=== PATIENT | female | born 1960 | race Two or more races ===

== ENCOUNTER 2024-11-12 23:35 | Inpatient (IN) | payer MEDICARE, OTHER ==
[~2024-11-12] VITALS: Ht 165.1 cm; Wt 169.8 kg
[2024-11-13] VITALS (12 sets, daily range): BP systolic 100–129; BP diastolic 26–48; PULSE 56–97; RESP 16–20; TEMP 98.1–98.4; O2SAT 95–100
--- NOTE | 2024-11-13 00:05 | ED.PDOC ---
SOB-HPI HPI Comments 64-year-old female with a history of chronic lymphedema, anemia, morbid obesity, hypertension, dyslipidemia, GERD, hypothyroidism, CKD, asthma, arthritis and vertigo brought in by EMS for shortness of breath. EMS reports patient's initial oxygen saturation was 88% on room air, improved to 95% on 2 L nasal cannula. Patient states she has been progressively more short of breath for the past week, with the associated dry cough and wheezing. She states she has used her home nebulizer and inhaler without relief. Patient also notes worsening lower extremity edema for the past 3 weeks, with edema now extending to her torso and upper extremities. She states she was taken off Lasix years ago by her primary physician, as she was told it would not help with lymphedema. She states she has been seen by a senior technical writer in the past, underwent workup including Holter monitoring, and was told there was no heart disease. She denies any chest pain, fever, decreased urine output or new extremity pain. She does have a history of chronic arthritis in her knees and hips, which she states has been stable. Patient states she is having difficulty ambulating due to the worsening edema in her legs and the shortness of breath. She states she has not been able to follow-up with her primary doctor because she is unable to get into her car. Patient states her has not been able to assist her. Chief Complaint: Shortness of Breath Time Seen by MD: 00:05 Reviewed notes: Didactic Instructor Notes Information Source: Patient, Emergency Med Personnel Mode of Arrival: EMS Severity: Moderate Timing: Weeks Duration: Since onset Context: At Rest, With Light Exertion History of: Asthma Prehospital treatment: 12 Lead EKG, Breathing Tx, Oxygen Associated Signs and Symptoms: Wheeze, Cough If cough with SOB: Non-Productive Past Medical History PAST MEDICAL HISTORY: Anemia, Arthritis, Asthma, CKF, GERD, High Lipids, HTN, Thyroid (Hypo) Past Medical History (Other): Lymphedema, morbid obesity Surgical History: Cholecystectomy, Hysterectomy Surgical History (Other): Gastric bypass TALENT ACQUISITION ASSOCIATE History: Denies all TALENT ACQUISITION ASSOCIATE Hx Family History Family History: Reviewed,noncontributory to illness Social History Smoker: Non-Smoker, Quit Greater Than 1 Year Alcohol: Denies ETOH Use Drugs: Denies Drug Use Lives In: Home Constitutional: reports: fatigue, weakness; denies: chills, diaphoresis, fever, malaise, sweats, others EENTM: denies: blurred vision, double vision, ear bleeding, ear discharge, ear drainage, ear pain, ear ringing, eye pain, eye redness, hearing loss, mouth pain, mouth swelling, nasal discharge, nose bleeding, nose congestion, nose pain, photophobia, tearing, throat pain, throat swelling, voice changes, others Respiratory: reports: cough, SOB at rest, shortness of breath, SOB with excertion, wheezing; denies: hemoptysis, orthopnea, stridor, others Cardiovascular: reports: chest pain; denies: dizzy spells, diaphoresis, Dyspnea on exertion, edema, irregular heart beat, left arm pain, lightheadedness, palpitations, PND, syncope, others Gastrointestinal: denies: abdomen distended, abdominal pain, blood streaked bowels, constipated, diarrhea, dysphagia, difficulty swallowing, hematemesis, melena, nausea, poor appetite, poor fluid intake, rectal bleeding, rectal pain, vomiting, others Genitourinary: denies: abnormal vagina bleeding, burning, dyspareunia, dysuria, flank pain, frequency, hematuria, incontinence, pain, , vagina discharge, urgency, others Neurological: denies: dizziness, fainting, headache, left sided numbness, left sided weakness, numbness, paresthesia, pre-existing deficit, right sided numbness, right sided weakness, seizure, speech problems, tingling, tremors, weakness, others Musculoskeletal: denies: back pain, gout, joint pain, joint swelling, muscle pain, muscle stiffness, neck pain, others Integumetry: denies: bruises, change in color, change in hair/nails, dryness, laceration, lesions, lumps, rash, wounds, others Allergic/Immunocompromised: denies: Difficulty Healing, Frequent Infections, Hives, Itching, others Hematologic/Lymphatic: denies: anemia, blood clots, easy bleeding, easy bruising, swollen glands, others Endocrine: denies: excessive hunger, excessive sweating, excessive thirst, excessive urination, flushing, intolerance to cold, intolerance to heat, unexplained weight gain, unexplained weight loss, others Psychiatric: denies: anxiety, bipolar disorder, depression, hopeless, panic disorder, schizophrenia, sleepless, suicidal, others Physical Exam General Appearance: No Apparent Distress, Obese HEENT: Other (Pupils and face symmetric. Moist mucous membranes.) Neck: Full Range of Motion, Normal Inspection Respiratory: Crackles, No Accessory Muscle Use, No Respiratory Distress Cardiovascular: No JVD, Regular Rate/Rhythm Breast Exam: Deferred Gastrointestinal: Non Tender, Soft Genitalia: Deferred Pelvic: Deferred Rectal: Deferred Extremities: Leg edema, Non-tender, Pedal edema, Other (4+ bilateral lower extremity pitting edema) Neurologic: Alert (Oriented x4), Normal Affect, Normal Mood Cerebellar Function: NOT DONE Reflexes: NOT DONE Skin: Dry, Pallor, Warm Lymphatic: NOT DONE EKG EKG : Comments Sinus rhythm, rate 77, short CA interval at 53, normal QRS and QTC intervals, normal axis, normal QRS, no ST/T changes. Was a procedure done? Was a procedure done?: No Differential Dx Differential Diagnosis: Asthma, Bronchitis, CHF, COPD, Myocardial infarction, Panic Attack, Pneumonia, Respiratory Distress, URI Comments anemia, liver disease, kidney disease, worsening lymphedema, DVT, among others X-Ray, Labs, Meds, VS Vital Signs Date Time Temp Pulse Resp B/P (MAP) Pulse Ox O2 Delivery O2 Flow Rate FiO2 11/13/24 05:28 98.2 80 18 124/42 98.2 11/13/24 05:13 98.1 56 18 100/27 98.1 11/13/24 05:05 98.1 73 18 113/26 98.1 11/13/24 04:45 98.1 75 18 100/24 (49) 97 98.1 11/13/24 04:00 57 17 104/27 (52) 98 11/13/24 02:00 77 14 127/68 (87) 98 11/13/24 01:45 97.9 83 12 112/29 (56) 98 97.9 11/13/24 00:48 20 96 Nasal Cannula* 3 32 11/13/24 00:30 Nasal Cannula* 4 36 11/13/24 00:06 98.6 84 24 119/43 (68) 96 98.6 11/12/24 23:40 77 Lab Test 11/13/24 04:20 11/13/24 01:04 11/13/24 00:10 Range/Units Urine Color Light-yellow Yellow Urine Clarity Clear Clear Urine pH 5.5 5.0-9.0 Urine Specific [place] 1.021 1.001-1.035 Urine Protein Negative Negative Urine Ketones Negative Negative Urine Blood Negative Negative /uL Urine Nitrite 1+ H Negative Urine Bilirubin Negative Negative Urine Urobilinogen Normal Negative mg/dL Urine Leukocyte Esterase Negative Negative /uL Urine RBC <1 0 - 4 /hpf Urine Microscopic WBC < 1 0-5 /HPF Urine Squamous Epithelial Cells Few <5 /hpf Urine Bacteria Few H None Seen /hpf Urine Yeast (Budding) Occasional None Seen /hpf Urine Glucose Normal Normal mg/dL Troponin I High Sensitivity < 3 L < 3 L </=34 ng/L White Blood Count 5.2 4.4-10.8 10^3/uL Red Blood Count 3.07 L 4.0-5.20 10^6/uL Hemoglobin 6.2 *L 12.2-16.2 g/dL Hematocrit 21.6 L 36.0-46.0 % Mean Corpuscular Volume 70.3 L 80.0-100.0 fL Mean Corpuscular Hemoglobin 20.3 L 28.0-32.0 pg Mean Corpuscular Hemoglobin Concent 28.8 L 32.0-36.0 g/dL Red Cell Distribution Width 21.2 H 11.8-14.3 % Platelet Count 295 140-450 10^3/uL Mean Platelet Volume 8.3 6.9-10.8 fL Neutrophils (%) (Auto) 51.6 37.0-80.0 % Lymphocytes (%) (Auto) 35.1 10.0-50.0 % Monocytes (%) (Auto) 10.3 0.0-12.0 % Eosinophils (%) (Auto) 2.3 0.0-7.0 % Basophils (%) (Auto) 0.7 0.0-2.0 % Neutrophils # (Auto) 2.7 1.6-8.6 10 ^3/uL Lymphocytes # (Auto) 1.8 0.4-5.4 10 ^3/uL Monocytes # (Auto) 0.5 0-1.3 10 ^3/uL Eosinophils # (Auto) 0.1 0-0.8 10 ^3/uL Basophils # (Auto) 0 0-0.2 10 ^3/uL Nucleated Red Blood Cells 0.4 % Platelet Estimate Adequate Hypochromasia (manual) Moderate Anisocytosis (manual) Slight Microcytosis Slight Stomatocytes Few Sodium Level 143 136-145 mmol/L Potassium Level 4.5 3.5-5.1 mmol/L Chloride Level 111 H 98-107 mmol/L Carbon Dioxide Level 25 20-31 mmol/L Anion Gap 7 5-15 Blood Urea Nitrogen 32 H 9-23 mg/dL Creatinine 0.77 0.550-1.02 mg/dL Glomerular Filtration Rate Calc 86 >90 mL/min BUN/Creatinine Ratio 41.6 H 10.0-20.0 Serum Glucose 100 74-106 mg/dL Calcium Level 7.8 L 8.7-10.4 mg/dL Total Bilirubin 0.3 0.2-1.0 mg/dL Aspartate Amino Transferase (AST) 17 13-40 U/L Alanine Aminotransferase (ALT) 13 7-40 U/L Alkaline Phosphatase 100 46-116 U/L B-Type Natriuretic Peptide 238.74 0-100 pg/mL Total Protein 4.9 L 5.7-8.2 g/dL Albumin 2.8 L 3.2-4.8 g/dL Current Medications Medications (Trade) Dose Ordered Sig/Winifred Route Start Time Stop Time Status Last Admin Albuterol (Ventolin Medneb) 5 mg ONCE ONCE NEB 11/13/24 00:00 11/13/24 00:01 DC 11/13/24 00:47 Ipratropium [place] (Atrovent Medneb) 0.5 mg ONCE ONCE NEB 11/13/24 00:00 11/13/24 00:01 DC 11/13/24 00:47 Methylprednisolone Sodium Succinate (Solu Medrol) 125 mg ONCE ONCE IV 11/13/24 00:00 11/13/24 00:01 DC 11/13/24 01:35 Acetaminophen/ Hydrocodone Bitart (Ledbetter 5/325MG Tab) 2 tab ONCE ONCE PO 11/13/24 00:00 11/13/24 00:02 DC 11/13/24 01:43 PROCEDURE(s): CXRP - CHEST PORTABLE REASON: sob ORDER NUMBER(s): [id number], ACCESSION NUMBER(s): [id number] EXAM: XY CHEST PORTABLE CLINICAL HISTORY: sob TECHNIQUE: Single AP view of the chest WID: COMPARISON: None FINDINGS: Lines and tubes: None Chest: Cardiomegaly with mild prominence of the central pulmonary vasculature. Prominence of the main pulmonary artery. No pleural effusion, pneumothorax, or consolidation. The osseous structures are grossly intact. IMPRESSION: Mild cardiomegaly and pulmonary vascular congestion. Prominence of the main pulmonary artery which can be seen in the setting of pulmonary hypertension. EDURE(s): BLDVT - BiLat Lower DVT REASON: edema ORDER NUMBER(s): [id number], ACCESSION NUMBER(s): [id number] CLINICAL HISTORY: edema TECHNIQUE: Color and duplex doppler imaging of the bilateral lower extremity veins was performed. Vessel compression if possible was also performed. WID: COMPARISON: None FINDINGS: Slightly limited exam due to patient immobility and body habitus. Some of the deep veins in both lower extremities are not visualized. Right Lower Extremity: Right common femoral vein: Normal compressibility and flow. Right femoral vein: The right mid superficial femoral vein not visualized. Otherwise Normal compressibility and flow. Right popliteal vein: Normal compressibility and flow. Proximal calf veins are normally compressible. Left Lower Extremity: Left common femoral vein: Normal compressibility and flow. Left femoral vein: The left mid superficial femoral vein not visualized. Otherwise, Normal compressibility and flow. Left popliteal vein: Not visualized Calf veins are not visualized. IMPRESSION: NO SONOGRAPHIC EVIDENCE FOR DEEP VENOUS THROMBOSIS IN THE visualized BILATERAL LOWER EXTREMITY VEINS. Some of the deep veins are not visualized X-Ray, Labs, Meds, VS Comment 64-year-old female with a history of chronic lymphedema, anemia, hypertension, dyslipidemia, GERD, hypothyroid, CKD, asthma, arthritis, vertigo and morbid obesity presenting with shortness of breath Vitals remarkable for oxygen saturation 88% on room air Exam remarkable for rales at bilateral lung bases and pallor Rhythm strip independently interpreted by me: Sinus rhythm, rate 77, no ectopy. Chest x-ray IMPRESSION: Mild cardiomegaly and pulmonary vascular congestion. Prominence of the main pulmonary artery which can be seen in the setting of pulmonary hypertension. Bilateral lower extremity ultrasound negative for DVT CBC remarkable for hemoglobin 6.2, hematocrit 21.6, CMP remarkable for BUN 32, BNP 238.74, troponin negative Patient treated with the following in the ED: Albuterol 5 mg/Atrovent 0.5 mg nebulized, Solu-Medrol 125 mg IV, Ledbetter 5/325 mg 2 tabs p.o. Typed and crossed for 1 unit packed red cells and transfusion ordered On re-evaluation after the breathing treatment, symptoms have improved. Patient is saturating normally on nasal cannula oxygen and not in respiratory distress. Plan is to admit the patient for transfusion and respiratory support as needed. Patient might benefit from cardiology evaluation to rule out CHF. Time of 1ST Reevaluation: 23:52 Reevaluation 1ST: Unchanged Time of 2ND Reevaluation: 02:00 Reevaluation 2ND: Improved Patient Education/Counseling: Diagnosis, Treatment Family Education/Counseling: No Family Present SEPSIS Sepsis Screen Physician Orders Chest Portable (11/12/24 23:53) Electrocardigram (11/12/24 23:53) Bilat Lower Dvt (11/13/24 00:12) Insert/Manage Urinary Catheter QSHIFT (11/13/24 02:18) Vital Signs Date Time Temp Pulse Resp B/P (MAP) Pulse Ox O2 Delivery O2 Flow Rate FiO2 11/13/24 05:28 98.2 80 18 124/42 98.2 11/13/24 05:13 98.1 56 18 100/27 98.1 11/13/24 05:05 98.1 73 18 113/26 98.1 11/13/24 04:45 98.1 75 18 100/24 (49) 97 98.1 11/13/24 04:00 57 17 104/27 (52) 98 11/13/24 02:00 77 14 127/68 (87) 98 11/13/24 01:45 97.9 83 12 112/29 (56) 98 97.9 11/13/24 00:48 20 96 Nasal Cannula* 3 32 11/13/24 00:30 Nasal Cannula* 4 36 11/13/24 00:06 98.6 84 24 119/43 (68) 96 98.6 11/12/24 23:40 77 Laboratory Tests Test 11/13/24 00:10 White Blood Count 5.2 10^3/uL (4.4-10.8) Medications Medications Dose Ordered Sig/Winifred Route Start Time Stop Time Status Last Admin Dose Admin Acetaminophen/ Hydrocodone Bitart 2 tab ONCE ONCE PO 11/13/24 00:00 11/13/24 00:02 DC 11/13/24 01:43 Albuterol 5 mg ONCE ONCE NEB 11/13/24 00:00 11/13/24 00:01 DC 11/13/24 00:47 Ipratropium [place] 0.5 mg ONCE ONCE NEB 11/13/24 00:00 11/13/24 00:01 DC 11/13/24 00:47 Methylprednisolone Sodium Succinate 125 mg ONCE ONCE IV 11/13/24 00:00 11/13/24 00:01 DC 11/13/24 01:35 Departure 1 Departure Time of Disposition: 00:50 Impression: Primary Impression: Symptomatic anemia Additional Impressions: Asthma exacerbation Acute respiratory failure Disposition: ADMITTED INPATIENT Admit to: Tele Condition: Guarded Critical Care Note Critical Care Time?: Yes (35 min-critical care time only) Critical care comment: Critical care time including multiple bedside re-evaluations, review of lab and imaging studies, and discussion of the case with the admitting provider. Patient is high risk for respiratory and/or hemodynamic decompensation. Stability Stability form required: No Heart Score Heart Score: Heart Score Response (Comments) Value History N/A 0 EKG N/A 0 Age N/A 0 Risk Factors N/A 0 Troponin N/A 0 Total 0 I personally scribed for MARISA CARTER MD ([email or web address]) on 11/13/24 at 00:05. Electronically submitted by Julio Turner ([email or web address]). I personally scribed for MARISA CARTER MD ([email or web address]) on 11/13/24 at 00:06. Electronically submitted by Julio Turner ([facility]). MARISA CRATER MD Nov 13, 2024 00:05
[2024-11-13 00:30] LABS: Hematocrit 21.6 % (36.0-46.0); Mean Corpuscular Hemoglobin 20.3 pg (28.0-32.0); Mean Corpuscular Volume 70.3 fL (80.0-100.0); Nucleated Red Blood Cells % 0.4 %
[2024-11-13 00:34] LABS: Hemoglobin 6.2 g/dL (12.2-16.2)
[2024-11-13 00:44] LABS: Alanine Aminotransferase 13 U/L (7-40); Alkaline Phosphatase 100 U/L (46-116); Anion Gap 7 (5-15); BUN/Creatinine Ratio 41.6 (10.0-20.0); Carbon Dioxide 25 mmol/L (20-31); Glucose 100 mg/dL (74-106); Potassium 4.5 mmol/L (3.5-5.1); Sodium 143 mmol/L (136-145)
[2024-11-13] MEDS: IPRATROPIUM BROM 0.5 MG/2.5ML INH SOL NEB ONE (00:47)
[2024-11-13] MEDS: ALBUTEROL SULF 2.5 MG/0.5ML(0.5%) NEB SOLN NEB ONE (00:47)
[2024-11-13 00:49] LABS: Albumin 2.8 g/dL (3.2-4.8); Bilirubin, Total 0.3 mg/dL (0.2-1.0); Blood Urea Nitrogen 32 mg/dL (9-23); Calcium 7.8 mg/dL (8.7-10.4); Chloride 111 mmol/L (98-107); Total Protein 4.9 g/dL (5.7-8.2)
[2024-11-13 00:55] LABS: Anisocytosis Slight
[2024-11-13 00:57] LABS: Stomatocytes Few
--- NOTE | 2024-11-13 01:21 | DVH ---
CLINICAL HISTORY: edema TECHNIQUE: Color and duplex doppler imaging of the bilateral lower extremity veins was performed. Ves delmy compression if possible was also performed. WID: COMPARISON: None FINDINGS: Slightly limited exam due to patient immobility and body habitus. Some of the deep veins in both lowe r extremities are not visualized. Right Lower Extremity: Right common femoral vein: Normal compressibility and flow. Right femoral vein: The right mid superficial femoral vein not visualized. Otherwise Normal compressi bility and flow. Right popliteal vein: Normal compressibility and flow. Proximal calf veins are normally compressible. Left Lower Extremity: Left common femoral vein: Normal compressibility and flow. Left femoral vein: The left mid superficial femoral vein not visualized. Otherwise, Normal compressib ility and flow. Left popliteal vein: Not visualized Calf veins are not visualized. IMPRESSION: NO SONOGRAPHIC EVIDENCE FOR DEEP VENOUS THROMBOSIS IN THE visualized BILATERAL LOWER EXTREMITY VEINS. Some of the deep veins are not visualized
[2024-11-13] MEDS: methylPREDNISolone SOD SUCC 125 MG/2 ML VL IV ONE (01:35)
[2024-11-13] MEDS: HYDROcodone-ACET 5/325MG TAB PO ONE (01:43)
--- NOTE | 2024-11-13 02:04 | DVH ---
EXAM: XY CHEST PORTABLE CLINICAL HISTORY: sob TECHNIQUE: Single AP view of the chest WID: COMPARISON: None FINDINGS: Lines and tubes: None Chest: Cardiomegaly with mild prominence of the central pulmonary vasculature. Prominence of the main pulmon nancy artery. No pleural effusion, pneumothorax, or consolidation. The osseous structures are grossly intact. IMPRESSION: Mild cardiomegaly and pulmonary vascular congestion. Prominence of the main pulmonary artery which can be seen in the setting of pulmonary hypertension.
[2024-11-13 05:26] LABS: Urine Budding Yeast OCCASIONAL /hpf (None Seen); Urine Protein, UAD Negative (Negative)
[2024-11-13] MEDS ORDERED: ONDANSETRON HCL 4 MG/2 ML VIAL IV PRN (05:45)
[2024-11-13] MEDS ORDERED: NITROGLYCERIN 0.4 MG SL TAB SL PRN (05:45)
[2024-11-13] MEDS ORDERED: MORPHINE SULFATE INJ 2 MG/ml SYRG IV PRN (05:45)
--- NOTE | 2024-11-13 06:13 | DVHHP2 ---
History of Present Illness Reason for Visit: Symptomatic anemia History of Present Illness The patient is a 64-year-old female morbidly obese with multiple past medical history including arthritis, asthma, anemia, thyroid disease, and hypertension who presented to [facility] ED with complaint of shortness of breaths. Patient reports she has been experiencing shortness of breaths associated with generalized weakness, dry cough, wheezing, getting worse that prompted this visit. She states she has used her home nebulizer and inhaler without relief. Patient also notes worsening lower extremity edema for the past 3 weeks, with edema now extending to her torso and upper extremities. She reports she has been seen by a wet process miller head assistant in the past, underwent workup including Holter monitoring, and was told there was no heart disease. Patient was seen and evaluated in the ED, laboratory data shows WBC 5.2, hemoglobin 6.2, hematocrit 21.6, platelets 295, sodium 143, potassium 4.5, BUN 32, creatinine 0.77, glucose 100, calcium 7.8, BNP 238.74, troponin < 3, albumin 2.8, protein 4.9, blood pressure 100/27, heart rate 56, temperature 98.1 F, O2 saturation 97% on oxygen. Chest x-ray revealing mild cardiomegaly and pulmonary vascular congestion. Patient was started on IV Solu-Medrol, given breathing treatment, please see medication orders section in the computer. On my assessment, patient denies chest pain, no headache, no dizziness, no diaphoresis, currently on oxygen, no nausea, no vomiting, no fever, no chills. Patient was admitted for further evaluation and medical management. Past Medical History Anemia, Arthritis, Asthma, CKF, GERD, High Lipids, HTN, Thyroid (Hypo), Lymphedema, Morbid obesity Past Surgical History Cholecystectomy, Hysterectomy, Gastric bypass Family History Reviewed, noncontributory to the management of this case. Past Social History The patient lives at home, denies smoking, alcohol or illicit drugs abuse. Review of Systems Constitutional: Yes: Weakness, Other (Fatigue); No: Fever, Chills, Sweats, Malaise Eyes: No: Pain, Vision change, Conjunctivae inflammation, Eyelid inflammation, Other, Redness ENT: No: Ear pain, Ear discharge, Nose pain, Nose discharge, Nose congestion, Mouth pain, Mouth swelling, Throat pain, Throat swelling, Other Respiratory: Cough, Shortness of breath, SOB with excertion, Wheezing, Other (SOB at rest); No: Dry, Hemoptysis, Pleuritic Pain, Sputum, Wheezing Cardiovascular: No: Chest Pain, Palpitations, Orthopnea, Paroxysmal Noc. Dyspnea, Edema, Lt Headedness, Other Gastrointestinal: No: Nausea, Vomiting, Abdominal Pain, Diarrhea, Constipation, Melena, Hematochezia, Other Genitourinary: No Dysuria, No Frequency, No Incontinence, No Hematuria, No Retention, No Other Musculoskeletal: No: other, neck pain, shoulder pain, arm pain, back pain, hand pain, leg pain, foot pain Skin: No: Rash, Lesions, Jaundice, Bruising, Other Neurological: No: Weakness, Numbness, Incoordination, Change in speech, Confusion, Seizures, Other Allergies: Coded Allergies: Metronidazole (Verified Allergy, Unknown, 11/13/24) Exam Vital Signs Vital Signs Date Time Temp Pulse Resp B/P (MAP) Pulse Ox O2 Delivery O2 Flow Rate FiO2 11/13/24 05:13 98.1 56 18 100/27 98.1 11/13/24 04:45 97 11/13/24 00:48 Nasal Cannula* 3 32 General Appearance: Alert, Oriented X3, Cooperative, No acute distress HEENT: Atraumatic, PERRLA, EOMI, Mucous membr. moist/pink Respiratory: Normal air movement Cardiovascular: Regular rate, Normal S1, Normal S2, No murmurs Abdominal: Normal bowel sounds, Soft, No tenderness, No hepatospenomegaly, No masses Extremities: No clubbing, No cyanosis, Normal pulses, No tenderness/swelling Skin: No rashes, No significant lesion Neuro: Normal speech, Normal tone, Sensation intact, Cranial nerves 3-12 NL, Reflexes 2+, Other (Generalized weakness) Psych/Mental Status: Mental status NL, Mood NL Labs/Xrays Labs Test 11/13/24 04:20 11/13/24 01:04 11/13/24 00:10 Range/Units Urine Color Light-yellow Yellow Urine Clarity Clear Clear Urine pH 5.5 5.0-9.0 Urine Specific [place] 1.021 1.001-1.035 Urine Protein Negative Negative Urine Ketones Negative Negative Urine Blood Negative Negative /uL Urine Nitrite 1+ H Negative Urine Bilirubin Negative Negative Urine Urobilinogen Normal Negative mg/dL Urine Leukocyte Esterase Negative Negative /uL Urine RBC <1 0 - 4 /hpf Urine Microscopic WBC < 1 0-5 /HPF Urine Squamous Epithelial Cells Few <5 /hpf Urine Bacteria Few H None Seen /hpf Urine Yeast (Budding) Occasional None Seen /hpf Urine Glucose Normal Normal mg/dL Troponin I High Sensitivity < 3 L </=34 ng/L White Blood Count 5.2 4.4-10.8 10^3/uL Red Blood Count 3.07 L 4.0-5.20 10^6/uL Hemoglobin 6.2 *L 12.2-16.2 g/dL Hematocrit 21.6 L 36.0-46.0 % Mean Corpuscular Volume 70.3 L 80.0-100.0 fL Mean Corpuscular Hemoglobin 20.3 L 28.0-32.0 pg Mean Corpuscular Hemoglobin Concent 28.8 L 32.0-36.0 g/dL Red Cell Distribution Width 21.2 H 11.8-14.3 % Platelet Count 295 140-450 10^3/uL Mean Platelet Volume 8.3 6.9-10.8 fL Neutrophils (%) (Auto) 51.6 37.0-80.0 % Lymphocytes (%) (Auto) 35.1 10.0-50.0 % Monocytes (%) (Auto) 10.3 0.0-12.0 % Eosinophils (%) (Auto) 2.3 0.0-7.0 % Basophils (%) (Auto) 0.7 0.0-2.0 % Neutrophils # (Auto) 2.7 1.6-8.6 10 ^3/uL Lymphocytes # (Auto) 1.8 0.4-5.4 10 ^3/uL Monocytes # (Auto) 0.5 0-1.3 10 ^3/uL Eosinophils # (Auto) 0.1 0-0.8 10 ^3/uL Basophils # (Auto) 0 0-0.2 10 ^3/uL Nucleated Red Blood Cells 0.4 % Platelet Estimate Adequate Hypochromasia (manual) Moderate Anisocytosis (manual) Slight Microcytosis Slight Stomatocytes Few Sodium Level 143 136-145 mmol/L Potassium Level 4.5 3.5-5.1 mmol/L Chloride Level 111 H 98-107 mmol/L Carbon Dioxide Level 25 20-31 mmol/L Anion Gap 7 5-15 Blood Urea Nitrogen 32 H 9-23 mg/dL Creatinine 0.77 0.550-1.02 mg/dL Glomerular Filtration Rate Calc 86 >90 mL/min BUN/Creatinine Ratio 41.6 H 10.0-20.0 Serum Glucose 100 74-106 mg/dL Calcium Level 7.8 L 8.7-10.4 mg/dL Total Bilirubin 0.3 0.2-1.0 mg/dL Aspartate Amino Transferase (AST) 17 13-40 U/L Alanine Aminotransferase (ALT) 13 7-40 U/L Alkaline Phosphatase 100 46-116 U/L B-Type Natriuretic Peptide 238.74 0-100 pg/mL Total Protein 4.9 L 5.7-8.2 g/dL Albumin 2.8 L 3.2-4.8 g/dL PATIENT: VANDANA MARX ACCT: [id number] UNIT: [id number] : 1960 LOC: ER ROOM / BED: / AGE / SEX: 64 / F ADM STATUS: REG ER SERVICE 001 ORDERING PHYSICIAN: MARISA CARTER MD PROCEDURE(s): BLDVT - BiLat Lower DVT REASON: edema ORDER NUMBER(s): [id number], ACCESSION NUMBER(s): [id number] CLINICAL HISTORY: edema TECHNIQUE: Color and duplex doppler imaging of the bilateral lower extremity vei ns was performed. Vessel compression if possible was also performed. WID: COMPARISON: None FINDINGS: Slightly limited exam due to patient immobility and body habitus. Some of the deep veins in both lower extremities are not visualized. Right Lower Extremity: Right common femoral vein: Normal compressibility and flow. Right femoral vein: The right mid superficial femoral vein not visualized. Otherwise Normal compressibility and flow. Right popliteal vein: Normal compressibility and flow. Proximal calf veins are normally compressible. Left Lower Extremity: Left common femoral vein: Normal compressibility and flow. Left femoral vein: The left mid superficial femoral vein not visualized. Otherwise, Normal compressibility and flow. Left popliteal vein: Not visualized Calf veins are not visualized. IMPRESSION: NO SONOGRAPHIC EVIDENCE FOR DEEP VENOUS THROMBOSIS IN THE visualized BILATERAL LOWER EXTREMITY VEINS. Some of the deep veins are not visualized ORDERING PHYSICIAN: MARISA CARTER MD PROCEDURE(s): CXRP - CHEST PORTABLE REASON: sob ORDER NUMBER(s): [id number], ACCESSION NUMBER(s): [id number] EXAM: XY CHEST PORTABLE CLINICAL HISTORY: sob TECHNIQUE: Single AP view of the chest WID: COMPARISON: None FINDINGS: Lines and tubes: None Chest: Cardiomegaly with mild prominence of the central pulmonary vasculature. Prominence of the main pulmonary artery. No pleural effusion, pneumothorax, or consolidation. The osseous structures are grossly intact. IMPRESSION: Mild cardiomegaly and pulmonary vascular congestion. Prominence of the main pulmonary artery which can be seen in the setting of pulmonary hypertension. Assessment/Plan Assessment/Plan Symptomatic anemia Asthma exacerbation Acute respiratory failure Generalized weakness Plan 1. Admit to telemetry unit 2. Breathing treatment 3. Pain control management 4. Management of fluids and electrolytes 5. Consultation for hospitalist 6. Diagnostic tests chest x-ray 7. DVT prophylaxis on SCDs 8. Repeat labs CBC, CMP in a.m. 9. Continue with current medical management 10. Treatment plan discussed with patient and RN. Patient verbalized understanding. Plan discussed with: Patient, Other (RN) Problem List: (1) Symptomatic anemia (2) Asthma exacerbation (3) Acute respiratory failure (4) Generalized weakness Date of Service: Nov 13, 2024 Billing Provider: KATINA SHEARER DNP Common Visit Codes: [id number] INP/OBS CARE (HIGH) KATINA SHEARER DNP Nov 13, 2024 06:13
[2024-11-13] MEDS: LEVOTHYROXINE SODIUM 25 MCG TAB PO SCH (06:24)
--- NOTE | 2024-11-13 07:00 | ECG ---
[facility] Test Date: 2024-11-12 Test Time: 23:40:11 Pat Name: VANDANA MARX Department: ED Room: 0270T Gender: F Stone Sawyer: johanna : 1960 Requested By: MARISA SALMERON Order Number: [id number] Reading MD: Chinedu Allen Measurements Intervals Scalf Rate: 77 P: 0 NC: 53 QRS: 47 QRSD: 104 T: 37 QT: 361 QTc: 409 Interpretive Statements Sinus rhythm Short NC interval Low voltage, extremity and precordial leads Abnormal R-wave progression, early transition Electronically Signed On 11-18-2024 18:47:59 PDT by Chinedu Allen Please click the below link to view image of tracing.
[2024-11-13] MEDS: SODIUM CHLOR 0.9% PF (SALINE LOCK) 10ML VIAL/SYR IV SCH (07:30)
[2024-11-13] MEDS: methylPREDNISolone SOD SUCC 40 MG/ML VL IV SCH (07:34)
[2024-11-13] MEDS: ALBUMIN 25% 100 ML IV ONE (07:35)
[2024-11-13 08:37] LABS: Hematocrit 23.9 % (36.0-46.0); Mean Corpuscular Hemoglobin 20.3 pg (28.0-32.0); Mean Corpuscular Volume 69.9 fL (80.0-100.0); Nucleated Red Blood Cells % 0.4 %
[2024-11-13 08:42] LABS: Hemoglobin 6.9 g/dL (12.2-16.2)
[2024-11-13 08:53] LABS: Alanine Aminotransferase 14 U/L (7-40); Alkaline Phosphatase 107 U/L (46-116); Anion Gap 7 (5-15); BUN/Creatinine Ratio 31.9 (10.0-20.0); Bilirubin, Total 0.4 mg/dL (0.2-1.0); Carbon Dioxide 25 mmol/L (20-31); Potassium 4.8 mmol/L (3.5-5.1); Sodium 142 mmol/L (136-145)
[2024-11-13 08:54] LABS: Albumin 3.1 g/dL (3.2-4.8); Blood Urea Nitrogen 30 mg/dL (9-23); Calcium 8.6 mg/dL (8.7-10.4); Chloride 110 mmol/L (98-107); Glucose 127 mg/dL (74-106); Total Protein 5.3 g/dL (5.7-8.2)
[2024-11-13] MEDS: CALCIUM GLUC 1,000mg/50ml-NS 50 ML IV ONE (09:19)
[2024-11-13] MEDS: FAMOTIDINE (10MG/ML) 2ML VL IV SCH (10:04)
--- NOTE | 2024-11-13 13:53 | DVHPN2 ---
Reviewed: Care Plan, H&P, Labs, Medications, Previous Orders, Radiology Changes from previous H/P or p: No Changes Eyes: No Pain, No Vision change, No Conjunctivae inflammation, No Eyelid inflammation, No Other, No Redness ENT: No Ear pain, No Ear discharge, No Nose pain, No Nose discharge, No Nose congestion, No Mouth pain, No Mouth swelling, No Throat pain, No Throat swelling, No Other Cardiovascular: No Chest Pain, No Palpitations, No Orthopnea, No Paroxysmal Noc. Dyspnea, No Edema, No Lt Headedness, No Other Respiratory: Cough; No Dry; Shortness of breath, SOB with excertion, Wheezing; No Hemoptysis, No Pleuritic Pain, No Sputum; Other (SOB at rest) Gastrointestinal: No Nausea, No Vomiting, No Abdominal Pain, No Diarrhea, No Constipation, No Melena, No Hematochezia, No Other Genitourinary: No Dysuria, No Frequency, No Incontinence, No Hematuria, No Retention, No Other Musculoskeletal: No other, No neck pain, No shoulder pain, No arm pain, No back pain, No hand pain, No leg pain, No foot pain Skin: No Rash, No Lesions, No Jaundice, No Bruising, No Other Objective Vitals Vital Signs Date Time Temp Pulse Resp B/P (MAP) Pulse Ox O2 Delivery O2 Flow Rate FiO2 11/13/24 12:00 48 14 108/38 (61) 98 11/13/24 08:38 98.2 4.0 98.2 11/13/24 07:46 Nasal Cannula* 36 Medications Current Medications Medications Dose Ordered Sig/Winifred Route Start Time Stop Time Status Last Admin Dose Admin Atorvastatin Calcium 20 mg HS PO 11/13/24 22:00 Methylprednisolone Sodium Succinate 40 mg Q8HR IV 11/13/24 06:00 11/13/24 07:34 40 MG Famotidine 20 mg Q12HR IV 11/13/24 10:00 11/13/24 10:04 20 MG Levothyroxine Sodium 25 mcg QAM@0600 PO 11/13/24 06:00 11/13/24 06:24 25 MCG Albuterol 2.5 mg Q4HPRN PRN NEB 11/13/24 05:45 Ipratropium [place] 0.5 mg Q4HPRN PRN NEB 11/13/24 05:45 Sodium Chloride 10 ml Q8HR IV 11/13/24 06:00 11/13/24 07:30 10 ML Acetaminophen/ Hydrocodone Bitart 1 tab Q4HP PRN PO 11/13/24 05:45 Ondansetron HCl 4 mg Q4HP PRN IV 11/13/24 05:45 Docusate Sodium 100 mg BIDPRN PRN PO 11/13/24 05:45 Acetaminophen 650 mg Q6HP PRN PO 11/13/24 05:45 Nitroglycerin 0.4 mg Q5MINP PRN SL 11/13/24 05:45 Morphine Sulfate 2 mg Q30M PRN IV 11/13/24 05:45 Aspirin 81 mg DAILY PO 11/13/24 10:00 11/13/24 10:04 81 MG Laboratory Results Laboratory Tests 11/13/24 08:00 Chemistry Test 11/13/24 00:10 11/13/24 08:00 Albumin 2.8 g/dL (3.2-4.8) L 3.1 g/dL (3.2-4.8) L Calcium Level 7.8 mg/dL (8.7-10.4) L 8.6 mg/dL (8.7-10.4) L Total Protein 4.9 g/dL (5.7-8.2) L 5.3 g/dL (5.7-8.2) L Cardiac Markers Test 11/13/24 00:10 B-Type Natriuretic Peptide 238.74 pg/mL (0-100) LFT Test 11/13/24 00:10 11/13/24 08:00 Alanine Aminotransferase (ALT) 13 U/L (7-40) 14 U/L (7-40) Alkaline Phosphatase 100 U/L (46-116) 107 U/L (46-116) Aspartate Amino Transferase (AST) 17 U/L (13-40) 22 U/L (13-40) Total Bilirubin 0.3 mg/dL (0.2-1.0) 0.4 mg/dL (0.2-1.0) HgA1c, TSH Test 11/13/24 08:00 Thyroid Stimulating Hormone (TSH) 2.28 uIU/mL (0.55-4.78) Urinalysis Test 11/13/24 04:20 Urine Color Light-yellow (Yellow) Urine Clarity Clear (Clear) Urine pH 5.5 (5.0-9.0) Urine Specific [place] 1.021 (1.001-1.035) Urine Protein Negative (Negative) Urine Ketones Negative (Negative) Urine Blood Negative /uL (Negative) Urine Nitrite 1+ (Negative) H Urine Bilirubin Negative (Negative) Urine Urobilinogen Normal mg/dL (Negative) Urine Leukocyte Esterase Negative /uL (Negative) Urine RBC <1 /hpf (0 - 4) Urine Microscopic WBC < 1 /HPF (0-5) Urine Squamous Epithelial Cells Few /hpf (<5) Urine Bacteria Few /hpf (None Seen) H Urine Yeast (Budding) Occasional /hpf (None Urine Glucose Normal mg/dL (Normal) Labs and/or images reviewed: Labs reviewed by me, Image(s) reviewed by me Assessment/Plan Assessment/Plan Severe symptomatic anemia hemoglobin 6.2 status post 1 unit RBC transfused, improved to 6.9, we will transfuse one more unit, GI consult for Acute hypoxic respiratory failure: Oxygen by nasal cannula Acute asthma exacerbation: Albuterol Atrovent Solu-Medrol Acute generalized weakness Chronic anemia Arthritis Chronic kidney disease GERD Hypertension Hyperlipidemia Hypothyroidism Lymphedema Morbid obesity DVT ruled out Time spent 70 minutes Advanced care planning time 20 mts Patient is full code Plan discussed with: Patient Date of Service: Nov 13, 2024 Billing Provider: TANO FAJARDO MD Common Visit Codes: [id number] CARE 30-74 MIN TANO FAJARDO MD Nov 13, 2024 13:53
[2024-11-13] MEDS: HYDROcodone-ACET 5/325MG TAB PO PRN (18:10)
[2024-11-13] MEDS: ATORVASTATIN 20 MG TAB PO SCH (21:33)
[2024-11-14] VITALS (12 sets, daily range): BP systolic 101–138; BP diastolic 53–68; PULSE 59–89; RESP 17–20; TEMP 97.8–98.8; O2SAT 90–98
[2024-11-14] MEDS: ACETAMINOPHEN 325 MG TAB PO PRN (04:38)
[2024-11-14 06:12] LABS: Hematocrit 26.1 % (36.0-46.0); Hemoglobin 7.7 g/dL (12.2-16.2); Mean Corpuscular Hemoglobin 21.6 pg (28.0-32.0); Mean Corpuscular Volume 72.8 fL (80.0-100.0); Nucleated Red Blood Cells % 0.9 %
[2024-11-14 06:24] LABS: Alanine Aminotransferase 13 U/L (7-40); Albumin 3.1 g/dL (3.2-4.8); Alkaline Phosphatase 99 U/L (46-116); Anion Gap 8 (5-15); BUN/Creatinine Ratio 32.0 (10.0-20.0); Bilirubin, Total 0.3 mg/dL (0.2-1.0); Blood Urea Nitrogen 31 mg/dL (9-23); Calcium 8.9 mg/dL (8.7-10.4); Carbon Dioxide 24 mmol/L (20-31); Chloride 111 mmol/L (98-107); Glucose 129 mg/dL (74-106); Potassium 5.3 mmol/L (3.5-5.1); Sodium 143 mmol/L (136-145); Total Protein 5.2 g/dL (5.7-8.2)
--- NOTE | 2024-11-14 09:45 | DVHSR ---
APPROVED REPORT EXAM: Two-dimensional and M-mode echocardiogram with Doppler and color Doppler. Blood Pressure: 118/45 mmHg INDICATION CHF exacerbation, unspecified RISK FACTORS Obesity: Height: 5'5", Weight: 360 DIMENSIONS LVDd5.1 (3.8-5.7cm)LA (2D)4.3 (1.9-4.0cm)Aortic Root3.1 (2.0-3.7cm) LVDs3.1 (2.5-4.0cm)LA (MM) (1.9-4.0cm)Aortic Cusp Exc1.9 (1.5-2.0cm) EF (%) 60.0 (55-70%)Rt. Atrium5.1 (1.9-4.0cm)Asc. Aorta cm IVSd1.0 (0.7-1.1cm)RV (D)5.5 (1.8-2.4cm) PWd1.1 (0.7-1.1cm) Mitral Valve MitralMitral Stenosis E wave1.57m/sMV Mean GR.mmHg A wave1.09m/sMV Peak GR.mmHg E/A ratio1.42D MVAcm2 DECEL [id number] 1/2 [place] Aortic Valve Aortic ValveAortic Stenosis V11.26m/[place] Mean GR.5mmHg V21.67m/[place] Peak GR.11mmHg LVOT Diameter2.1 (1.8-2.4cm)Doppler AVA2.61cm2 Pulmonic Valve V21.16m/s Tricuspid Valve TR Velocity3.83m/s [id number] Conclusion lvef 60 % moderate LVH normal rv function no severe valve abnormalities noted biatrial enlargement
--- NOTE | 2024-11-14 11:34 | DVHPN2 ---
Reviewed: Care Plan, H&P, Labs, Medications, Previous Orders, Radiology Changes from previous H/P or p: No Changes Eyes: No Pain, No Vision change, No Conjunctivae inflammation, No Eyelid inflammation, No Other, No Redness ENT: No Ear pain, No Ear discharge, No Nose pain, No Nose discharge, No Nose congestion, No Mouth pain, No Mouth swelling, No Throat pain, No Throat swelling, No Other Cardiovascular: No Chest Pain, No Palpitations, No Orthopnea, No Paroxysmal Noc. Dyspnea, No Edema, No Lt Headedness, No Other Respiratory: Cough; No Dry; Shortness of breath, SOB with excertion, Wheezing; No Hemoptysis, No Pleuritic Pain, No Sputum; Other (SOB at rest) Gastrointestinal: No Nausea, No Vomiting, No Abdominal Pain, No Diarrhea, No Constipation, No Melena, No Hematochezia, No Other Genitourinary: No Dysuria, No Frequency, No Incontinence, No Hematuria, No Retention, No Other Musculoskeletal: No other, No neck pain, No shoulder pain, No arm pain, No back pain, No hand pain, No leg pain, No foot pain Skin: No Rash, No Lesions, No Jaundice, No Bruising, No Other Objective Vitals Vital Signs Date Time Temp Pulse Resp B/P (MAP) Pulse Ox O2 Delivery O2 Flow Rate FiO2 11/14/24 09:00 97.8 66 18 117/63 (81) 92 97.8 11/14/24 08:00 Nasal Cannula* 2 28 Intake/Output Intake and Output 11/14/24 07:00 Intake Total 1750 ml Output Total 1320 ml Balance 430 ml Intake Oral 950 ml IV Total 150 ml Blood Product 650 ml Output Urine Total 1320 ml Medications Current Medications Medications Dose Ordered Sig/Winifred Route Start Time Stop Time Status Last Admin Dose Admin Atorvastatin Calcium 20 mg HS PO 11/13/24 22:00 11/13/24 21:33 20 MG Methylprednisolone Sodium Succinate 40 mg Q8HR IV 11/13/24 06:00 11/14/24 05:21 40 MG Famotidine 20 mg Q12HR IV 11/13/24 10:00 11/14/24 09:44 20 MG Levothyroxine Sodium 25 mcg QAM@0600 PO 11/13/24 06:00 11/14/24 05:21 25 MCG Albuterol 2.5 mg Q4HPRN PRN NEB 11/13/24 05:45 Ipratropium [place] 0.5 mg Q4HPRN PRN NEB 11/13/24 05:45 Sodium Chloride 10 ml Q8HR IV 11/13/24 06:00 11/14/24 05:26 10 ML Acetaminophen/ Hydrocodone Bitart 1 tab Q4HP PRN PO 11/13/24 05:45 11/14/24 09:45 1 TAB Ondansetron HCl 4 mg Q4HP PRN IV 11/13/24 05:45 Docusate Sodium 100 mg BIDPRN PRN PO 11/13/24 05:45 Acetaminophen 650 mg Q6HP PRN PO 11/13/24 05:45 11/14/24 04:38 650 MG Nitroglycerin 0.4 mg Q5MINP PRN SL 11/13/24 05:45 Morphine Sulfate 2 mg Q30M PRN IV 11/13/24 05:45 Aspirin 81 mg DAILY PO 11/13/24 10:00 11/14/24 09:45 81 MG Laboratory Results Laboratory Tests 11/14/24 04:16 Chemistry Test 11/14/24 04:16 Albumin 3.1 g/dL (3.2-4.8) L Calcium Level 8.9 mg/dL (8.7-10.4) Total Protein 5.2 g/dL (5.7-8.2) L LFT Test 11/14/24 04:16 Alanine Aminotransferase (ALT) 13 U/L (7-40) Alkaline Phosphatase 99 U/L (46-116) Aspartate Amino Transferase (AST) 20 U/L (13-40) Total Bilirubin 0.3 mg/dL (0.2-1.0) Urinalysis Test 11/13/24 04:20 Urine Color Light-yellow (Yellow) Urine Clarity Clear (Clear) Urine pH 5.5 (5.0-9.0) Urine Specific [place] 1.021 (1.001-1.035) Urine Protein Negative (Negative) Urine Ketones Negative (Negative) Urine Blood Negative /uL (Negative) Urine Nitrite 1+ (Negative) H Urine Bilirubin Negative (Negative) Urine Urobilinogen Normal mg/dL (Negative) Urine Leukocyte Esterase Negative /uL (Negative) Urine RBC <1 /hpf (0 - 4) Urine Microscopic WBC < 1 /HPF (0-5) Urine Squamous Epithelial Cells Few /hpf (<5) Urine Bacteria Few /hpf (None Seen) H Urine Yeast (Budding) Occasional /hpf (None Urine Glucose Normal mg/dL (Normal) Labs and/or images reviewed: Labs reviewed by me, Image(s) reviewed by me Assessment/Plan Assessment/Plan Severe symptomatic anemia hemoglobin 6.2 improved to 7.7 after 2 units RBC transfusion, GI consult for Dr. Wade to rule out GI causes of anemia Acute hypoxic respiratory failure: Oxygen by nasal cannula Acute asthma exacerbation: Albuterol Atrovent Solu-Medrol Acute COPD exacerbation: Consult for Dr. Duque Acute generalized weakness Chronic anemia Arthritis Chronic kidney disease GERD Hypertension Hyperlipidemia Hypothyroidism Lymphedema Morbid obesity History of gastric bypass 2002 Hiatal hernia repair 2003 History of smoking for 20 years quit in 1998 Previous hospitalizations in [facility] and [facility] History of bilateral inguinal hernia Obstructive Sleep apnea on CPAP History of cholecystectomy DVT ruled out Time spent 70 minutes Patient is full code Plan discussed with: Patient My Orders Orders - TANO FAJARDO MD Procedure Category Date Status Time Vital Signs [facility] 11/13/24 In Process 14:14 Date of Service: Nov 14, 2024 Billing Provider: TANO FAJARDO MD Common Visit Codes: [id number] CARE 30-74 MIN ATNO FAJARDO MD Nov 14, 2024 11:34
[2024-11-14] MEDS: SODIUM ZIRCONIUM CYCL 10 GM PAK PO ONE (11:55)
--- NOTE | 2024-11-14 14:25 | DVHINCON2 ---
Date of service: Nov 14, [address] Doss Reason for Consultation Anemia lymphedema obesity status post gastric bypass History of Present Illness This 68-year-old female who is morbidly obese admitted with the complaints of weakness tiredness and phos found to be anemic patient was short of breath. Patient was found to have a low hemoglobin of 6.2 No history of any GI bleeding no nausea vomiting occasional heartburn no diarrhea no rectal bleeding no history of any ulcers or colitis Had colonoscopy a few years ago he had some polyps never had an EGD after the gastric bypass in 2001 Past Medical History GERD hyperlipidemia hypertension thyroid problems lymphedema Past Surgical History Hysterectomy cholecystectomy gastric bypass Family History: Alzheimer's disease G8 FATHER FH: CHF (congestive heart failure) G8 MOTHER FH: throat cancer G8 FATHER Family History Noncontributory Social History Denies smoking or drinking Allergies: Coded Allergies: Metronidazole (Verified Allergy, Unknown, 11/13/24) Penicillins (Verified Allergy, Unknown, 11/13/24) HIVES/RASH Current Medications Current Medications Medications (Trade) Dose Ordered Sig/Winifred Route PRN Reason Start Time Stop Time Status Last Admin Atorvastatin Calcium (Lipitor) 20 mg HS PO 11/13/24 22:00 11/13/24 21:33 Guaifenesin (Robitussin Plain Liquid) 200 mg Q4HP PRN PO FOR COUGH 11/14/24 13:15 Albuterol (Ventolin Medneb) 2.5 mg Q6HP NEB 11/14/24 18:00 Ipratropium [place] (Atrovent Medneb) 0.5 mg Q6HP NEB 11/14/24 18:00 Review of Systems Unremarkable Vital Signs Vital Signs Date Time Temp Pulse Resp B/P (MAP) Pulse Ox O2 Delivery O2 Flow Rate FiO2 11/14/24 09:00 97.8 66 18 117/63 (81) 92 97.8 11/14/24 08:00 Nasal Cannula* 2 28 Physical Exam Morbidly obese female in no acute distress but chronically ill looking Vitals stable lungs clear Vascular unremarkable Abdomen is soft markedly obese with edema of the abdominal wall and severe lymphedema of the legs No rigidity no guarding bowel sounds normal no mass Extremities showed marked lymphedema Labs/Diagnostic Data Labs Test 11/14/24 04:16 11/13/24 08:00 11/13/24 04:20 11/13/24 01:04 Range/Units White Blood Count 3.9 #L 4.4-10.8 10^3/uL Red Blood Count 3.59 L 4.0-5.20 10^6/uL Hemoglobin 7.7 L 12.2-16.2 g/dL Hematocrit 26.1 L 36.0-46.0 % Mean Corpuscular Volume 72.8 #L 80.0-100.0 fL Mean Corpuscular Hemoglobin 21.6 L 28.0-32.0 pg Mean Corpuscular Hemoglobin Concent 29.7 L 32.0-36.0 g/dL Red Cell Distribution Width 20.7 H 11.8-14.3 % Platelet Count 274 140-450 10^3/uL Mean Platelet Volume 8.6 6.9-10.8 fL Neutrophils (%) (Auto) 80.1 H 37.0-80.0 % Lymphocytes (%) (Auto) 15.4 10.0-50.0 % Monocytes (%) (Auto) 4.5 0.0-12.0 % Eosinophils (%) (Auto) 0.0 0.0-7.0 % Basophils (%) (Auto) 0.0 0.0-2.0 % Neutrophils # (Auto) 3.1 1.6-8.6 10 ^3/uL Lymphocytes # (Auto) 0.6 0.4-5.4 10 ^3/uL Monocytes # (Auto) 0.2 0-1.3 10 ^3/uL Eosinophils # (Auto) 0 0-0.8 10 ^3/uL Basophils # (Auto) 0 0-0.2 10 ^3/uL Nucleated Red Blood Cells 0.9 % Sodium Level 143 136-145 mmol/L Potassium Level 5.3 H 3.5-5.1 mmol/L Chloride Level 111 H 98-107 mmol/L Carbon Dioxide Level 24 20-31 mmol/L Anion Gap 8 5-15 Blood Urea Nitrogen 31 H 9-23 mg/dL Creatinine 0.97 0.550-1.02 mg/dL Glomerular Filtration Rate Calc 65 >90 mL/min BUN/Creatinine Ratio 32.0 H 10.0-20.0 Serum Glucose 129 H 74-106 mg/dL Calcium Level 8.9 8.7-10.4 mg/dL Total Bilirubin 0.3 0.2-1.0 mg/dL Aspartate Amino Transferase (AST) 20 13-40 U/L Alanine Aminotransferase (ALT) 13 7-40 U/L Alkaline Phosphatase 99 46-116 U/L Total Protein 5.2 L 5.7-8.2 g/dL Albumin 3.1 L 3.2-4.8 g/dL Thyroid Stimulating Hormone (TSH) 2.28 0.55-4.78 uIU/mL Urine Color Light-yellow Yellow Urine Clarity Clear Clear Urine pH 5.5 5.0-9.0 Urine Specific [place] 1.021 1.001-1.035 Urine Protein Negative Negative Urine Ketones Negative Negative Urine Blood Negative Negative /uL Urine Nitrite 1+ H Negative Urine Bilirubin Negative Negative Urine Urobilinogen Normal Negative mg/dL Urine Leukocyte Esterase Negative Negative /uL Urine RBC <1 0 - 4 /hpf Urine Microscopic WBC < 1 0-5 /HPF Urine Squamous Epithelial Cells Few <5 /hpf Urine Bacteria Few H None Seen /hpf Urine Yeast (Budding) Occasional None Seen /hpf Urine Glucose Normal Normal mg/dL Troponin I High Sensitivity < 3 L </=34 ng/L Test 11/13/24 00:10 Range/Units Platelet Estimate Adequate Hypochromasia (manual) Moderate Anisocytosis (manual) Slight Microcytosis Slight Stomatocytes Few B-Type Natriuretic Peptide 238.74 0-100 pg/mL Assessment 63-year-old with morbid obesity status post gastric bypass now presenting with complaints of severe weakness tiredness and anemia no gross GI bleeding hemoglobin was found to be 6.2 after transfusion is 7.7 now albumin is extremely low liver functions are normal abdomen is markedly obese the severe lymphedema Possibility of anemia from chronic chronic malabsorption after gastric bypass is a possibility Anastomotic area ulcers or other gastritis or other upper GI pathology also can not be Lower GI pathology also asked to be ruled out especially if anemia persist Etiology of lymphedema is unclear whether it is partly from hypoalbuminemia or any obstruction from other pathology can not be excluded Plan/Recommendation Follow hemoglobin closely Stool for occult blood CT scan of the chest abdomen and pelvis oral and IV contrast to ensure there was no pathology to account for the severe lymphedema or anemia May need EGD and colon evaluation especially EGD as depending upon the stool results as well as the CT results Thank you Dr. Jones Plan discussed with: Patient SAMUEL JONES MD Nov 14, 2024 14:24
[2024-11-14] MEDS: IPRATROPIUM BROM 0.5 MG/2.5ML INH SOL NEB SCH (18:55)
[2024-11-14] MEDS: ALBUTEROL SULF 2.5 MG/0.5ML(0.5%) NEB SOLN NEB SCH (18:55)
[2024-11-14] MEDS: DOCUSATE SOD 100 MG CAP PO PRN (21:52)
--- NOTE | 2024-11-14 21:55 | DVHINCON2 ---
Date of service: Nov 14, 2024 Referring Physician GLASS INSERTER [facility] LUNG OLEAN Reason for Consultation Acute hypoxic respiratory failure, asthma exacerbation, pulmonary edema and atelectasis. History of Present Illness A 64-year-old woman, morbidly obese with multiple past medical history including asthma, arthritis, anemia, thyroid disease, and hypertension who presented to the ED on 11/13/24 with complaint of shortness of breath. Patient reported shortness of breaths associated with generalized weakness, dry cough, wheezing, getting worse that prompted this visit. She states she has used her home nebulizer and inhaler without relief. Patient also c/o worsening lower extremity edema for the past 3 weeks, with edema now extending to her torso and upper extremities. She has been seen by a glass block installer in the past, underwent workup including Holter monitoring, and was told there was no heart disease. Workup in the ED: Labs show WBC 5.2, hemoglobin 6.2, hematocrit 21.6, platelets 295, sodium 143, potassium 4.5, BUN 32, creatinine 0.77, glucose 100, calcium 7.8, BNP 238.74, troponin < 3, albumin 2.8, protein 4.9. Blood pressure was 100/27, heart rate 56, temperature 98.1 F, O2 saturation 97% on oxygen. Chest x-ray revealing mild cardiomegaly and pulmonary vascular congestion. Patient was admitted for further care; and pulmonary consultation is requested for evaluation and management of acute hypoxic respiratory failure, asthma exacerbation, pulmonary edema and atelectasis. Review of Systems: 14-point review of systems negative unless otherwise noted above. Past Medical History Asthma, CKD, GERD, High Lipids, HTN, Hypothyroidism, Anemia, Arthritis, Lymphedema, Morbid obesity Past Surgical History Cholecystectomy, Hysterectomy, Gastric bypass Medications: Reviewed. Allergies: Metronidazole. Family History: Alzheimer's disease, CHF, throat cancer. Social History: Nonsmoker. No alcohol or illicit drug use. Family History: Alzheimer's disease G8 FATHER FH: CHF (congestive heart failure) G8 MOTHER FH: throat cancer G8 FATHER Allergies: Coded Allergies: Metronidazole (Verified Allergy, Unknown, 11/13/24) Penicillins (Verified Allergy, Unknown, 11/13/24) HIVES/RASH Home Meds Active Scripts Bumetanide (Bumetanide) 2 Mg Tab, 0.5 TAB PO BID for 30 Days, #30 TAB 0 Refills Prov:ALI,NORMA RESIDENT 11/16/24 Current Medications Current Medications Medications (Trade) Dose Ordered Sig/Winifred Route PRN Reason Start Time Stop Time Status Last Admin Atorvastatin Calcium (Lipitor) 20 mg HS PO 11/13/24 22:00 11/14/24 21:41 Guaifenesin (Robitussin Plain Liquid) 200 mg Q4HP PRN PO FOR COUGH 11/14/24 13:15 11/14/24 14:20 Albuterol (Ventolin Medneb) 2.5 mg Q6HP NEB 11/14/24 18:00 11/14/24 18:55 Ipratropium [place] (Atrovent Medneb) 0.5 mg Q6HP NEB 11/14/24 18:00 11/14/24 18:55 Vital Signs Vital Signs Date Time Temp Pulse Resp B/P (MAP) Pulse Ox O2 Delivery O2 Flow Rate FiO2 11/14/24 21:00 98.3 89 18 127/60 (82) 95 98.3 11/14/24 18:56 Nasal Cannula* 2 28 Physical Exam Gen.: Patient lying in bed in no apparent distress. On supplemental oxygen. Head: Normocephalic, atraumatic. Eyes: EOMI/PERRLA. Ears: Normal hearing. Normal anatomy. Neck/trachea: Trachea midline, supple. Nose: Normal external anatomy. Mouth: Moist mucous membranes. Chest: Decreased air entry bilaterally. No wheezing or rhonchi. Cardiovascular: Positive S1, positive S2. Regular rate and rhythm. Abdomen: Positive bowel sounds in all 4 quadrants. Soft, non-tender, non- distended. : Deferred. Rectal: Deferred. Skin: Warm, dry. Intact. Extremities: 2+ radial pulses bilaterally. No lower extremity edema. Neuro: Awake, alert, oriented x3. No gross motor or sensory deficits. Cranial nerves II through XII intact. Gait not assessed. Labs/Diagnostic Data Labs Test 11/14/24 04:16 11/13/24 08:00 11/13/24 04:20 11/13/24 01:04 Range/Units White Blood Count 3.9 #L 4.4-10.8 10^3/uL Red Blood Count 3.59 L 4.0-5.20 10^6/uL Hemoglobin 7.7 L 12.2-16.2 g/dL Hematocrit 26.1 L 36.0-46.0 % Mean Corpuscular Volume 72.8 #L 80.0-100.0 fL Mean Corpuscular Hemoglobin 21.6 L 28.0-32.0 pg Mean Corpuscular Hemoglobin Concent 29.7 L 32.0-36.0 g/dL Red Cell Distribution Width 20.7 H 11.8-14.3 % Platelet Count 274 140-450 10^3/uL Mean Platelet Volume 8.6 6.9-10.8 fL Neutrophils (%) (Auto) 80.1 H 37.0-80.0 % Lymphocytes (%) (Auto) 15.4 10.0-50.0 % Monocytes (%) (Auto) 4.5 0.0-12.0 % Eosinophils (%) (Auto) 0.0 0.0-7.0 % Basophils (%) (Auto) 0.0 0.0-2.0 % Neutrophils # (Auto) 3.1 1.6-8.6 10 ^3/uL Lymphocytes # (Auto) 0.6 0.4-5.4 10 ^3/uL Monocytes # (Auto) 0.2 0-1.3 10 ^3/uL Eosinophils # (Auto) 0 0-0.8 10 ^3/uL Basophils # (Auto) 0 0-0.2 10 ^3/uL Nucleated Red Blood Cells 0.9 % Sodium Level 143 136-145 mmol/L Potassium Level 5.3 H 3.5-5.1 mmol/L Chloride Level 111 H 98-107 mmol/L Carbon Dioxide Level 24 20-31 mmol/L Anion Gap 8 5-15 Blood Urea Nitrogen 31 H 9-23 mg/dL Creatinine 0.97 0.550-1.02 mg/dL Glomerular Filtration Rate Calc 65 >90 mL/min BUN/Creatinine Ratio 32.0 H 10.0-20.0 Serum Glucose 129 H 74-106 mg/dL Calcium Level 8.9 8.7-10.4 mg/dL Total Bilirubin 0.3 0.2-1.0 mg/dL Aspartate Amino Transferase (AST) 20 13-40 U/L Alanine Aminotransferase (ALT) 13 7-40 U/L Alkaline Phosphatase 99 46-116 U/L Total Protein 5.2 L 5.7-8.2 g/dL Albumin 3.1 L 3.2-4.8 g/dL Thyroid Stimulating Hormone (TSH) 2.28 0.55-4.78 uIU/mL Urine Color Light-yellow Yellow Urine Clarity Clear Clear Urine pH 5.5 5.0-9.0 Urine Specific [place] 1.021 1.001-1.035 Urine Protein Negative Negative Urine Ketones Negative Negative Urine Blood Negative Negative /uL Urine Nitrite 1+ H Negative Urine Bilirubin Negative Negative Urine Urobilinogen Normal Negative mg/dL Urine Leukocyte Esterase Negative Negative /uL Urine RBC <1 0 - 4 /hpf Urine Microscopic WBC < 1 0-5 /HPF Urine Squamous Epithelial Cells Few <5 /hpf Urine Bacteria Few H None Seen /hpf Urine Yeast (Budding) Occasional None Seen /hpf Urine Glucose Normal Normal mg/dL Troponin I High Sensitivity < 3 L </=34 ng/L Test 11/13/24 00:10 Range/Units Platelet Estimate Adequate Hypochromasia (manual) Moderate Anisocytosis (manual) Slight Microcytosis Slight Stomatocytes Few B-Type Natriuretic Peptide 238.74 0-100 pg/mL Assessment Impression: Acute hypoxic respiratory failure Dependence on supplemental oxygen Asthma exacerbation Pulmonary edema Atelectasis Anemia Super morbid obesity, BMI 68.6 Plan: Supplemental oxygen On 4 LPM -->2 LPM NC Titrate to keep O2 sats above 92%. Taper O2 as tolerated. Continue bronchodilators, q.6 hours scheduled. Continue steroids Incentive spirometry Antitussive PRN cough Monitor hemoglobin Pt received 2 units PRBC Monitor renal function. Monitor electrolytes. Supplement as necessary. Monitor ins and outs. Diet and lifestyle modifications for weight reduction Obesity complicates all care DVT prophylaxis. Prognosis: Poor given patient's multiple co-morbidities. Rest of plan per hospitalist and other consultants. Thank you, ASHLEY Díaz, for allowing me to participate in this patient's care. Further recommendations will depend on the patient's clinical course. Please do not hesitate to contact me if you have any questions or concerns. This medical document was created using an electronic medical record system with [employer] dictation system. Although these documentations are being carefully reviewed, there may still be some phonetic and typographical changes. The errors are purely typographical, due to imperfection on the software program, and do not reflect any compromise in the patient's medical care. Plan discussed with: Patient, Other (PROSPER Sorensen/ASHLEY Díaz/) SOWMYA MCDONALD MD Nov 14, 2024 21:55
[2024-11-15] VITALS (15 sets, daily range): BP systolic 110–139; BP diastolic 52–67; PULSE 65–105; RESP 14–18; TEMP 97.6–98.6; O2SAT 94–100
[2024-11-15 06:08] LABS: Hematocrit 25.8 % (36.0-46.0); Hemoglobin 7.5 g/dL (12.2-16.2); Mean Corpuscular Hemoglobin 21.3 pg (28.0-32.0); Mean Corpuscular Volume 72.9 fL (80.0-100.0); Nucleated Red Blood Cells % 0.6 %
[2024-11-15 06:30] LABS: Alanine Aminotransferase 14 U/L (7-40); Alkaline Phosphatase 95 U/L (46-116); Anion Gap 6 (5-15); BUN/Creatinine Ratio 32.6 (10.0-20.0); Carbon Dioxide 26 mmol/L (20-31); Sodium 141 mmol/L (136-145)
[2024-11-15 06:32] LABS: Albumin 3.1 g/dL (3.2-4.8); Bilirubin, Total 0.3 mg/dL (0.2-1.0); Blood Urea Nitrogen 31 mg/dL (9-23); Calcium 8.3 mg/dL (8.7-10.4); Chloride 109 mmol/L (98-107); Glucose 123 mg/dL (74-106); Potassium 5.2 mmol/L (3.5-5.1); Total Protein 5.3 g/dL (5.7-8.2)
--- NOTE | 2024-11-15 10:59 | DVHPN2 ---
Reviewed: Care Plan, H&P, Labs, Medications, Previous Orders, Radiology Changes from previous H/P or p: No Changes Eyes: No Pain, No Vision change, No Conjunctivae inflammation, No Eyelid inflammation, No Other, No Redness ENT: No Ear pain, No Ear discharge, No Nose pain, No Nose discharge, No Nose congestion, No Mouth pain, No Mouth swelling, No Throat pain, No Throat swelling, No Other Cardiovascular: No Chest Pain, No Palpitations, No Orthopnea, No Paroxysmal Noc. Dyspnea, No Edema, No Lt Headedness, No Other Respiratory: Cough; No Dry; Shortness of breath, SOB with excertion, Wheezing; No Hemoptysis, No Pleuritic Pain, No Sputum; Other (SOB at rest) Gastrointestinal: No Nausea, No Vomiting, No Abdominal Pain, No Diarrhea, No Constipation, No Melena, No Hematochezia, No Other Genitourinary: No Dysuria, No Frequency, No Incontinence, No Hematuria, No Retention, No Other Musculoskeletal: No other, No neck pain, No shoulder pain, No arm pain, No back pain, No hand pain, No leg pain, No foot pain Skin: No Rash, No Lesions, No Jaundice, No Bruising, No Other Objective Vitals Vital Signs Date Time Temp Pulse Resp B/P (MAP) Pulse Ox O2 Delivery O2 Flow Rate FiO2 11/15/24 08:43 98.0 65 18 134/67 (89) 98 98.0 11/15/24 08:00 Nasal Cannula* 2 28 Intake/Output Intake and Output 11/15/24 07:00 Intake Total 2350 ml Output Total 1100 ml Balance 1250 ml Intake Oral 1800 ml Tube Feeding 550 ml Output Urine Total 1100 ml Medications Current Medications Medications Dose Ordered Sig/Winifred Route Start Time Stop Time Status Last Admin Dose Admin Atorvastatin Calcium 20 mg HS PO 11/13/24 22:00 11/14/24 21:41 20 MG Methylprednisolone Sodium Succinate 40 mg Q8HR IV 11/13/24 06:00 11/15/24 05:41 40 MG Famotidine 20 mg Q12HR IV 11/13/24 10:00 11/15/24 08:17 20 MG Levothyroxine Sodium 25 mcg QAM@0600 PO 11/13/24 06:00 11/15/24 05:41 25 MCG Albuterol 2.5 mg Q4HPRN PRN NEB 7/5/25 05:45 Ipratropium [place] 0.5 mg Q4HPRN PRN NEB 11/13/24 05:45 Sodium Chloride 10 ml Q8HR IV 11/13/24 06:00 11/15/24 05:45 10 ML Acetaminophen/ Hydrocodone Bitart 1 tab Q4HP PRN PO 11/13/24 05:45 11/14/24 09:45 1 TAB Ondansetron HCl 4 mg Q4HP PRN IV 11/13/24 05:45 Docusate Sodium 100 mg BIDPRN PRN PO 11/13/24 05:45 11/15/24 08:17 100 MG Acetaminophen 650 mg Q6HP PRN PO 11/13/24 05:45 11/15/24 05:43 650 MG Nitroglycerin 0.4 mg Q5MINP PRN SL 11/13/24 05:45 Morphine Sulfate 2 mg Q30M PRN IV 11/13/24 05:45 Aspirin 81 mg DAILY PO 11/13/24 10:00 11/15/24 08:18 81 MG Guaifenesin 200 mg Q4HP PRN PO 11/14/24 13:15 11/14/24 14:20 200 MG Albuterol 2.5 mg Q6HP NEB 11/14/24 18:00 11/15/24 00:12 2.5 MG Ipratropium [place] 0.5 mg Q6HP NEB 11/14/24 18:00 11/15/24 00:13 0.5 MG Laboratory Results Laboratory Tests 11/15/24 04:52 Chemistry Test 11/15/24 04:52 Albumin 3.1 g/dL (3.2-4.8) L Calcium Level 8.3 mg/dL (8.7-10.4) L Total Protein 5.3 g/dL (5.7-8.2) L LFT Test 11/15/24 04:52 Alanine Aminotransferase (ALT) 14 U/L (7-40) Alkaline Phosphatase 95 U/L (46-116) Aspartate Amino Transferase (AST) 18 U/L (13-40) Total Bilirubin 0.3 mg/dL (0.2-1.0) Urinalysis Test 11/13/24 04:20 Urine Color Light-yellow (Yellow) Urine Clarity Clear (Clear) Urine pH 5.5 (5.0-9.0) Urine Specific [place] 1.021 (1.001-1.035) Urine Protein Negative (Negative) Urine Ketones Negative (Negative) Urine Blood Negative /uL (Negative) Urine Nitrite 1+ (Negative) H Urine Bilirubin Negative (Negative) Urine Urobilinogen Normal mg/dL (Negative) Urine Leukocyte Esterase Negative /uL (Negative) Urine RBC <1 /hpf (0 - 4) Urine Microscopic WBC < 1 /HPF (0-5) Urine Squamous Epithelial Cells Few /hpf (<5) Urine Bacteria Few /hpf (None Seen) H Urine Yeast (Budding) Occasional /hpf (None Urine Glucose Normal mg/dL (Normal) Labs and/or images reviewed: Labs reviewed by me, Image(s) reviewed by me Assessment/Plan Assessment/Plan Severe symptomatic anemia hemoglobin 6.2 improved to 7.7 after 2 units RBC transfusion, GI consult for Dr. Wade to rule out GI causes of anemia Acute hypoxic respiratory failure: Oxygen by nasal cannula Acute asthma exacerbation: Albuterol Atrovent Solu-Medrol Acute COPD exacerbation: Consult for Dr. Duque appreciated Acute generalized weakness Chronic anemia Arthritis Chronic kidney disease GERD Hypertension Hyperlipidemia Hypothyroidism Lymphedema CT abdomen pelvis with IV contrast ordered Morbid obesity History of gastric bypass 2003 Hiatal hernia repair 2003 History of smoking for 20 years quit in 1998 Previous hospital[facility] History of bilateral inguinal hernia Obstructive Sleep apnea on CPAP History of cholecystectomy DVT ruled out Acute Hyperkalemia potassium 5.3: Consult for Warehouse Consultant Time spent 70 minutes Patient is full code Plan discussed with: Patient My Orders Orders - TANO FAJARDO MD Procedure Category Date Status Time * Gi Dvh Glove Sewer CONS 11/14/24 Transmitted 11:20 Bipap/Cpap For Sleep RT 11/14/24 Logged Apnea 11:34 *Consult CONS 11/14/24 Transmitted / 11:34 Complete Blood Count LAB 11/16/24 Verified 04:00 Complete Blood Count LAB 11/17/24 Verified 04:00 Complete Blood Count LAB 11/18/24 Verified 04:00 Complete Blood Count LAB 11/19/24 Verified 04:00 Comprehensive LAB 11/16/24 Verified Metabolic Panel 04:00 Comprehensive LAB 11/17/24 Verified Metabolic Panel 04:00 Comprehensive LAB 11/18/24 Verified Metabolic Panel 04:00 Comprehensive LAB 11/19/24 Verified Metabolic Panel 04:00 Date of Service: Nov 15, 2024 Billing Provider: TANO FAJARDO MD Common Visit Codes: [id number] INP/OBS CARE(HIGH) TANO FAJARDO MD Nov 15, 2024 10:59
[2024-11-15] MEDS: IOHEXOL 300 MG/ML 100ML BOTTLE IJ ONE (11:07)
[2024-11-15] MEDS: LACTULOSE 20Gm/30ML SOLN PO ONE (11:56)
--- NOTE | 2024-11-15 12:08 | DVH ---
Indication: Severe anemia Technique: CT axial images of the abdomen and pelvis are obtained with intravenous contrast. Coronal and sagittal reformats were obtained. Radiation Dose Information: CTDI volume is 27.62 mGy. Dose-length product is 1800.18 mGy*cm Comparison: None FINDINGS: Lung bases demonstrate atelectasis. Small bilateral pleural effusions. 1.9 cm left adrenal nodule. Spleen, pancreas unremarkable. Hepatic steatosis. Liver capsule nodular morphology. Cholecystectomy. 2.7 cm left renal cysts. 1.8 cm left renal cyst. 1.4 cm right renal cyst. Stomach partially distended. Small bowel loops are normal in caliber. Colonic diverticular disease. Moderate to large volume stool throughout the colon. No secondary signs for appendicitis. Abdominal aorta normal in caliber. Abdominal aorta normal in caliber. Bladder decompressed by Borden catheter. Soft tissue edema / anasar ca. [id number] bilateral sacroiliac degenerative joint disease. [id number] thoracolumbar dege nerative disc disease. Severe degenerate changes right hip. Distended IVC. IMPRESSION: Moderate to large volume stool within the colon most pronounced within the rectum. Soft tissue edema / anasarca. Small bilateral pleural effusions. Hepatic steatosis. Liver capsule nodular morphology may represent sequela of cirrhosis. Colonic diverticular disease. Distended IVC which can be seen with volume overload. Other findings as described.
[2024-11-15] MEDS: IPRATROPIUM BROM 0.5 MG/2.5ML INH SOL NEB PRN (14:23)
[2024-11-15] MEDS: ALBUTEROL SULF 2.5 MG/0.5ML(0.5%) NEB SOLN NEB PRN (14:23)
--- NOTE | 2024-11-15 14:59 | DVHCONRES ---
Date Seen: Nov 15, 2024 Resident Creating Document: NORMA ABERNATHY RESIDENT Referring Physician Dr. Doss History of Present Illness The patient is a 64-year-old female morbidly obese with multiple past medical history including arthritis, asthma, anemia, thyroid disease, and hypertension who presented to [facility] ED with complaint of shortness of breaths. Patient reports she has been experiencing shortness of breaths associated with generalized weakness, dry cough, wheezing, getting worse that prompted this visit. She states she has used her home nebulizer and inhaler without relief. Patient also notes worsening lower extremity edema for the past 3 weeks, with edema now extending to her torso and upper extremities. She reports she has been seen by a associate professor of literacy in the past, underwent workup including Holter monitoring, and was told there was no heart disease. Nephrology consulted for hyperkalemia Patient seen and examined at bedside. Chocolate and jello seen at bedside, patient was counseled regarding healthy diet and low-potassium diet. Family History: Alzheimer's disease G8 FATHER FH: CHF (congestive heart failure) G8 MOTHER FH: throat cancer G8 FATHER Allergies: Coded Allergies: Metronidazole (Verified Allergy, Unknown, 11/13/24) Penicillins (Verified Allergy, Unknown, 11/13/24) HIVES/RASH Current Medications Current Medications Medications (Trade) Dose Ordered Sig/Winifred Route PRN Reason Start Time Stop Time Status Last Admin Albuterol (Ventolin Medneb) 2.5 mg Q6HP [facility] 11/14/24 18:00 11/15/24 00:12 Ipratropium [place] (Atrovent Medneb) 0.5 mg Q6HP [facility] 11/14/24 18:00 11/15/24 00:13 Vital Signs Vital Signs Date Time Temp Pulse Resp B/P (MAP) Pulse Ox O2 Delivery O2 Flow Rate FiO2 11/15/24 14:32 85 14 100 11/15/24 13:00 98.6 131/52 (78) 98.6 11/15/24 08:00 Nasal Cannula* 2 28 Physical Exam Morbidly obese female patient lying in the bed, no acute distress General: Morbidly obese, pillar, mucosae are moist Cardiovascular: Regular S1 and S2. No murmurs, gallops or rubs. No JVD elevation. 3+ pedal edema Respiratory: On NC 2 L supplementation Abdomen: Soft, nontender, nondistended, normoactive bowel sounds, no rebound tenderness, no organomegaly, no masses Genitourinary: Deferred MSK/skin: Mobilizes 4 limbs. Skin is dry and warm Neurological: No motor, no sensitive deficits, normal speech. Pupils are iso coric and reactive. Psych/Mental Status: A/Ox3 Labs/Diagnostic Data Labs Test 11/15/24 04:52 11/13/24 08:00 11/13/24 04:20 11/13/24 01:04 Range/Units White Blood Count 5.5 # 4.4-10.8 10^3/uL Red Blood Count 3.54 L 4.0-5.20 10^6/uL Hemoglobin 7.5 L 12.2-16.2 g/dL Hematocrit 25.8 L 36.0-46.0 % Mean Corpuscular Volume 72.9 L 80.0-100.0 fL Mean Corpuscular Hemoglobin 21.3 L 28.0-32.0 pg Mean Corpuscular Hemoglobin Concent 29.2 L 32.0-36.0 g/dL Red Cell Distribution Width 21.4 H 11.8-14.3 % Platelet Count 254 140-450 10^3/uL Mean Platelet Volume 8.7 6.9-10.8 fL Neutrophils (%) (Auto) 85.1 H 37.0-80.0 % Lymphocytes (%) (Auto) 11.2 10.0-50.0 % Monocytes (%) (Auto) 3.7 0.0-12.0 % Eosinophils (%) (Auto) 0.0 0.0-7.0 % Basophils (%) (Auto) 0.0 0.0-2.0 % Neutrophils # (Auto) 4.7 1.6-8.6 10 ^3/uL Lymphocytes # (Auto) 0.6 0.4-5.4 10 ^3/uL Monocytes # (Auto) 0.2 0-1.3 10 ^3/uL Eosinophils # (Auto) 0 0-0.8 10 ^3/uL Basophils # (Auto) 0 0-0.2 10 ^3/uL Nucleated Red Blood Cells 0.6 % Sodium Level 141 136-145 mmol/L Potassium Level 5.2 H 3.5-5.1 mmol/L Chloride Level 109 H 98-107 mmol/L Carbon Dioxide Level 26 20-31 mmol/L Anion Gap 6 5-15 Blood Urea Nitrogen 31 H 9-23 mg/dL Creatinine 0.95 0.550-1.02 mg/dL Glomerular Filtration Rate Calc 66 >90 mL/min BUN/Creatinine Ratio 32.6 H 10.0-20.0 Serum Glucose 123 H 74-106 mg/dL Calcium Level 8.3 L 8.7-10.4 mg/dL Total Bilirubin 0.3 0.2-1.0 mg/dL Aspartate Amino Transferase (AST) 18 13-40 U/L Alanine Aminotransferase (ALT) 14 7-40 U/L Alkaline Phosphatase 95 46-116 U/L Total Protein 5.3 L 5.7-8.2 g/dL Albumin 3.1 L 3.2-4.8 g/dL Thyroid Stimulating Hormone (TSH) 2.28 0.55-4.78 uIU/mL Urine Color Light-yellow Yellow Urine Clarity Clear Clear Urine pH 5.5 5.0-9.0 Urine Specific [place] 1.021 1.001-1.035 Urine Protein Negative Negative Urine Ketones Negative Negative Urine Blood Negative Negative /uL Urine Nitrite 1+ H Negative Urine Bilirubin Negative Negative Urine Urobilinogen Normal Negative mg/dL Urine Leukocyte Esterase Negative Negative /uL Urine RBC <1 0 - 4 /hpf Urine Microscopic WBC < 1 0-5 /HPF Urine Squamous Epithelial Cells Few <5 /hpf Urine Bacteria Few H None Seen /hpf Urine Yeast (Budding) Occasional None Seen /hpf Urine Glucose Normal Normal mg/dL Troponin I High Sensitivity < 3 L </=34 ng/L Test 11/13/24 00:10 Range/Units Platelet Estimate Adequate Hypochromasia (manual) Moderate Anisocytosis (manual) Slight Microcytosis Slight Stomatocytes Few B-Type Natriuretic Peptide 238.74 0-100 pg/mL Assessment Hyperkalemia Pulmonary edema Acute hypoxic respiratory failure secondary to above Acute microcytic anemia questionable blood loss status post blood transfusion ? Liver cirrhosis Diverticulosis Small bilateral pleural effusion Morbid obesity History of gastric bypass Chest CT shows moderate to large stool volume within the colon, small bilateral pleural effusion, hepatic steatosis, liver capsule is nodular may represent cirrhosis. Plan: Bumex 2 mg IV b.i.d. started given pulmonary edema and bilateral pedal edema Lokelma 10 mg TID for 6 doses NS 500 bolus to prevent contrast induced nephropathy Low-potassium diet advised Avoid preserved and processed food high in potassium Discontinue potassium supplementation-patient takes KCl tablets at home We will continue to monitor Plan discussed with patient, at bedside in which all questions have been answered Case discussed with Dr. Franco Addendum Patient seen and examined, plan discussed with resident. Agree with above, we will follow closely Plan discussed with: Patient, Spouse NORMA ABERNATHY RESIDENT Nov 15, 2024 14:59 CY FRANCO MD Nov 15, 2024 17:48
[2024-11-15] MEDS: SODIUM ZIRCONIUM CYCL 10 GM PAK PO SCH (15:48)
[2024-11-15] MEDS: SODIUM CHLORIDE 0.9% 500 ML IV ONE (15:49)
[2024-11-15] MEDS: BUMETANIDE 2.5mg/10ml (0.25 mg/ml) INJ IV SCH (17:17)
[2024-11-15] MEDS: IPRATROPIUM BROM 0.5 MG/2.5ML INH SOL NEB SCH (19:21)
[2024-11-15] MEDS: ALBUTEROL SULF 2.5 MG/0.5ML(0.5%) NEB SOLN NEB SCH (19:21)
--- NOTE | 2024-11-15 22:33 | DVHPN2 ---
Progress Note - Dictate Date Seen: Nov 15, 2024 Medical Necessity Reason Pt with a Central, PICC or Fol: No Subjective This 68-year-old female who is morbidly obese admitted with the complaints of weakness tiredness and phos found to be anemic patient was short of breath. Patient was found to have a low hemoglobin of 6.2.bNo history of any GI bleeding no nausea vomiting occasional heartburn no diarrhea no rectal bleeding no history of any ulcers or colitis Had colonoscopy a few years ago he had some polyps never had an EGD after the gastric bypass in 2001 Patient complains of fluid retention increasing pedal edema and worsening of her lymphedema She denies any active GI bleeding at this time and she is tolerating a diet Patient usually tends to be constipated and has a history of anemia related to gastric bypass, currently not taking any vitamin supplements vital signs Vital Sign Date Time Temp Pulse Resp B/P (MAP) Pulse Ox O2 Delivery O2 Flow Rate FiO2 11/15/24 21:52 110/58 11/15/24 21:00 98.4 94 17 96 98.4 11/15/24 19:21 Nasal Cannula 2.0 11/15/24 19:21 28 Total Intake and Output 11/14/24 11/14/24 11/15/24 15:00 23:00 07:00 Intake Total 950 ml 1400 ml Output Total 300 ml 800 ml Balance 650 ml 600 ml medications Current Medications Medications Dose Ordered Sig/Winifred Route Start Time Stop Time Status Last Admin Dose Admin Atorvastatin Calcium 20 mg HS PO 11/13/24 22:00 11/15/24 21:53 20 MG Methylprednisolone Sodium Succinate 40 mg Q8HR IV 11/13/24 06:00 11/15/24 21:53 40 MG Famotidine 20 mg Q12HR IV 11/13/24 10:00 11/15/24 21:53 20 MG Levothyroxine Sodium 25 mcg QAM@0600 PO 11/13/24 06:00 11/15/24 05:41 25 MCG Albuterol 2.5 mg Q4HPRN PRN NEB 11/13/24 05:45 11/15/24 14:23 2.5 MG Ipratropium [place] 0.5 mg Q4HPRN PRN NEB 11/13/24 05:45 11/15/24 14:23 0.5 MG Sodium Chloride 10 ml Q8HR IV 11/13/24 06:00 11/15/24 21:53 10 ML Acetaminophen/ Hydrocodone Bitart 1 tab Q4HP PRN PO 11/13/24 05:45 11/14/24 09:45 1 TAB Ondansetron HCl 4 mg Q4HP PRN IV 11/13/24 05:45 Docusate Sodium 100 mg BIDPRN PRN PO 11/13/24 05:45 11/15/24 08:17 100 MG Acetaminophen 650 mg Q6HP PRN PO 11/13/24 05:45 11/15/24 14:09 650 MG Nitroglycerin 0.4 mg Q5MINP PRN SL 11/13/24 05:45 Morphine Sulfate 2 mg Q30M PRN IV 11/13/24 05:45 Aspirin 81 mg DAILY PO 11/13/24 10:00 11/15/24 08:18 81 MG Guaifenesin 200 mg Q4HP PRN PO 11/14/24 13:15 11/14/24 14:20 200 MG Zirconium Oxide 10 gm TID PO 11/15/24 14:45 11/17/24 00:00 11/15/24 21:53 10 GM Bumetanide 2 mg BID IV 11/15/24 14:45 11/15/24 21:52 2 MG Albuterol 2.5 mg Q6HR NEB 11/15/24 18:00 11/15/24 19:21 2.5 MG Ipratropium [place] 0.5 mg Q6HR NEB 11/15/24 18:00 11/15/24 19:21 0.5 MG objective Morbidly obese female patient lying in the bed, no acute distress General: Morbidly obese, mild pallor, mucosae are moist Cardiovascular: Regular S1 and S2. No murmurs, gallops or rubs. No JVD elevation. 3+ pedal edema Respiratory: On NC 2 L supplementation Abdomen: Soft, nontender, nondistended, obese normoactive bowel sounds, no rebound tenderness, no organomegaly, no masses MSK/skin: Mobilizes 4 limbs. Skin is dry and warm; extensive lymphedema laboratory and microbiology Laboratory Tests 11/15/24 04:52 Test 11/15/24 04:52 Range/Units Serum Glucose 123 H 74-106 mg/dL CT SCAN ABD PELVIS IMPRESSION: Moderate to large volume stool within the colon most pronounced within the rectum. Soft tissue edema / anasarca. Small bilateral pleural effusions. Hepatic steatosis. Liver capsule nodular morphology may represent sequela of cirrhosis. Colonic diverticular disease. Distended IVC which can be seen with volume overload. Problems(with codes): (1) Lymphedema (2) Fluid overload (3) Generalized weakness (4) Symptomatic anemia Prognosis Plan Continue conservative treatment from GI point of view IV Protonix 40 mg daily ; Clear liquid diet advance as tolerated Transfused 1 unit PRBC if hemoglobin is less than seven IV diuresis and IV albumin to help manage the fluid overload, consider nephrology consult Patient is medically not stable for an endoscopic examination at this time Plan discussed with: Patient, Other (Dr Wade) CC Plasma Assessment Blood Product Administration S: [id number] YOLANDA BURKS MD Nov 15, 2024 22:33
--- NOTE | 2024-11-15 23:07 | DVHPN2 ---
Progress Note - Dictate Date Seen: Nov 15, 2024 Medical Necessity Reason Pt with a Central, PICC or Fol: Yes The following are medically ne: Patterson Catheter Reason for patterson catheter: Strict I&O Subjective Patient seen and examined at bedside. Remains on supplemental oxygen Overnight events reviewed. [facility] vital signs Vital Sign Date Time Temp Pulse Resp B/P (MAP) Pulse Ox O2 Delivery O2 Flow Rate FiO2 11/15/24 21:52 110/58 11/15/24 21:00 98.4 94 17 96 98.4 11/15/24 19:21 Nasal Cannula 2.0 11/15/24 19:21 28 Total Intake and Output 11/14/24 11/14/24 11/15/24 15:00 23:00 07:00 Intake Total 950 ml 1400 ml Output Total 300 ml 800 ml Balance 650 ml 600 ml medications Current Medications Medications Dose Ordered Sig/Winifred Route Start Time Stop Time Status Last Admin Dose Admin Atorvastatin Calcium 20 mg HS PO 11/13/24 22:00 11/15/24 21:53 20 MG Methylprednisolone Sodium Succinate 40 mg Q8HR IV 11/13/24 06:00 11/15/24 21:53 40 MG Levothyroxine Sodium 25 mcg QAM@0600 PO 11/13/24 06:00 11/15/24 05:41 25 MCG Albuterol 2.5 mg Q4HPRN PRN NEB 11/13/24 05:45 11/15/24 14:23 2.5 MG Ipratropium [place] 0.5 mg Q4HPRN PRN NEB 11/13/24 05:45 11/15/24 14:23 0.5 MG Sodium Chloride 10 ml Q8HR IV 11/13/24 06:00 11/15/24 21:53 10 ML Acetaminophen/ Hydrocodone Bitart 1 tab Q4HP PRN PO 11/13/24 05:45 11/14/24 09:45 1 TAB Ondansetron HCl 4 mg Q4HP PRN IV 11/13/24 05:45 Docusate Sodium 100 mg BIDPRN PRN PO 11/13/24 05:45 11/15/24 08:17 100 MG Acetaminophen 650 mg Q6HP PRN PO 11/13/24 05:45 11/15/24 22:29 650 MG Nitroglycerin 0.4 mg Q5MINP PRN SL 11/13/24 05:45 Morphine Sulfate 2 mg Q30M PRN IV 11/13/24 05:45 Guaifenesin 200 mg Q4HP PRN PO 11/14/24 13:15 11/14/24 14:20 200 MG Zirconium Oxide 10 gm TID PO 11/15/24 14:45 11/17/24 00:00 11/15/24 21:53 10 GM Bumetanide 2 mg BID IV 11/15/24 14:45 11/15/24 21:52 2 MG Albuterol 2.5 mg Q6HR NEB 11/15/24 18:00 11/15/24 19:21 2.5 MG Ipratropium [place] 0.5 mg Q6HR NEB 11/15/24 18:00 11/15/24 19:21 0.5 MG Polyethylene Glycol 17 gm DAILY PO 11/16/24 10:00 Pantoprazole Sodium 40 mg BID@0600,1700 PO 11/16/24 06:00 objective Gen.: Patient lying in bed in no apparent distress. On supplemental oxygen. Head: Normocephalic, atraumatic. Eyes: EOMI/PERRLA. Ears: Normal hearing. Normal anatomy. Neck/trachea: Trachea midline, supple. Nose: Normal external anatomy. Mouth: Moist mucous membranes. Chest: Decreased air entry bilaterally. No wheezing or rhonchi. Cardiovascular: Positive S1, positive S2. Regular rate and rhythm. Abdomen: Positive bowel sounds in all 4 quadrants. Soft, non-tender, non- distended. : Deferred. Rectal: Deferred. Skin: Warm, dry. Intact. Extremities: 2+ radial pulses bilaterally. No lower extremity edema. Neuro: Awake, alert, oriented x3. No gross motor or sensory deficits. Cranial nerves II through XII intact. Gait not assessed. laboratory and microbiology Laboratory Tests 11/15/24 04:52 Test 11/15/24 04:52 Range/Units Serum Glucose 123 H 74-106 mg/dL Assessment/Plan Impression: Acute hypoxic respiratory failure Dependence on supplemental oxygen Asthma exacerbation Pulmonary edema Atelectasis Anemia Super morbid obesity, BMI 68.6 Events: Remains on supplemental oxygen, 2 LPM NC Taper O2 as tolerated Improved O2 requirements. Continue bronchodilators Continue IV steroids - taper as tolerated Antitussive PRN cough. Incentive spirometry CT abdomen-pelvis reviewed; Small bilateral pleural effusions. Moderate to large volume stool within the colon most pronounced within the rectum. Colonic diverticular disease. Soft tissue edema/anasarca. Hepatic steatosis. Liver capsule nodular morphology, may represent sequela of cirrhosis. Distended IVC which can be seen with volume overload. Diurese with Bumex Monitor renal function. Monitor electrolytes. Supplement as necessary. Monitor ins and outs. Pepcid for GI ppx Monitor hemoglobin Pt received 2 units PRBC yesterday Labs and imaging reviewed. Rest of plan as noted below. Plan: Supplemental oxygen Titrate to keep O2 sats above 92%. Continue bronchodilators, q.6 hours scheduled. Continue steroids Incentive spirometry Antitussive PRN cough Monitor hemoglobin Diurese to euvolemia Monitor renal function. Monitor electrolytes. Supplement as necessary. Monitor ins and outs. Diet and lifestyle modifications for weight reduction Obesity complicates all care GI/DVT prophylaxis. Prognosis: Poor given patient's multiple co-morbidities. Rest of plan per hospitalist and other consultants. Thank you, ASHLEY Díaz, for allowing me to participate in this patient's care. Further recommendations will depend on the patient's clinical course. Please do not hesitate to contact me if you have any questions or concerns. This medical document was created using an electronic medical record system with [employer] dictation system. Although these documentations are being carefully reviewed, there may still be some phonetic and typographical changes. The errors are purely typographical, due to imperfection on the software program, and do not reflect any compromise in the patient's medical care. Plan discussed with: Patient, Other (PROSPER Cruz) CC Plasma Assessment Blood Product Administration S: [id number] SOWMYA MCDONALD MD Nov 15, 2024 23:07
[2024-11-15] MEDS: MELATONIN 5 MG TAB PO ONE (23:53)
[2024-11-16] VITALS (17 sets, daily range): BP systolic 115–146; BP diastolic 52–75; PULSE 69–89; RESP 14–18; TEMP 97.3–98.6; O2SAT 94–100
[2024-11-16 05:43] LABS: Hemoglobin 7.3 g/dL (12.2-16.2); Nucleated Red Blood Cells % 0.4 %
[2024-11-16 05:50] LABS: Hematocrit 24.3 % (36.0-46.0); Mean Corpuscular Hemoglobin 21.4 pg (28.0-32.0); Mean Corpuscular Volume 71.0 fL (80.0-100.0)
[2024-11-16] MEDS: PANTOPRAZOLE 40 MG TAB PO SCH (05:56)
[2024-11-16 06:11] LABS: Alanine Aminotransferase 16 U/L (7-40); Alkaline Phosphatase 83 U/L (46-116); Anion Gap 8 (5-15); BUN/Creatinine Ratio 31.9 (10.0-20.0); Calcium 8.8 mg/dL (8.7-10.4); Carbon Dioxide 27 mmol/L (20-31); Chloride 106 mmol/L (98-107); Potassium 4.4 mmol/L (3.5-5.1); Sodium 141 mmol/L (136-145)
[2024-11-16 06:12] LABS: Albumin 3.0 g/dL (3.2-4.8); Blood Urea Nitrogen 30 mg/dL (9-23); Glucose 121 mg/dL (74-106); Total Protein 4.9 g/dL (5.7-8.2)
[2024-11-16 06:36] LABS: Bilirubin, Total 0.3 mg/dL (0.2-1.0)
[2024-11-16] MEDS: POLYETHYLENE GLYCOL 17 GM PWDR PO SCH (09:07)
--- NOTE | 2024-11-16 11:52 | DVHPN2 ---
Reviewed: Care Plan, H&P, Labs, Medications, Previous Orders, Radiology Changes from previous H/P or p: No Changes Eyes: No Pain, No Vision change, No Conjunctivae inflammation, No Eyelid inflammation, No Other, No Redness ENT: No Ear pain, No Ear discharge, No Nose pain, No Nose discharge, No Nose congestion, No Mouth pain, No Mouth swelling, No Throat pain, No Throat swelling, No Other Cardiovascular: No Chest Pain, No Palpitations, No Orthopnea, No Paroxysmal Noc. Dyspnea, No Edema, No Lt Headedness, No Other Respiratory: Cough; No Dry; Shortness of breath, SOB with excertion, Wheezing; No Hemoptysis, No Pleuritic Pain, No Sputum; Other (SOB at rest) Gastrointestinal: No Nausea, No Vomiting, No Abdominal Pain, No Diarrhea, No Constipation, No Melena, No Hematochezia, No Other Genitourinary: No Dysuria, No Frequency, No Incontinence, No Hematuria, No Retention, No Other Musculoskeletal: No other, No neck pain, No shoulder pain, No arm pain, No back pain, No hand pain, No leg pain, No foot pain Skin: No Rash, No Lesions, No Jaundice, No Bruising, No Other Objective Vitals Vital Signs Date Time Temp Pulse Resp B/P (MAP) Pulse Ox O2 Delivery O2 Flow Rate FiO2 11/16/24 09:32 140/75 11/16/24 08:32 98.2 71 16 97 98.2 11/16/24 08:00 Nasal Cannula* 2 28 Intake/Output Intake and Output 11/16/24 07:00 Intake Total 1200 ml Output Total 4850 ml Balance -3650 ml Intake Oral 1200 ml Output Urine Total 4850 ml # Bowel Movements 3 Medications Current Medications Medications Dose Ordered Sig/Winifred Route Start Time Stop Time Status Last Admin Dose Admin Atorvastatin Calcium 20 mg HS PO 11/13/24 22:00 11/15/24 21:53 20 MG Methylprednisolone Sodium Succinate 40 mg Q8HR IV 11/13/24 06:00 11/16/24 05:56 40 MG Levothyroxine Sodium 25 mcg QAM@0600 PO 11/13/24 06:00 11/16/24 05:56 25 MCG Albuterol 2.5 mg Q4HPRN PRN NEB 11/13/24 05:45 11/15/24 14:23 2.5 MG Ipratropium [place] 0.5 mg Q4HPRN PRN NEB 11/13/24 05:45 11/15/24 14:23 0.5 MG Sodium Chloride 10 ml Q8HR IV 11/13/24 06:00 11/16/24 05:55 10 ML Acetaminophen/ Hydrocodone Bitart 1 tab Q4HP PRN PO 11/13/24 05:45 11/16/24 09:33 1 TAB Ondansetron HCl 4 mg Q4HP PRN IV 11/13/24 05:45 Docusate Sodium 100 mg BIDPRN PRN PO 11/13/24 05:45 11/15/24 08:17 100 MG Acetaminophen 650 mg Q6HP PRN PO 11/13/24 05:45 11/16/24 04:51 650 MG Nitroglycerin 0.4 mg Q5MINP PRN SL 11/13/24 05:45 Morphine Sulfate 2 mg Q30M PRN IV 11/13/24 05:45 Guaifenesin 200 mg Q4HP PRN PO 11/14/24 13:15 11/14/24 14:20 200 MG Zirconium Oxide 10 gm TID PO 11/15/24 14:45 11/17/24 00:00 11/16/24 05:56 10 GM Bumetanide 2 mg BID IV 11/15/24 14:45 11/16/24 09:32 2 MG Albuterol 2.5 mg Q6HR NEB 11/15/24 18:00 11/16/24 00:38 2.5 MG Ipratropium [place] 0.5 mg Q6HR NEB 11/15/24 18:00 11/16/24 00:38 0.5 MG Polyethylene Glycol 17 gm DAILY PO 11/16/24 10:00 Pantoprazole Sodium 40 mg BID@0600,1700 PO 11/16/24 06:00 11/16/24 05:56 40 MG Laboratory Results Laboratory Tests 11/16/24 04:35 Chemistry Test 11/16/24 04:35 Albumin 3.0 g/dL (3.2-4.8) L Calcium Level 8.8 mg/dL (8.7-10.4) Total Protein 4.9 g/dL (5.7-8.2) L LFT Test 11/16/24 04:35 Alanine Aminotransferase (ALT) 16 U/L (7-40) Alkaline Phosphatase 83 U/L (46-116) Aspartate Amino Transferase (AST) 22 U/L (13-40) Total Bilirubin 0.3 mg/dL (0.2-1.0) Urinalysis Test 11/13/24 04:20 Urine Color Light-yellow (Yellow) Urine Clarity Clear (Clear) Urine pH 5.5 (5.0-9.0) Urine Specific [place] 1.021 (1.001-1.035) Urine Protein Negative (Negative) Urine Ketones Negative (Negative) Urine Blood Negative /uL (Negative) Urine Nitrite 1+ (Negative) H Urine Bilirubin Negative (Negative) Urine Urobilinogen Normal mg/dL (Negative) Urine Leukocyte Esterase Negative /uL (Negative) Urine RBC <1 /hpf (0 - 4) Urine Microscopic WBC < 1 /HPF (0-5) Urine Squamous Epithelial Cells Few /hpf (<5) Urine Bacteria Few /hpf (None Seen) H Urine Yeast (Budding) Occasional /hpf (None Urine Glucose Normal mg/dL (Normal) Labs and/or images reviewed: Labs reviewed by me, Image(s) reviewed by me Assessment/Plan Assessment/Plan Severe symptomatic anemia hemoglobin 6.2 improved to 7.3 after 2 units RBC transfusion, will transfuse one more unit today GI consult for Dr. Wade to rule out GI causes of anemia Acute hypoxic respiratory failure: Oxygen by nasal cannula Acute asthma exacerbation: Albuterol Atrovent Solu-Medrol Acute COPD exacerbation: Consult for Dr. Duque appreciated Acute generalized weakness Chronic anemia Arthritis Chronic kidney disease GERD Hypertension Hyperlipidemia Hypothyroidism Lymphedema CT abdomen pelvis with IV contrast ordered Morbid obesity History of gastric bypass 2003 Hiatal hernia repair 2003 History of smoking for 20 years quit in 1998 Previous hospitalizations in [facility] and [facility] History of bilateral inguinal hernia Obstructive Sleep apnea on CPAP History of cholecystectomy DVT ruled out Acute Hyperkalemia potassium 5.3: Consult for [employer] Time spent 70 minutes ED at bedside Patient is full code Plan discussed with: Patient My Orders Orders - TANO FAJARDO MD Procedure Category Date Status Time * Wound Consult CONS 11/15/24 Transmitted Date of Service: Nov 16, 2024 Billing Provider: TANO FAJARDO MD Common Visit Codes: 54062-PNUOKZFE CARE 30-74 MIN TANO FAJARDO MD Nov 16, 2024 11:52
--- NOTE | 2024-11-16 12:00 | DVHPN2 ---
Progress Note Date Seen: Nov 16, 2024 Resident Creating Document: NORMA ABERNATHY RESIDENT Medical Necessity Reason Pt with a Central, PICC or Fol: Yes The following are medically ne: Patterson Catheter Reason for patterson catheter: Strict I&O Subjective Review of Systems The patient is a 64-year-old female morbidly obese with multiple past medical history including arthritis, asthma, anemia, thyroid disease, and hypertension who presented to [facility] ED with complaint of shortness of breaths. Patient reports she has been experiencing shortness of breaths associated with generalized weakness, dry cough, wheezing, getting worse that prompted this visit. She states she has used her home nebulizer and inhaler without relief. Patient also notes worsening lower extremity edema for the past 3 weeks, with edema now extending to her torso and upper extremities. She reports she has been seen by a mold dresser in the past, underwent workup including Holter monitoring, and was told there was no heart disease. Nephrology consulted for hyperkalemia 11/15-Patient seen and examined at bedside. Chocolate and jello seen at bedside, patient was counseled regarding healthy diet and low-potassium diet. 11/16-patient seen and examined at the bedside. Urine output 4850 cc in 24 hours. Continue Bumex. Stool occult is positive. One packed RBC pending. Objective vital signs Vital Sign Date Time Temp Pulse Resp B/P (MAP) Pulse Ox O2 Delivery O2 Flow Rate FiO2 11/16/24 09:32 140/75 11/16/24 08:32 98.2 71 16 97 98.2 11/16/24 08:00 Nasal Cannula* 2 28 Total Intake and Output 11/15/24 11/15/24 11/16/24 15:00 23:00 07:00 Intake Total 800 ml 400 ml Output Total 900 ml 3950 ml Balance -100 ml -3550 ml medications Current Medications Medications Dose Ordered Sig/Winifred Route Start Time Stop Time Status Last Admin Dose Admin Atorvastatin Calcium 20 mg HS PO 11/13/24 22:00 11/15/24 21:53 20 MG Methylprednisolone Sodium Succinate 40 mg Q8HR IV 11/13/24 06:00 11/16/24 05:56 40 MG Levothyroxine Sodium 25 mcg QAM@0600 PO 11/13/24 06:00 11/16/24 05:56 25 MCG Albuterol 2.5 mg Q4HPRN PRN NEB 11/13/24 05:45 11/15/24 14:23 2.5 MG Ipratropium [place] 0.5 mg Q4HPRN PRN NEB 11/13/24 05:45 11/15/24 14:23 0.5 MG Sodium Chloride 10 ml Q8HR IV 11/13/24 06:00 11/16/24 05:55 10 ML Acetaminophen/ Hydrocodone Bitart 1 tab Q4HP PRN PO 11/13/24 05:45 11/16/24 09:33 1 TAB Ondansetron HCl 4 mg Q4HP PRN IV 11/13/24 05:45 Docusate Sodium 100 mg BIDPRN PRN PO 11/13/24 05:45 11/15/24 08:17 100 MG Acetaminophen 650 mg Q6HP PRN PO 11/13/24 05:45 11/16/24 04:51 650 MG Nitroglycerin 0.4 mg Q5MINP PRN SL 11/13/24 05:45 Morphine Sulfate 2 mg Q30M PRN IV 11/13/24 05:45 Guaifenesin 200 mg Q4HP PRN PO 11/14/24 13:15 11/14/24 14:20 200 MG Zirconium Oxide 10 gm TID PO 11/15/24 14:45 11/17/24 00:00 11/16/24 05:56 10 GM Bumetanide 2 mg BID IV 11/15/24 14:45 11/16/24 09:32 2 MG Albuterol 2.5 mg Q6HR NEB 11/15/24 18:00 11/16/24 00:38 2.5 MG Ipratropium [place] 0.5 mg Q6HR NEB 11/15/24 18:00 11/16/24 00:38 0.5 MG Polyethylene Glycol 17 gm DAILY PO 11/16/24 10:00 Pantoprazole Sodium 40 mg BID@0600,1700 PO 11/16/24 06:00 11/16/24 05:56 40 MG Examination Morbidly obese female patient lying in the bed, no acute distress General: Generalized anasarca. Morbidly obese, pillar, mucosae are moist Cardiovascular: Regular S1 and S2. No murmurs, gallops or rubs. No JVD elevation. 3+ pedal edema Respiratory: On NC 2 L supplementation Abdomen: Soft, nontender, nondistended, normoactive bowel sounds, no rebound tenderness, no organomegaly, no masses Genitourinary: Deferred MSK/skin: Mobilizes 4 limbs. Skin is dry and warm Neurological: No motor, no sensitive deficits, normal speech. Pupils are isocoric and reactive. Psych/Mental Status: A/Ox3 laboratory and microbiology Laboratory Tests 11/16/24 04:35 Test 11/16/24 04:35 Range/Units Serum Glucose 121 H 74-106 mg/dL Labs and/or images reviewed: Labs reviewed by me, Image(s) reviewed by me Problem List/Assessment/Plan Problem List/Assessment/Plan Hyperkalemia Pulmonary edema Acute hypoxic respiratory failure secondary to above Acute microcytic anemia questionable blood loss status post blood transfusion x2 Liver cirrhosis Diverticulosis Small bilateral pleural effusion Morbid obesity History of gastric bypass Chest CT shows moderate to large stool volume within the colon, small bilateral pleural effusion, hepatic steatosis, liver capsule is nodular may represent cirrhosis. Plan: Patient receiving 2nd packed RBC unit today given hemoglobin 7 point Potassium 4.4, continue Lokelma 10 mg TID for 6 doses Decreased Bumex to 1 mg IV b.i.d. from 2 mg IV b.i.d. started given pulmonary edema and bilateral pedal edema. Patient will benefit from 1 mg Bumex b.i.d. on discharge. NS 500 bolus to prevent contrast induced nephropathy Low-potassium diet advised Avoid preserved and processed food high in potassium Discontinue potassium supplementation-patient takes KCl tablets at home We will continue to monitor Monitor H&H Physical therapy advised Plan discussed with patient, at bedside in which all questions have been answered Case discussed with Dr. Franco Addendum Patient seen and examined, plan discussed with resident. Agree with above, we will follow closely stool occult blood + prbc diuretics Plan discussed with: Patient My Orders My Orders Orders - NORMA ABERNATHY RESIDENT Procedure Category Date Status Time Cardiac DIET 11/15/24 Transmitted Diet-2gna,Lofat,Lochol Dinner Sodium Zirconium PHA 11/15/24 In Process Cyclosilicate 14:45 Bumetanide Injection PHA 11/15/24 In Process (Bumex Injection) 14:45 Communication Order ORDERS 11/15/24 Transmitted 14:45 Strict I & O SIMBA 11/15/24 In Process 14:45 CC Plasma Assessment Blood Product Administration S: [id number] NORMA ABERNATHY Nov 16, 2024 12:00 CY FRANCO MD Nov 16, 2024 19:24
[2024-11-16] MEDS ORDERED: BUME2TAB5 PO (14:30)
--- NOTE | 2024-11-16 23:08 | DVHPN2 ---
Progress Note - Dictate Date Seen: Nov 16, 2024 Medical Necessity Reason Pt with a Central, PICC or Fol: Yes The following are medically ne: Patterson Catheter Reason for patterson catheter: Strict I&O Subjective This 68-year-old female who is morbidly obese admitted symptomatic anemia S/P 1 unit PRBC. Her stool for occult blood is positive with the complaints of weakness tiredness and phos Had colonoscopy a few years ago at the [facility]; She had some polyps never had an EGD after the gastric bypass in 2001 Patient complains of fluid retention increasing pedal edema and worsening of her lymphedema She denies any active GI bleeding at this time and she is tolerating a diet Patient usually tends to be constipated and has a history of anemia related to gastric bypass, currently not taking any vitamin supplements vital signs Vital Sign Date Time Temp Pulse Resp B/P (MAP) Pulse Ox O2 Delivery O2 Flow Rate FiO2 11/16/24 21:25 128/61 11/16/24 21:00 98.0 79 18 95 98.0 11/16/24 18:00 Nasal Cannula* 2 28 Total Intake and Output 11/15/24 11/15/24 11/16/24 15:00 23:00 07:00 Intake Total 800 ml 400 ml Output Total 900 ml 3950 ml Balance -100 ml -3550 ml medications Current Medications Medications Dose Ordered Sig/Winifred Route Start Time Stop Time Status Last Admin Dose Admin Atorvastatin Calcium 20 mg HS PO 11/13/24 22:00 11/16/24 21:26 20 MG Methylprednisolone Sodium Succinate 40 mg Q8HR IV 11/13/24 06:00 11/16/24 21:25 40 MG Levothyroxine Sodium 25 mcg QAM@0600 PO 11/13/24 06:00 11/16/24 05:56 25 MCG Albuterol 2.5 mg Q4HPRN PRN NEB 11/13/24 05:45 11/15/24 14:23 2.5 MG Ipratropium [place] 0.5 mg Q4HPRN PRN NEB 11/13/24 05:45 11/15/24 14:23 0.5 MG Sodium Chloride 10 ml Q8HR IV 11/13/24 06:00 11/16/24 21:25 10 ML Acetaminophen/ Hydrocodone Bitart 1 tab Q4HP PRN PO 11/13/24 05:45 11/16/24 20:07 1 TAB Ondansetron HCl 4 mg Q4HP PRN IV 11/13/24 05:45 Docusate Sodium 100 mg BIDPRN PRN PO 11/13/24 05:45 11/15/24 08:17 100 MG Acetaminophen 650 mg Q6HP PRN PO 11/13/24 05:45 11/16/24 04:51 650 MG Nitroglycerin 0.4 mg Q5MINP PRN SL 11/13/24 05:45 Morphine Sulfate 2 mg Q30M PRN IV 11/13/24 05:45 Guaifenesin 200 mg Q4HP PRN PO 11/14/24 13:15 11/14/24 14:20 200 MG Bumetanide 2 mg BID IV 11/15/24 14:45 11/16/24 21:25 2 MG Albuterol 2.5 mg Q6HR NEB 11/15/24 18:00 11/16/24 00:38 2.5 MG Ipratropium [place] 0.5 mg Q6HR NEB 11/15/24 18:00 11/16/24 00:38 0.5 MG Polyethylene Glycol 17 gm DAILY PO 11/16/24 10:00 Pantoprazole Sodium 40 mg BID@0600,1700 PO 11/16/24 06:00 11/16/24 16:47 40 MG objective Morbidly obese female patient lying in the bed, no acute distress General: Morbidly obese, mild pallor, mucosae are moist Cardiovascular: Regular S1 and S2. No murmurs, gallops or rubs. No JVD elevation. 3+ pedal edema Respiratory: On NC 2 L supplementation Abdomen: Soft, nontender, nondistended, obese normoactive bowel sounds, no rebound tenderness, no organomegaly, no masses MSK/skin: Mobilizes 4 limbs. Skin is dry and warm; extensive lymphedema laboratory and microbiology Laboratory Tests 11/16/24 04:35 Test 11/16/24 04:35 Range/Units Serum Glucose 121 H 74-106 mg/dL Problems(with codes): (1) Generalized weakness (2) Symptomatic anemia (3) Asthma exacerbation (4) Fluid overload (5) Lymphedema Prognosis Plan Continue supportive care Protonix 40 mg p.o. daily Carafate 1 g p.o. twice a day DC aspirin NSAIDs smoking alcohol Continue to monitor labs Patient is agreeable for possible endoscopy however patient needs medical stabilization for now Plan discussed with: Patient CC Plasma Assessment Blood Product Administration S: [id number] YOLANDA BURKS MD Nov 16, 2024 23:08
--- NOTE | 2024-11-16 23:45 | DVHPN2 ---
Progress Note - Dictate Date Seen: Nov 16, 2024 Medical Necessity Reason Pt with a Central, PICC or Fol: Yes The following are medically ne: Patterson Catheter Reason for patterson catheter: Strict I&O Subjective Patient seen and examined at bedside. Remains on supplemental oxygen Overnight events reviewed. [facility] vital signs Vital Sign Date Time Temp Pulse Resp B/P (MAP) Pulse Ox O2 Delivery O2 Flow Rate FiO2 11/16/24 21:25 128/61 11/16/24 21:00 98.0 79 18 95 98.0 11/16/24 18:00 Nasal Cannula* 2 28 Total Intake and Output 11/15/24 11/15/24 11/16/24 15:00 23:00 07:00 Intake Total 800 ml 400 ml Output Total 900 ml 3950 ml Balance -100 ml -3550 ml medications Current Medications Medications Dose Ordered Sig/Winifred Route Start Time Stop Time Status Last Admin Dose Admin Atorvastatin Calcium 20 mg HS PO 11/13/24 22:00 11/16/24 21:26 20 MG Methylprednisolone Sodium Succinate 40 mg Q8HR IV 11/13/24 06:00 11/16/24 21:25 40 MG Levothyroxine Sodium 25 mcg QAM@0600 PO 11/13/24 06:00 11/16/24 05:56 25 MCG Albuterol 2.5 mg Q4HPRN PRN NEB 11/13/24 05:45 11/15/24 14:23 2.5 MG Ipratropium [place] 0.5 mg Q4HPRN PRN NEB 11/13/24 05:45 11/15/24 14:23 0.5 MG Sodium Chloride 10 ml Q8HR IV 11/13/24 06:00 11/16/24 21:25 10 ML Acetaminophen/ Hydrocodone Bitart 1 tab Q4HP PRN PO 11/13/24 05:45 11/16/24 20:07 1 TAB Ondansetron HCl 4 mg Q4HP PRN IV 11/13/24 05:45 Docusate Sodium 100 mg BIDPRN PRN PO 11/13/24 05:45 11/15/24 08:17 100 MG Acetaminophen 650 mg Q6HP PRN PO 11/13/24 05:45 11/16/24 04:51 650 MG Nitroglycerin 0.4 mg Q5MINP PRN SL 11/13/24 05:45 Morphine Sulfate 2 mg Q30M PRN IV 11/13/24 05:45 Guaifenesin 200 mg Q4HP PRN PO 11/14/24 13:15 11/14/24 14:20 200 MG Bumetanide 2 mg BID IV 11/15/24 14:45 11/16/24 21:25 2 MG Albuterol 2.5 mg Q6HR NEB 11/15/24 18:00 11/16/24 00:38 2.5 MG Ipratropium [place] 0.5 mg Q6HR NEB 11/15/24 18:00 11/16/24 00:38 0.5 MG Polyethylene Glycol 17 gm DAILY PO 11/16/24 10:00 Pantoprazole Sodium 40 mg BID@0600,1700 PO 11/16/24 06:00 11/16/24 16:47 40 MG objective Gen.: Patient lying in bed in no apparent distress. On supplemental oxygen. Head: Normocephalic, atraumatic. Eyes: EOMI/PERRLA. Ears: Normal hearing. Normal anatomy. Neck/trachea: Trachea midline, supple. Nose: Normal external anatomy. Mouth: Moist mucous membranes. Chest: Decreased air entry bilaterally. No wheezing or rhonchi. Cardiovascular: Positive S1, positive S2. Regular rate and rhythm. Abdomen: Positive bowel sounds in all 4 quadrants. Soft, non-tender, non- distended. : Deferred. Rectal: Deferred. Skin: Warm, dry. Intact. Extremities: 2+ radial pulses bilaterally. No lower extremity edema. Neuro: Awake, alert, oriented x3. No gross motor or sensory deficits. Cranial nerves II through XII intact. Gait not assessed. laboratory and microbiology Laboratory Tests 11/16/24 04:35 Test 11/16/24 04:35 Range/Units Serum Glucose 121 H 74-106 mg/dL Assessment/Plan Impression: Acute hypoxic respiratory failure Dependence on supplemental oxygen Asthma exacerbation Pulmonary edema Atelectasis Anemia Super morbid obesity, BMI 68.6 Events: Remains on supplemental oxygen, 2 LPM NC Taper O2 as tolerated Improved O2 requirements. Plan for spirometry in the AM. Continue bronchodilators Continue IV steroids - taper as tolerated Antitussive PRN cough. Incentive spirometry CT abdomen-pelvis reviewed; Small bilateral pleural effusions. Moderate to large volume stool within the colon most pronounced within the rectum. Colonic diverticular disease. Soft tissue edema/anasarca. Hepatic steatosis. Liver capsule nodular morphology, may represent sequela of cirrhosis. Distended IVC which can be seen with volume overload. Diurese with Bumex Monitor renal function. Monitor electrolytes. Supplement as necessary. Monitor ins and outs. Protonix for GI ppx Monitor hemoglobin - currently 7.3 g/dL Transfuse if less than 7.0 g/dL. Labs and imaging reviewed. Rest of plan as noted below. Plan: Supplemental oxygen Titrate to keep O2 sats above 92%. Continue bronchodilators, q.6 hours scheduled. Continue steroids Incentive spirometry Antitussive PRN cough Monitor hemoglobin Diurese to euvolemia Monitor renal function. Monitor electrolytes. Supplement as necessary. Monitor ins and outs. Diet and lifestyle modifications for weight reduction Obesity complicates all care GI/DVT prophylaxis. Prognosis: Poor given patient's multiple co-morbidities. Rest of plan per hospitalist and other consultants. Thank you, ASHLEY Díaz, for allowing me to participate in this patient's care. Further recommendations will depend on the patient's clinical course. Please do not hesitate to contact me if you have any questions or concerns. This medical document was created using an electronic medical record system with [employer] dictation system. Although these documentations are being carefully reviewed, there may still be some phonetic and typographical changes. The errors are purely typographical, due to imperfection on the software program, and do not reflect any compromise in the patient's medical care. Plan discussed with: Patient, Other (PROSPER Cruz) CC Plasma Assessment Blood Product Administration S: [id number] SOWMYA MCDONALD MD Nov 16, 2024 23:45
[2024-11-17] VITALS (14 sets, daily range): BP systolic 117–138; BP diastolic 51–70; PULSE 61–102; RESP 16–20; TEMP 97.3–98.5; O2SAT 94–100
[2024-11-17 06:59] LABS: Hematocrit 27.7 % (36.0-46.0); Hemoglobin 8.4 g/dL (12.2-16.2)
[2024-11-17 07:03] LABS: Mean Corpuscular Hemoglobin 22.1 pg (28.0-32.0); Mean Corpuscular Volume 72.7 fL (80.0-100.0); Nucleated Red Blood Cells % 0.1 %
[2024-11-17 07:15] LABS: Alanine Aminotransferase 18 U/L (7-40); Alkaline Phosphatase 81 U/L (46-116); Anion Gap 6 (5-15); BUN/Creatinine Ratio 31.6 (10.0-20.0); Calcium 9.0 mg/dL (8.7-10.4); Chloride 104 mmol/L (98-107); Potassium 4.0 mmol/L (3.5-5.1); Sodium 142 mmol/L (136-145)
[2024-11-17 07:16] LABS: Bilirubin, Total 0.4 mg/dL (0.2-1.0)
[2024-11-17 07:19] LABS: Albumin 3.1 g/dL (3.2-4.8); Blood Urea Nitrogen 31 mg/dL (9-23); Carbon Dioxide 32 mmol/L (20-31); Glucose 111 mg/dL (74-106); Total Protein 5.0 g/dL (5.7-8.2)
--- NOTE | 2024-11-17 11:27 | DVHPN2 ---
Reviewed: Care Plan, H&P, Labs, Medications, Previous Orders, Radiology Changes from previous H/P or p: No Changes Eyes: No Pain, No Vision change, No Conjunctivae inflammation, No Eyelid inflammation, No Other, No Redness ENT: No Ear pain, No Ear discharge, No Nose pain, No Nose discharge, No Nose congestion, No Mouth pain, No Mouth swelling, No Throat pain, No Throat swelling, No Other Cardiovascular: No Chest Pain, No Palpitations, No Orthopnea, No Paroxysmal Noc. Dyspnea, No Edema, No Lt Headedness, No Other Respiratory: Cough; No Dry; Shortness of breath, SOB with excertion, Wheezing; No Hemoptysis, No Pleuritic Pain, No Sputum; Other (SOB at rest) Gastrointestinal: No Nausea, No Vomiting, No Abdominal Pain, No Diarrhea, No Constipation, No Melena, No Hematochezia, No Other Genitourinary: No Dysuria, No Frequency, No Incontinence, No Hematuria, No Retention, No Other Musculoskeletal: No other, No neck pain, No shoulder pain, No arm pain, No back pain, No hand pain, No leg pain, No foot pain Skin: No Rash, No Lesions, No Jaundice, No Bruising, No Other Objective Vitals Vital Signs Date Time Temp Pulse Resp B/P (MAP) Pulse Ox O2 Delivery O2 Flow Rate FiO2 11/17/24 11:06 82 16 100 11/17/24 11:00 Nasal Cannula* 2 28 11/17/24 09:49 130/68 11/17/24 09:00 97.3 97.3 Intake/Output Intake and Output 11/17/24 07:00 Intake Total 1100 ml Output Total 99573 ml Balance -9500 ml Intake Oral 800 ml Blood Product 300 ml Output Urine Total 91907 ml # Bowel Movements 6 Medications Current Medications Medications Dose Ordered Sig/Winifred Route Start Time Stop Time Status Last Admin Dose Admin Atorvastatin Calcium 20 mg HS PO 11/13/24 22:00 11/16/24 21:26 20 MG Methylprednisolone Sodium Succinate 40 mg Q8HR IV 11/13/24 06:00 11/17/24 05:13 40 MG Levothyroxine Sodium 25 mcg QAM@0600 PO 11/13/24 06:00 11/17/24 05:14 25 MCG Albuterol 2.5 mg Q4HPRN PRN NEB 11/13/24 05:45 7/7/25 14:23 2.5 MG Ipratropium [place] 0.5 mg Q4HPRN PRN NEB 11/13/24 05:45 11/15/24 14:23 0.5 MG Sodium Chloride 10 ml Q8HR IV 11/13/24 06:00 11/17/24 05:13 10 ML Acetaminophen/ Hydrocodone Bitart 1 tab Q4HP PRN PO 11/13/24 05:45 11/17/24 09:47 1 TAB Ondansetron HCl 4 mg Q4HP PRN IV 11/13/24 05:45 Docusate Sodium 100 mg BIDPRN PRN PO 11/13/24 05:45 11/15/24 08:17 100 MG Acetaminophen 650 mg Q6HP PRN PO 11/13/24 05:45 11/16/24 04:51 650 MG Nitroglycerin 0.4 mg Q5MINP PRN SL 11/13/24 05:45 Morphine Sulfate 2 mg Q30M PRN IV 11/13/24 05:45 Guaifenesin 200 mg Q4HP PRN PO 11/14/24 13:15 11/14/24 14:20 200 MG Bumetanide 2 mg BID IV 11/15/24 14:45 11/17/24 09:49 2 MG Albuterol 2.5 mg Q6HR NEB 11/15/24 18:00 11/17/24 11:00 2.5 MG Ipratropium [place] 0.5 mg Q6HR NEB 11/15/24 18:00 11/17/24 11:00 0.5 MG Polyethylene Glycol 17 gm DAILY PO 11/16/24 10:00 Pantoprazole Sodium 40 mg BID@0600,1700 PO 11/16/24 06:00 11/17/24 05:14 40 MG Laboratory Results Laboratory Tests 11/17/24 06:05 Chemistry Test 11/17/24 06:05 Albumin 3.1 g/dL (3.2-4.8) L Calcium Level 9.0 mg/dL (8.7-10.4) Total Protein 5.0 g/dL (5.7-8.2) L LFT Test 11/17/24 06:05 Alanine Aminotransferase (ALT) 18 U/L (7-40) Alkaline Phosphatase 81 U/L (46-116) Aspartate Amino Transferase (AST) 25 U/L (13-40) Total Bilirubin 0.4 mg/dL (0.2-1.0) Urinalysis Test 11/13/24 04:20 Urine Color Light-yellow (Yellow) Urine Clarity Clear (Clear) Urine pH 5.5 (5.0-9.0) Urine Specific [place] 1.021 (1.001-1.035) Urine Protein Negative (Negative) Urine Ketones Negative (Negative) Urine Blood Negative /uL (Negative) Urine Nitrite 1+ (Negative) H Urine Bilirubin Negative (Negative) Urine Urobilinogen Normal mg/dL (Negative) Urine Leukocyte Esterase Negative /uL (Negative) Urine RBC <1 /hpf (0 - 4) Urine Microscopic WBC < 1 /HPF (0-5) Urine Squamous Epithelial Cells Few /hpf (<5) Urine Bacteria Few /hpf (None Seen) H Urine Yeast (Budding) Occasional /hpf (None Urine Glucose Normal mg/dL (Normal) Labs and/or images reviewed: Labs reviewed by me, Image(s) reviewed by me Assessment/Plan Assessment/Plan Severe symptomatic anemia hemoglobin 6.2 improved to 8.3 after 3 units RBC transfusion, Acute hypoxic respiratory failure: Oxygen by nasal cannula Acute asthma exacerbation: Albuterol Atrovent Solu-Medrol Acute COPD exacerbation: Consult for Dr. Duque appreciated Acute generalized weakness Chronic anemia Arthritis Chronic kidney disease GERD Hypertension Hyperlipidemia Hypothyroidism Lymphedema CT abdomen pelvis with IV contrast ordered Morbid obesity History of gastric bypass 2003 Hiatal hernia repair 2003 History of smoking for 20 years quit in 1998 Previous hospitalizations in [facility] and [facility] History of bilateral inguinal hernia Obstructive Sleep apnea on CPAP History of cholecystectomy DVT ruled out Acute Hyperkalemia potassium 5.3: Consult for Game Manager Time spent 70 minutes ED at bedside GI Dr.N Gilmore planning for endoscopy Patient is full code Plan discussed with: Patient Date of Service: Nov 17, 2024 Billing Provider: TANO FAJARDO MD Common Visit Codes: [id number] INP/OBS CARE(HIGH) TANO FAJARDO MD Nov 17, 2024 11:27
--- NOTE | 2024-11-17 16:39 | DVHPN2 ---
Progress Note Date Seen: Nov 17, 2024 Resident Creating Document: NORMA ABERNATHY RESIDENT Medical Necessity Reason Pt with a Central, PICC or Fol: Yes The following are medically ne: Patterson Catheter Reason for patterson catheter: Strict I&O Subjective Review of Systems The patient is a 64-year-old female morbidly obese with multiple past medical history including arthritis, asthma, anemia, thyroid disease, and hypertension who presented to [facility] ED with complaint of shortness of breaths. Patient reports she has been experiencing shortness of breaths associated with generalized weakness, dry cough, wheezing, getting worse that prompted this visit. She states she has used her home nebulizer and inhaler without relief. Patient also notes worsening lower extremity edema for the past 3 weeks, with edema now extending to her torso and upper extremities. She reports she has been seen by a drain tile press operator in the past, underwent workup including Holter monitoring, and was told there was no heart disease. Nephrology consulted for hyperkalemia 11/15-Patient seen and examined at bedside. Chocolate and jello seen at bedside, patient was counseled regarding healthy diet and low-potassium diet. 11/16-patient seen and examined at the bedside. Urine output 4850 cc in 24 hours. Continue Bumex. Stool occult is positive. One packed RBC pending. 05/20-patient seen and examined, urine output [id number] cc in 24 hours. Continue Bumex. Objective vital signs Vital Sign Date Time Temp Pulse Resp B/P (MAP) Pulse Ox O2 Delivery O2 Flow Rate FiO2 11/17/24 16:31 98.0 87 18 132/70 (90) 94 98.0 11/17/24 11:00 Nasal Cannula* 2 28 Total Intake and Output 11/16/24 11/16/24 11/17/24 15:00 23:00 07:00 Intake Total 500 ml 600 ml Output Total 4050 ml 6550 ml Balance -3550 ml -5950 ml medications Current Medications Medications Dose Ordered Sig/Winifred Route Start Time Stop Time Status Last Admin Dose Admin Atorvastatin Calcium 20 mg HS PO 11/13/24 22:00 11/16/24 21:26 20 MG Methylprednisolone Sodium Succinate 40 mg Q8HR IV 11/13/24 06:00 11/17/24 13:26 40 MG Levothyroxine Sodium 25 mcg QAM@0600 PO 11/13/24 06:00 11/17/24 05:14 25 MCG Albuterol 2.5 mg Q4HPRN PRN NEB 11/13/24 05:45 11/15/24 14:23 2.5 MG Ipratropium [place] 0.5 mg Q4HPRN PRN NEB 11/13/24 05:45 11/15/24 14:23 0.5 MG Sodium Chloride 10 ml Q8HR IV 11/13/24 06:00 11/17/24 13:31 10 ML Acetaminophen/ Hydrocodone Bitart 1 tab Q4HP PRN PO 11/13/24 05:45 11/17/24 09:47 1 TAB Ondansetron HCl 4 mg Q4HP PRN IV 11/13/24 05:45 Docusate Sodium 100 mg BIDPRN PRN PO 11/13/24 05:45 11/15/24 08:17 100 MG Acetaminophen 650 mg Q6HP PRN PO 11/13/24 05:45 11/16/24 04:51 650 MG Nitroglycerin 0.4 mg Q5MINP PRN SL 11/13/24 05:45 Morphine Sulfate 2 mg Q30M PRN IV 11/13/24 05:45 Guaifenesin 200 mg Q4HP PRN PO 11/14/24 13:15 11/14/24 14:20 200 MG Bumetanide 2 mg BID IV 11/15/24 14:45 11/17/24 09:49 2 MG Albuterol 2.5 mg Q6HR NEB 11/15/24 18:00 11/17/24 11:00 2.5 MG Ipratropium [place] 0.5 mg Q6HR NEB 11/15/24 18:00 11/17/24 11:00 0.5 MG Polyethylene Glycol 17 gm DAILY PO 11/16/24 10:00 Pantoprazole Sodium 40 mg BID@0600,1700 PO 11/16/24 06:00 11/17/24 05:14 40 MG Examination Morbidly obese female patient lying in the bed, no acute distress General: Generalized anasarca. Morbidly obese, pillar, mucosae are moist Cardiovascular: Regular S1 and S2. No murmurs, gallops or rubs. No JVD elevation. 3+ pedal edema Respiratory: On NC 2 L supplementation Abdomen: Soft, nontender, nondistended, normoactive bowel sounds, no rebound tenderness, no organomegaly, no masses Genitourinary: Deferred MSK/skin: Mobilizes 4 limbs. Skin is dry and warm Neurological: No motor, no sensitive deficits, normal speech. Pupils are isocoric and reactive. Psych/Mental Status: A/Ox3 laboratory and microbiology Laboratory Tests 11/17/24 06:05 Test 11/17/24 06:05 Range/Units Serum Glucose 111 H 74-106 mg/dL Labs and/or images reviewed: Labs reviewed by me, Image(s) reviewed by me Problem List/Assessment/Plan Problem List/Assessment/Plan Hyperkalemia Pulmonary edema Acute hypoxic respiratory failure secondary to above Acute microcytic anemia questionable blood loss status post blood transfusion x2 ? Liver cirrhosis Diverticulosis Small bilateral pleural effusion Morbid obesity History of gastric bypass Chest CT shows moderate to large stool volume within the colon, small bilateral pleural effusion, hepatic steatosis, liver capsule is nodular may represent cirrhosis. Plan: Status post 2 packed RBC transfusion, hemoglobin stable Potassium stable, completed 6 doses of Lokelma Decreased Bumex to 1 mg IV b.i.d. from 2 mg IV b.i.d. started given pulmonary edema and bilateral pedal edema. Patient will benefit from 1 mg Bumex b.i.d. on discharge. Follow up with the iron panel Low-potassium diet advised Avoid preserved and processed food high in potassium Discontinue potassium supplementation-patient takes KCl tablets at home We will continue to monitor Monitor H&H Physical therapy advised Plan discussed with patient, at bedside in which all questions have been answered Case discussed with Dr. Franco Addendum Patient seen and examined, plan discussed with resident. Agree with above, we will follow closely iv iron ordered Plan discussed with: Patient Dietary Evaluation Review Recommendations by RD: Decrease Calorie Intake Comments: 1) MVI 1 tab daily, ferrous sulfate 325mg BID 2) Check VitD level 3) Consider Cardiac diet 4) Refer CDE for weight management on DC Expected Outcomes/Goals: To meet 75% estimated needs FU 3-5 days CC Plasma Assessment Blood Product Administration S: [id number] NORMA ABERNATHY RESIDENT Nov 17, 2024 16:39 CY FRANCO MD Nov 17, 2024 18:57
[2024-11-17 18:14] LABS: Iron 19.0 ug/dL (50-170)
[2024-11-17 18:17] LABS: Total Iron Binding Capacity 291.0 ug/dL (250-425)
--- NOTE | 2024-11-17 20:15 | DVHPN2 ---
Progress Note - Dictate Date Seen: Nov 17, 2024 Medical Necessity Reason Pt with a Central, PICC or Fol: Yes The following are medically ne: Patterson Catheter Reason for patterson catheter: Strict I&O Subjective Patient seen and examined at bedside. Remains on supplemental oxygen Overnight events reviewed. [facility] vital signs Vital Sign Date Time Temp Pulse Resp B/P (MAP) Pulse Ox O2 Delivery O2 Flow Rate FiO2 11/17/24 19:44 90 16 98 11/17/24 19:38 Nasal Cannula 2.0 11/17/24 19:38 28 11/17/24 16:31 98.0 132/70 (90) 98.0 Total Intake and Output 11/16/24 11/16/24 11/17/24 15:00 23:00 07:00 Intake Total 500 ml 600 ml Output Total 4050 ml 6550 ml Balance -3550 ml -5950 ml medications Current Medications Medications Dose Ordered Sig/Winifred Route Start Time Stop Time Status Last Admin Dose Admin Atorvastatin Calcium 20 mg HS PO 11/13/24 22:00 11/16/24 21:26 20 MG Levothyroxine Sodium 25 mcg QAM@0600 PO 11/13/24 06:00 11/17/24 05:14 25 MCG Albuterol 2.5 mg Q4HPRN PRN NEB 11/13/24 05:45 11/15/24 14:23 2.5 MG Ipratropium [place] 0.5 mg Q4HPRN PRN NEB 11/13/24 05:45 11/15/24 14:23 0.5 MG Sodium Chloride 10 ml Q8HR IV 11/13/24 06:00 11/17/24 13:31 10 ML Acetaminophen/ Hydrocodone Bitart 1 tab Q4HP PRN PO 11/13/24 05:45 11/17/24 16:35 1 TAB Ondansetron HCl 4 mg Q4HP PRN IV 11/13/24 05:45 Docusate Sodium 100 mg BIDPRN PRN PO 11/13/24 05:45 11/15/24 08:17 100 MG Acetaminophen 650 mg Q6HP PRN PO 11/13/24 05:45 11/16/24 04:51 650 MG Nitroglycerin 0.4 mg Q5MINP PRN SL 11/13/24 05:45 Morphine Sulfate 2 mg Q30M PRN IV 11/13/24 05:45 Guaifenesin 200 mg Q4HP PRN PO 11/14/24 13:15 11/14/24 14:20 200 MG Albuterol 2.5 mg Q6HR NEB 11/15/24 18:00 11/17/24 19:38 2.5 MG Ipratropium [place] 0.5 mg Q6HR NEB 11/15/24 18:00 11/17/24 19:38 0.5 MG Polyethylene Glycol 17 gm DAILY PO 11/16/24 10:00 Pantoprazole Sodium 40 mg BID@0600,1700 PO 11/16/24 06:00 11/17/24 16:34 40 MG Bumetanide 1 mg BID IV 11/17/24 22:00 Iron Sucrose 110 ml @ 110 mls/hr DAILY@1200 IV 11/17/24 19:00 11/21/24 12:59 UNV Methylprednisolone Sodium Succinate 40 mg Q12HP IV 11/17/24 19:15 UNV objective Gen.: Patient lying in bed in no apparent distress. On supplemental oxygen. Head: Normocephalic, atraumatic. Eyes: EOMI/PERRLA. Ears: Normal hearing. Normal anatomy. Neck/trachea: Trachea midline, supple. Nose: Normal external anatomy. Mouth: Moist mucous membranes. Chest: Decreased air entry bilaterally. No wheezing or rhonchi. Cardiovascular: Positive S1, positive S2. Regular rate and rhythm. Abdomen: Positive bowel sounds in all 4 quadrants. Soft, non-tender, non- distended. : Deferred. Rectal: Deferred. Skin: Warm, dry. Intact. Extremities: 2+ radial pulses bilaterally. No lower extremity edema. Neuro: Awake, alert, oriented x3. No gross motor or sensory deficits. Cranial nerves II through XII intact. Gait not assessed. laboratory and microbiology Laboratory Tests 11/17/24 06:05 Test 11/17/24 06:05 Range/Units Serum Glucose 111 H 74-106 mg/dL Assessment/Plan Impression: Acute hypoxic respiratory failure Dependence on supplemental oxygen Asthma exacerbation Pulmonary edema Atelectasis Anemia Super morbid obesity, BMI 68.6 Events: Remains on supplemental oxygen, 2 LPM NC Taper O2 as tolerated Plan for spirometry Continue bronchodilators IV steroids q.12 hours Antitussive PRN cough. Incentive spirometry GI evaluation pending. Diurese with Bumex Monitor renal function. Monitor electrolytes. Supplement as necessary. Monitor ins and outs. Protonix for GI ppx Monitor hemoglobin - trended up to 8.4 g/dL Transfuse if less than 7.0 g/dL. CT abdomen-pelvis on 11/15/24 revealed: Small bilateral pleural effusions. Moderate to large volume stool within the colon most pronounced within the rectum. Colonic diverticular disease. Soft tissue edema/anasarca. Hepatic steatosis. Liver capsule nodular morphology, may represent sequela of cirrhosis. Distended IVC which can be seen with volume overload. Labs and imaging reviewed. Rest of plan as noted below. Plan: Supplemental oxygen Titrate to keep O2 sats above 92%. Continue bronchodilators, q.6 hours scheduled. Continue steroids Incentive spirometry Antitussive PRN cough Monitor hemoglobin Diurese to euvolemia Monitor renal function. Monitor electrolytes. Supplement as necessary. Monitor ins and outs. Diet and lifestyle modifications for weight reduction Obesity complicates all care GI/DVT prophylaxis. Prognosis: Guarded given patient's multiple co-morbidities. Rest of plan per hospitalist and other consultants. Thank you, ASHLEY Díaz, for allowing me to participate in this patient's care. Further recommendations will depend on the patient's clinical course. Please do not hesitate to contact me if you have any questions or concerns. This medical document was created using an electronic medical record system with [employer] dictation system. Although these documentations are being carefully reviewed, there may still be some phonetic and typographical changes. The errors are purely typographical, due to imperfection on the software program, and do not reflect any compromise in the patient's medical care. Dietary Evaluation Review Recommendations by RD: Decrease Calorie Intake Comments: 1) MVI 1 tab daily, ferrous sulfate 325mg BID 2) Check VitD level 3) Consider Cardiac diet 4) Refer CDE for weight management on DC Expected Outcomes/Goals: To meet 75% estimated needs FU 3-5 days Plan discussed with: Patient, Other (RN Teri) CC Plasma Assessment Blood Product Administration S: [id number] SOWMYA MCDONALD MD Nov 17, 2024 20:15
[2024-11-17] MEDS: IRON SUCROSE COMPLEX 110 ML IV SCH (21:50)
[2024-11-17] MEDS: methylPREDNISolone SOD SUCC 40 MG/ML VL IV SCH (21:51)
[2024-11-17] MEDS: BUMETANIDE 2.5mg/10ml (0.25 mg/ml) INJ IV SCH (21:51)
--- NOTE | 2024-11-17 23:00 | DVHPN2 ---
Progress Note - Dictate Date Seen: Nov 17, 2024 Medical Necessity Reason Pt with a Central, PICC or Fol: Yes The following are medically ne: Patterson Catheter Reason for patterson catheter: Strict I&O Subjective This 68-year-old female who is morbidly obese admitted symptomatic anemia S/P 1 unit PRBC. Her stool for occult blood is positive with the complaints of weakness tiredness Had colonoscopy a few years ago at the [facility]; She had some polyps never had an EGD after the gastric bypass in 2001 Patient complains of fluid retention increasing pedal edema and worsening of her lymphedema She denies any active GI bleeding at this time and she is tolerating a diet; she does complain of some mild epigastric tenderness Patient usually tends to be constipated and has a history of anemia related to gastric bypass, currently not taking any vitamin supplements Patient has had multiple bowel movements since admission vital signs Vital Sign Date Time Temp Pulse Resp B/P (MAP) Pulse Ox O2 Delivery O2 Flow Rate FiO2 11/17/24 21:51 117/51 11/17/24 21:00 98.1 100 20 94 98.1 11/17/24 19:38 Nasal Cannula 2.0 11/17/24 19:38 28 Total Intake and Output 11/16/24 11/16/24 11/17/24 14:59 22:59 06:59 Intake Total 500 ml 600 ml Output Total 4050 ml 6550 ml Balance -3550 ml -5950 ml medications Current Medications Medications Dose Ordered Sig/Winifred Route Start Time Stop Time Status Last Admin Dose Admin Atorvastatin Calcium 20 mg HS PO 11/13/24 22:00 11/17/24 21:51 20 MG Levothyroxine Sodium 25 mcg QAM@0600 PO 11/13/24 06:00 11/17/24 05:14 25 MCG Albuterol 2.5 mg Q4HPRN PRN NEB 11/13/24 05:45 11/15/24 14:23 2.5 MG Ipratropium [place] 0.5 mg Q4HPRN PRN NEB 11/13/24 05:45 11/15/24 14:23 0.5 MG Sodium Chloride 10 ml Q8HR IV 11/13/24 06:00 11/17/24 21:51 10 ML Acetaminophen/ Hydrocodone Bitart 1 tab Q4HP PRN PO 11/13/24 05:45 11/17/24 16:35 1 TAB Ondansetron HCl 4 mg Q4HP PRN IV 11/13/24 05:45 Docusate Sodium 100 mg BIDPRN PRN PO 11/13/24 05:45 11/15/24 08:17 100 MG Acetaminophen 650 mg Q6HP PRN PO 11/13/24 05:45 11/16/24 04:51 650 MG Nitroglycerin 0.4 mg Q5MINP PRN SL 11/13/24 05:45 Morphine Sulfate 2 mg Q30M PRN IV 11/13/24 05:45 Guaifenesin 200 mg Q4HP PRN PO 11/14/24 13:15 11/14/24 14:20 200 MG Albuterol 2.5 mg Q6HR NEB 11/15/24 18:00 11/17/24 19:38 2.5 MG Ipratropium [place] 0.5 mg Q6HR NEB 11/15/24 18:00 11/17/24 19:38 0.5 MG Polyethylene Glycol 17 gm DAILY PO 11/16/24 10:00 Pantoprazole Sodium 40 mg BID@0600,1700 PO 11/16/24 06:00 11/17/24 16:34 40 MG Bumetanide 1 mg BID IV 11/17/24 22:00 11/17/24 21:51 1 MG Iron Sucrose 110 ml @ 110 mls/hr DAILY@1200 IV 11/17/24 19:00 11/21/24 12:59 11/17/24 21:50 110 MLS/HR Methylprednisolone Sodium Succinate 40 mg Q12HP IV 11/17/24 22:00 11/17/24 21:51 40 MG objective Morbidly obese female patient lying in the bed, no acute distress General: Morbidly obese, mild pallor, mucosae are moist Cardiovascular: Regular S1 and S2. No murmurs, gallops or rubs. No JVD elevation. 3+ pedal edema Respiratory: On NC 2 L supplementation Abdomen: Soft, nontender, nondistended, obese normoactive bowel sounds, no rebound tenderness, no organomegaly, no masses MSK/skin: Mobilizes 4 limbs. Skin is dry and warm; extensive lymphedema laboratory and microbiology Laboratory Tests 11/17/24 06:05 Test 11/17/24 06:05 Range/Units Serum Glucose 111 H 74-106 mg/dL Problems(with codes): (1) Lymphedema (2) Generalized weakness (3) Fluid overload (4) Symptomatic anemia (5) Asthma exacerbation (6) Acute respiratory failure Prognosis Plan Continue supportive care Anemia is likely related to previous gastric bypass If the patient is agreeable and medically stable and recent tentative plan for an EGD on 11/19/2024 to rule out anastomotic ulcer Continue Protonix and Carafate and monitor labs I will follow up patient with you Dietary Evaluation Review Recommendations by RD: Decrease Calorie Intake Comments: 1) MVI 1 tab daily, ferrous sulfate 325mg BID 2) Check VitD level 3) Consider Cardiac diet 4) Refer CDE for weight management on DC Expected Outcomes/Goals: To meet 75% estimated needs FU 3-5 days Plan discussed with: Patient CC Plasma Assessment Blood Product Administration S: [id number] YOLANDA BURKS MD Nov 17, 2024 23:00
[2024-11-18] VITALS (12 sets, daily range): BP systolic 121–145; BP diastolic 56–67; PULSE 57–103; RESP 16–20; TEMP 97.7–99; O2SAT 94–100
[2024-11-18 05:53] LABS: Hematocrit 29.2 % (36.0-46.0); Hemoglobin 8.9 g/dL (12.2-16.2); Mean Corpuscular Hemoglobin 22.2 pg (28.0-32.0); Mean Corpuscular Volume 72.5 fL (80.0-100.0); Nucleated Red Blood Cells % 0.1 %
[2024-11-18 06:02] LABS: Alanine Aminotransferase 23 U/L (7-40); Albumin 3.3 g/dL (3.2-4.8); Alkaline Phosphatase 83 U/L (46-116); Anion Gap 7 (5-15); BUN/Creatinine Ratio 30.3 (10.0-20.0); Calcium 9.1 mg/dL (8.7-10.4); Chloride 102 mmol/L (98-107); Potassium 4.1 mmol/L (3.5-5.1); Sodium 143 mmol/L (136-145)
[2024-11-18 06:03] LABS: Bilirubin, Total 0.4 mg/dL (0.2-1.0)
[2024-11-18 06:13] LABS: Blood Urea Nitrogen 33 mg/dL (9-23); Carbon Dioxide 34 mmol/L (20-31); Glucose 124 mg/dL (74-106); Total Protein 5.1 g/dL (5.7-8.2)
--- NOTE | 2024-11-18 10:49 | DVHPN2 ---
Progress Note Date Seen: Nov 18, 2024 Resident Creating Document: NORMA ABERNATHY RESIDENT Medical Necessity Reason Pt with a Central, PICC or Fol: Yes The following are medically ne: Patterson Catheter Reason for patterson catheter: Strict I&O Subjective Review of Systems The patient is a 64-year-old female morbidly obese with multiple past medical history including arthritis, asthma, anemia, thyroid disease, and hypertension who presented to [facility] ED with complaint of shortness of breaths. Patient reports she has been experiencing shortness of breaths associated with generalized weakness, dry cough, wheezing, getting worse that prompted this visit. She states she has used her home nebulizer and inhaler without relief. Patient also notes worsening lower extremity edema for the past 3 weeks, with edema now extending to her torso and upper extremities. She reports she has been seen by a endoscopy specialty technician in the past, underwent workup including Holter monitoring, and was told there was no heart disease. Nephrology consulted for hyperkalemia 11/15-Patient seen and examined at bedside. Chocolate and jello seen at bedside, patient was counseled regarding healthy diet and low-potassium diet. 11/16-patient seen and examined at the bedside. Urine output 4850 cc in 24 hours. Continue Bumex. Stool occult is positive. One packed RBC pending. 11/17-patient seen and examined, urine output 31257 cc in 24 hours. Continue Bumex. Seven and-P 20 mg a at bedside. Urine output 950 cc. IV iron daily started. Solu-Medrol started by quality measurement specialist. Plan for possible EGD tomorrow. Objective vital signs Vital Sign Date Time Temp Pulse Resp B/P (MAP) Pulse Ox O2 Delivery O2 Flow Rate FiO2 11/18/24 10:02 142/64 11/18/24 08:30 97.8 100 17 98 97.8 11/18/24 08:00 Nasal Cannula* 2 28 Total Intake and Output 11/17/24 11/17/24 11/18/24 15:00 23:00 07:00 Intake Total 1320 ml 850 ml Output Total 6200 ml 2850 ml Balance -4880 ml -2000 ml medications Current Medications Medications Dose Ordered Sig/Winifred Route Start Time Stop Time Status Last Admin Dose Admin Atorvastatin Calcium 20 mg HS PO 11/13/24 22:00 11/17/24 21:51 20 MG Levothyroxine Sodium 25 mcg QAM@0600 PO 11/13/24 06:00 11/18/24 05:46 25 MCG Albuterol 2.5 mg Q4HPRN PRN NEB 11/13/24 05:45 11/15/24 14:23 2.5 MG Ipratropium [place] 0.5 mg Q4HPRN PRN NEB 11/13/24 05:45 11/15/24 14:23 0.5 MG Sodium Chloride 10 ml Q8HR IV 11/13/24 06:00 11/18/24 05:46 10 ML Acetaminophen/ Hydrocodone Bitart 1 tab Q4HP PRN PO 11/13/24 05:45 11/18/24 10:03 1 TAB Ondansetron HCl 4 mg Q4HP PRN IV 11/13/24 05:45 Docusate Sodium 100 mg BIDPRN PRN PO 11/13/24 05:45 11/15/24 08:17 100 MG Acetaminophen 650 mg Q6HP PRN PO 11/13/24 05:45 11/18/24 01:07 650 MG Nitroglycerin 0.4 mg Q5MINP PRN SL 11/13/24 05:45 Morphine Sulfate 2 mg Q30M PRN IV 11/13/24 05:45 Guaifenesin 200 mg Q4HP PRN PO 11/14/24 13:15 11/14/24 14:20 200 MG Albuterol 2.5 mg Q6HR NEB 11/15/24 18:00 11/17/24 23:48 2.5 MG Ipratropium [place] 0.5 mg Q6HR NEB 11/15/24 18:00 11/17/24 23:47 0.5 MG Polyethylene Glycol 17 gm DAILY PO 11/16/24 10:00 Pantoprazole Sodium 40 mg BID@0600,1700 PO 11/16/24 06:00 11/18/24 05:46 40 MG Bumetanide 1 mg BID IV 11/17/24 22:00 11/18/24 10:02 1 MG Iron Sucrose 110 ml @ 110 mls/hr DAILY@1200 IV 11/17/24 19:00 11/21/24 12:59 11/17/24 21:50 110 MLS/HR Methylprednisolone Sodium Succinate 40 mg Q12HP IV 11/17/24 22:00 7/10/25 10:03 40 MG Examination Morbidly obese female patient lying in the bed, no acute distress General: Generalized anasarca. Morbidly obese, pillar, mucosae are moist Cardiovascular: Regular S1 and S2. No murmurs, gallops or rubs. No JVD elevation. 3+ pedal edema Respiratory: On NC 2 L supplementation Abdomen: Soft, nontender, nondistended, normoactive bowel sounds, no rebound tenderness, no organomegaly, no masses Genitourinary: Deferred MSK/skin: Mobilizes 4 limbs. Skin is dry and warm Neurological: No motor, no sensitive deficits, normal speech. Pupils are isocoric and reactive. Psych/Mental Status: A/Ox3 laboratory and microbiology Laboratory Tests 11/18/24 04:47 Test 11/18/24 04:47 Range/Units Serum Glucose 124 H 74-106 mg/dL Labs and/or images reviewed: Labs reviewed by me, Image(s) reviewed by me Problem List/Assessment/Plan Problem List/Assessment/Plan Hyperkalemia Pulmonary edema Acute hypoxic respiratory failure secondary to above Acute microcytic anemia questionable blood loss status post blood transfusion x2 Iron-deficiency anemia ? Liver cirrhosis Diverticulosis Small bilateral pleural effusion Morbid obesity History of gastric bypass Chest CT shows moderate to large stool volume within the colon, small bilateral pleural effusion, hepatic steatosis, liver capsule is nodular may represent cirrhosis. Plan: Status post 2 packed RBC transfusion, hemoglobin stable Potassium stable, completed 6 doses of Lokelma Holding off Bumex at this time given slightly increased creatinine. Patient will benefit from 1 mg Bumex once daily on discharge. Started IV iron daily 11/17 NS 500 bolus to prevent contrast induced nephropathy Low-potassium diet advised Avoid preserved and processed food high in potassium Discontinue potassium supplementation-patient takes KCl tablets at home We will continue to monitor Monitor H&H Physical therapy advised Plan discussed with patient, at bedside in which all questions have been answered Case discussed with Dr. Franco Plan discussed with: Patient My Orders My Orders Orders - NORMA ABERNATHY RESIDENT Procedure Category Date Status Time Bumetanide Injection PHA 11/17/24 In Process (Bumex Injection) 22:00 Dietary Evaluation Review Recommendations by RD: Decrease Calorie Intake Comments: 1) MVI 1 tab daily, ferrous sulfate 325mg BID 2) Check VitD level 3) Consider Cardiac diet 4) Refer CDE for weight management on DC Expected Outcomes/Goals: To meet 75% estimated needs FU 3-5 days CC Plasma Assessment Blood Product Administration S: [id number] NORMA ABERNATHY Nov 18, 2024 10:49 CY FRANCO MD Nov 18, 2024 12:59
--- NOTE | 2024-11-18 11:47 | DVHPN2 ---
Reviewed: Care Plan, H&P, Labs, Medications, Previous Orders, Radiology Changes from previous H/P or p: No Changes Eyes: No Pain, No Vision change, No Conjunctivae inflammation, No Eyelid inflammation, No Other, No Redness ENT: No Ear pain, No Ear discharge, No Nose pain, No Nose discharge, No Nose congestion, No Mouth pain, No Mouth swelling, No Throat pain, No Throat swelling, No Other Cardiovascular: No Chest Pain, No Palpitations, No Orthopnea, No Paroxysmal Noc. Dyspnea, No Edema, No Lt Headedness, No Other Respiratory: Cough; No Dry; Shortness of breath, SOB with excertion, Wheezing; No Hemoptysis, No Pleuritic Pain, No Sputum; Other (SOB at rest) Gastrointestinal: No Nausea, No Vomiting, No Abdominal Pain, No Diarrhea, No Constipation, No Melena, No Hematochezia, No Other Genitourinary: No Dysuria, No Frequency, No Incontinence, No Hematuria, No Retention, No Other Musculoskeletal: No other, No neck pain, No shoulder pain, No arm pain, No back pain, No hand pain, No leg pain, No foot pain Skin: No Rash, No Lesions, No Jaundice, No Bruising, No Other Objective Vitals Vital Signs Date Time Temp Pulse Resp B/P (MAP) Pulse Ox O2 Delivery O2 Flow Rate FiO2 11/18/24 10:02 142/64 11/18/24 08:30 97.8 100 17 98 97.8 11/18/24 08:00 Nasal Cannula* 2 28 Intake/Output Intake and Output 11/18/24 07:00 Intake Total 2170 ml Output Total 9050 ml Balance -6880 ml Intake Oral 2170 ml Output Urine Total 9050 ml # Bowel Movements 5 Medications Current Medications Medications Dose Ordered Sig/Winifred Route Start Time Stop Time Status Last Admin Dose Admin Atorvastatin Calcium 20 mg HS PO 11/13/24 22:00 11/17/24 21:51 20 MG Levothyroxine Sodium 25 mcg QAM@0600 PO 11/13/24 06:00 11/18/24 05:46 25 MCG Albuterol 2.5 mg Q4HPRN PRN NEB 11/13/24 05:45 11/15/24 14:23 2.5 MG Ipratropium [place] 0.5 mg Q4HPRN PRN NEB 11/13/24 05:45 7/7/25 14:23 0.5 MG Sodium Chloride 10 ml Q8HR IV 11/13/24 06:00 11/18/24 05:46 10 ML Acetaminophen/ Hydrocodone Bitart 1 tab Q4HP PRN PO 11/13/24 05:45 11/18/24 10:03 1 TAB Ondansetron HCl 4 mg Q4HP PRN IV 11/13/24 05:45 Docusate Sodium 100 mg BIDPRN PRN PO 11/13/24 05:45 11/15/24 08:17 100 MG Acetaminophen 650 mg Q6HP PRN PO 11/13/24 05:45 11/18/24 01:07 650 MG Nitroglycerin 0.4 mg Q5MINP PRN SL 11/13/24 05:45 Morphine Sulfate 2 mg Q30M PRN IV 11/13/24 05:45 Guaifenesin 200 mg Q4HP PRN PO 11/14/24 13:15 11/14/24 14:20 200 MG Albuterol 2.5 mg Q6HR NEB 11/15/24 18:00 11/17/24 23:48 2.5 MG Ipratropium [place] 0.5 mg Q6HR NEB 11/15/24 18:00 11/17/24 23:47 0.5 MG Polyethylene Glycol 17 gm DAILY PO 11/16/24 10:00 Pantoprazole Sodium 40 mg BID@0600,1700 PO 11/16/24 06:00 11/18/24 05:46 40 MG Iron Sucrose 110 ml @ 110 mls/hr DAILY@1200 IV 11/17/24 19:00 11/21/24 12:59 11/17/24 21:50 110 MLS/HR Methylprednisolone Sodium Succinate 40 mg Q12HP IV 11/17/24 22:00 11/18/24 10:03 40 MG Laboratory Results Laboratory Tests 11/18/24 04:47 Chemistry Test 11/18/24 04:47 Albumin 3.3 g/dL (3.2-4.8) Calcium Level 9.1 mg/dL (8.7-10.4) Total Protein 5.1 g/dL (5.7-8.2) L LFT Test 11/18/24 04:47 Alanine Aminotransferase (ALT) 23 U/L (7-40) Alkaline Phosphatase 83 U/L (46-116) Aspartate Amino Transferase (AST) 30 U/L (13-40) Total Bilirubin 0.4 mg/dL (0.2-1.0) Urinalysis Test 11/13/24 04:20 Urine Color Light-yellow (Yellow) Urine Clarity Clear (Clear) Urine pH 5.5 (5.0-9.0) Urine Specific [place] 1.021 (1.001-1.035) Urine Protein Negative (Negative) Urine Ketones Negative (Negative) Urine Blood Negative /uL (Negative) Urine Nitrite 1+ (Negative) H Urine Bilirubin Negative (Negative) Urine Urobilinogen Normal mg/dL (Negative) Urine Leukocyte Esterase Negative /uL (Negative) Urine RBC <1 /hpf (0 - 4) Urine Microscopic WBC < 1 /HPF (0-5) Urine Squamous Epithelial Cells Few /hpf (<5) Urine Bacteria Few /hpf (None Seen) H Urine Yeast (Budding) Occasional /hpf (None Urine Glucose Normal mg/dL (Normal) Labs and/or images reviewed: Labs reviewed by me, Image(s) reviewed by me Assessment/Plan Assessment/Plan Severe symptomatic anemia hemoglobin 6.2 improved to 8.3 after 3 units RBC transfusion, on iron transfusion Acute hypoxic respiratory failure: Oxygen by nasal cannula Acute asthma exacerbation: Albuterol Atrovent Solu-Medrol Acute COPD exacerbation: Consult for Dr. Duque appreciated Acute generalized weakness Chronic anemia Arthritis Chronic kidney disease GERD Hypertension Hyperlipidemia Hypothyroidism Lymphedema CT abdomen pelvis with IV contrast negative for any acute pathology Morbid obesity History of gastric bypass 2002 Hiatal hernia repair 2003 History of smoking for 20 years quit in 1998 Previous hospitalizations in [facility] and [facility] History of bilateral inguinal hernia Obstructive Sleep apnea on CPAP History of cholecystectomy DVT ruled out Acute Hyperkalemia potassium 5.3: Consult for Slime Plant Operator appreciated Time spent 60 minutes ED at bedside GI Dr.N Gilmore planning for EGD on 11/19/24 Patient is full code Plan discussed with: Patient My Orders Orders - TANO FAJARDO MD Procedure Category Date Status Time Notify Provider NOTICE 11/17/24 Transmitted Malnutrition 13:31 Date of Service: Nov 18, 2024 Billing Provider: TANO FAJARDO MD Common Visit Codes: [id number] INP/OBS CARE(HIGH) TANO FAJARDO MD Nov 18, 2024 11:47
[2024-11-18] MEDS ORDERED: BUME2TAB5 PO (11:57)
[2024-11-18] MEDS ORDERED: BUMETANIDE 1mg/4ml VIAL (0.25mg/ml) IV SCH (18:00)
--- NOTE | 2024-11-18 22:53 | DVHPN2 ---
Progress Note - Dictate Date Seen: Nov 18, 2024 Medical Necessity Reason Pt with a Central, PICC or Fol: Yes The following are medically ne: Patterson Catheter Reason for patterson catheter: Strict I&O Subjective This 68-year-old female who is morbidly obese admitted symptomatic anemia S/P 1 unit PRBC. Her stool for occult blood is positive with the complaints of weakness tiredness Had colonoscopy a few years ago at the [facility]; She had some polyps never had an EGD after the gastric bypass in 2001 Patient is agreeable to having an endoscopic test for evaluation of her upper GI tract and rule out anastomotic ulcer Patient complains of fluid retention increasing pedal edema and worsening of her lymphedema She denies any active GI bleeding at this time and she is tolerating a diet; she does complain of some mild epigastric tenderness Patient usually tends to be constipated and has a history of anemia related to gastric bypass, currently not taking any vitamin supplements Patient has had multiple bowel movements since admission vital signs Vital Sign Date Time Temp Pulse Resp B/P (MAP) Pulse Ox O2 Delivery O2 Flow Rate FiO2 11/18/24 21:00 98.5 85 18 121/56 (77) 96 98.5 11/18/24 19:29 Nasal Cannula 3.0 11/18/24 19:29 32 Total Intake and Output 11/17/24 11/17/24 11/18/24 15:00 23:00 07:00 Intake Total 1320 ml 850 ml Output Total 6200 ml 2850 ml Balance -4880 ml -2000 ml medications Current Medications Medications Dose Ordered Sig/Winifred Route Start Time Stop Time Status Last Admin Dose Admin Atorvastatin Calcium 20 mg HS PO 11/13/24 22:00 11/18/24 21:07 20 MG Levothyroxine Sodium 25 mcg QAM@0600 PO 11/13/24 06:00 11/18/24 05:46 25 MCG Albuterol 2.5 mg Q4HPRN PRN NEB 11/13/24 05:45 11/15/24 14:23 2.5 MG Ipratropium [place] 0.5 mg Q4HPRN PRN NEB 11/13/24 05:45 11/15/24 14:23 0.5 MG Sodium Chloride 10 ml Q8HR IV 11/13/24 06:00 11/18/24 13:57 10 ML Acetaminophen/ Hydrocodone Bitart 1 tab Q4HP PRN PO 11/13/24 05:45 11/18/24 21:09 1 TAB Ondansetron HCl 4 mg Q4HP PRN IV 11/13/24 05:45 Docusate Sodium 100 mg BIDPRN PRN PO 11/13/24 05:45 11/15/24 08:17 100 MG Acetaminophen 650 mg Q6HP PRN PO 11/13/24 05:45 11/18/24 01:07 650 MG Nitroglycerin 0.4 mg Q5MINP PRN SL 11/13/24 05:45 Morphine Sulfate 2 mg Q30M PRN IV 11/13/24 05:45 Guaifenesin 200 mg Q4HP PRN PO 11/14/24 13:15 11/14/24 14:20 200 MG Albuterol 2.5 mg Q6HR NEB 11/15/24 18:00 11/18/24 19:29 2.5 MG Ipratropium [place] 0.5 mg Q6HR NEB 11/15/24 18:00 11/18/24 19:29 0.5 MG Polyethylene Glycol 17 gm DAILY PO 11/16/24 10:00 Pantoprazole Sodium 40 mg BID@0600,1700 PO 11/16/24 06:00 11/18/24 16:08 40 MG Iron Sucrose 110 ml @ 110 mls/hr DAILY@1200 IV 11/17/24 19:00 11/21/24 12:59 11/18/24 11:56 110 MLS/HR Bumetanide 1 mg BIDD IV 11/18/24 18:00 Hold Zolpidem Tartrate 10 mg HSPRN PRN PO 11/18/24 11:45 Prednisone 20 mg DAILY PO 11/19/24 18:00 11/22/24 17:59 objective Morbidly obese female patient lying in the bed, no acute distress General: Morbidly obese, mild pallor, mucosae are moist Cardiovascular: Regular S1 and S2. No murmurs, gallops or rubs. No JVD elevation. 3+ pedal edema Respiratory: On NC 2 L supplementation Abdomen: Soft, nontender, nondistended, obese normoactive bowel sounds, no rebound tenderness, no organomegaly, no masses MSK/skin: Mobilizes 4 limbs. Skin is dry and warm; extensive lymphedema laboratory and microbiology Laboratory Tests 7/10/25 04:47 Test 11/18/24 04:47 Range/Units Serum Glucose 124 H 74-106 mg/dL Problems(with codes): (1) Lymphedema (2) Fluid overload (3) Generalized weakness (4) Symptomatic anemia (5) Asthma exacerbation (6) Acute respiratory failure Prognosis Plan Keep NPO after midnight Possible EGD on 11/19/2024 if cleared by anesthesia Continue Protonix and Carafate DC aspirin NSAIDs smoking alcohol Dietary Evaluation Review Recommendations by RD: Decrease Calorie Intake Comments: 1) MVI 1 tab daily, ferrous sulfate 325mg BID 2) Check VitD level 3) Consider Cardiac diet 4) Refer CDE for weight management on DC Expected Outcomes/Goals: To meet 75% estimated needs FU 3-5 days Plan discussed with: Patient CC Plasma Assessment Blood Product Administration S: [id number] YOLANDA BURKS MD Nov 18, 2024 22:53
[2024-11-18] MEDS: ZOLPIDEM TARTRATE 5 MG TAB PO PRN (23:23)
--- NOTE | 2024-11-18 23:46 | DVHPN2 ---
Progress Note - Dictate Date Seen: Nov 18, 2024 Medical Necessity Reason Pt with a Central, PICC or Fol: Yes The following are medically ne: Patterson Catheter Reason for patterson catheter: Strict I&O Subjective Patient seen and examined at bedside. Remains on supplemental oxygen Overnight events reviewed. [facility] vital signs Vital Sign Date Time Temp Pulse Resp B/P (MAP) Pulse Ox O2 Delivery O2 Flow Rate FiO2 11/18/24 21:00 98.5 85 18 121/56 (77) 96 98.5 11/18/24 20:00 Nasal Cannula* 2 28 Total Intake and Output 11/17/24 11/17/24 11/18/24 15:00 23:00 07:00 Intake Total 1320 ml 850 ml Output Total 6200 ml 2850 ml Balance -4880 ml -2000 ml medications Current Medications Medications Dose Ordered Sig/[place]ifred Route Start Time Stop Time Status Last Admin Dose Admin Atorvastatin Calcium 20 mg HS PO 11/13/24 22:00 11/18/24 21:07 20 MG Levothyroxine Sodium 25 mcg QAM@0600 PO 11/13/24 06:00 11/18/24 05:46 25 MCG Albuterol 2.5 mg Q4HPRN PRN NEB 11/13/24 05:45 11/15/24 14:23 2.5 MG Ipratropium [place] 0.5 mg Q4HPRN PRN NEB 11/13/24 05:45 11/15/24 14:23 0.5 MG Sodium Chloride 10 ml Q8HR IV 11/13/24 06:00 11/18/24 13:57 10 ML Acetaminophen/ Hydrocodone Bitart 1 tab Q4HP PRN PO 11/13/24 05:45 11/18/24 21:09 1 TAB Ondansetron HCl 4 mg Q4HP PRN IV 11/13/24 05:45 Docusate Sodium 100 mg BIDPRN PRN PO 11/13/24 05:45 11/15/24 08:17 100 MG Acetaminophen 650 mg Q6HP PRN PO 11/13/24 05:45 11/18/24 01:07 650 MG Nitroglycerin 0.4 mg Q5MINP PRN SL 11/13/24 05:45 Morphine Sulfate 2 mg Q30M PRN IV 11/13/24 05:45 Guaifenesin 200 mg Q4HP PRN PO 11/14/24 13:15 11/14/24 14:20 200 MG Albuterol 2.5 mg Q6HR NEB 11/15/24 18:00 11/18/24 19:29 2.5 MG Ipratropium [place] 0.5 mg Q6HR NEB 11/15/24 18:00 11/18/24 19:29 0.5 MG Polyethylene Glycol 17 gm DAILY PO 11/16/24 10:00 Pantoprazole Sodium 40 mg BID@0600,1700 PO 11/16/24 06:00 11/18/24 16:08 40 MG Iron Sucrose 110 ml @ 110 mls/hr DAILY@1200 IV 11/17/24 19:00 11/21/24 12:59 11/18/24 11:56 110 MLS/HR Bumetanide 1 mg BIDD IV 11/18/24 18:00 Hold Zolpidem Tartrate 10 mg HSPRN PRN PO 11/18/24 11:45 11/18/24 23:23 10 MG Prednisone 20 mg DAILY PO 11/19/24 18:00 11/22/24 17:59 objective Gen.: Patient lying in bed in no apparent distress. On supplemental oxygen. Head: Normocephalic, atraumatic. Eyes: EOMI/PERRLA. Ears: Normal hearing. Normal anatomy. Neck/trachea: Trachea midline, supple. Nose: Normal external anatomy. Mouth: Moist mucous membranes. Chest: Decreased air entry bilaterally. No wheezing or rhonchi. Cardiovascular: Positive S1, positive S2. Regular rate and rhythm. Abdomen: Positive bowel sounds in all 4 quadrants. Soft, non-tender, non- distended. : Deferred. Rectal: Deferred. Skin: Warm, dry. Intact. Extremities: 2+ radial pulses bilaterally. No lower extremity edema. Neuro: Awake, alert, oriented x3. No gross motor or sensory deficits. Cranial nerves II through XII intact. Gait not assessed. laboratory and microbiology Laboratory Tests 11/18/24 04:47 Test 11/18/24 04:47 Range/Units Serum Glucose 124 H 74-106 mg/dL Assessment/Plan Impression: Acute hypoxic respiratory failure Dependence on supplemental oxygen Asthma exacerbation Pulmonary edema Atelectasis Anemia Super morbid obesity, BMI 68.6 Events: Remains on supplemental oxygen, 2 LPM NC Taper O2 as tolerated Continue bronchodilators Continue steroids - prednisone 20 mg PO BID for 3 days Stop Solu-Medrol Antitussive PRN cough. Incentive spirometry Patient to be NPO at midnight Plan for EGD in the AM. GI recommendations appreciated. Bumex was held Nephrology recommendations appreciated. Monitor renal function. Monitor electrolytes. Supplement as necessary. Monitor ins and outs. Protonix for GI ppx Monitor hemoglobin - stable at 8.9 g/dL Transfuse if less than 7.0 g/dL. Plan for spirometry testing. CT abdomen-pelvis on 11/15/24 revealed: Small bilateral pleural effusions. Moderate to large volume stool within the colon most pronounced within the rectum. Colonic diverticular disease. Soft tissue edema/anasarca. Hepatic steatosis. Liver capsule nodular morphology, may represent sequela of cirrhosis. Distended IVC which can be seen with volume overload. Labs and imaging reviewed. Rest of plan as noted below. Plan: Supplemental oxygen Titrate to keep O2 sats above 92%. Continue bronchodilators, q.6 hours scheduled. Continue steroids Incentive spirometry Antitussive PRN cough Monitor hemoglobin Monitor renal function. Monitor electrolytes. Supplement as necessary. Monitor ins and outs. Diet and lifestyle modifications for weight reduction Obesity complicates all care GI/DVT prophylaxis. Prognosis: Guarded given patient's multiple co-morbidities. Rest of plan per hospitalist and other consultants. Thank you, ASHLEY Díaz, for allowing me to participate in this patient's care. Further recommendations will depend on the patient's clinical course. Please do not hesitate to contact me if you have any questions or concerns. This medical document was created using an electronic medical record system with [employer] dictation system. Although these documentations are being carefully reviewed, there may still be some phonetic and typographical changes. The errors are purely typographical, due to imperfection on the software program, and do not reflect any compromise in the patient's medical care. Dietary Evaluation Review Recommendations by RD: Decrease Calorie Intake Comments: 1) MVI 1 tab daily, ferrous sulfate 325mg BID 2) Check VitD level 3) Consider Cardiac diet 4) Refer CDE for weight management on DC Expected Outcomes/Goals: To meet 75% estimated needs FU 3-5 days Plan discussed with: Patient, Other (RN Teri) CC Plasma Assessment Blood Product Administration S: [id number] SOWMYA MCDONALD MD Nov 18, 2024 23:46
[2024-11-19] VITALS (16 sets, daily range): BP systolic 96–140; BP diastolic 48–70; PULSE 73–130; RESP 15–19; TEMP 97.8–99.4; O2SAT 91–99
[2024-11-19 00:35] LABS: INR 1.15 (0.9-1.15); Partial Thromboplastin Time 23.7 SEC (24.5-34.5); Prothrombin Time 12.0 sec (9.3-11.8)
[2024-11-19 07:19] LABS: Hemoglobin 8.1 g/dL (12.2-16.2)
[2024-11-19 07:20] LABS: Alanine Aminotransferase 22 U/L (7-40); Alkaline Phosphatase 67 U/L (46-116); Anion Gap 5 (5-15); BUN/Creatinine Ratio 34.5 (10.0-20.0); Chloride 100 mmol/L (98-107); Glucose 88 mg/dL (74-106); Potassium 3.7 mmol/L (3.5-5.1); Sodium 142 mmol/L (136-145)
[2024-11-19 07:21] LABS: Bilirubin, Total 0.4 mg/dL (0.2-1.0)
[2024-11-19 07:25] LABS: Albumin 2.8 g/dL (3.2-4.8); Blood Urea Nitrogen 29 mg/dL (9-23); Calcium 8.0 mg/dL (8.7-10.4); Carbon Dioxide 37 mmol/L (20-31); Hematocrit 26.9 % (36.0-46.0); Mean Corpuscular Hemoglobin 22.0 pg (28.0-32.0); Mean Corpuscular Volume 73.4 fL (80.0-100.0); Nucleated Red Blood Cells % 0.2 %; Total Protein 4.5 g/dL (5.7-8.2)
[2024-11-19] MEDS: MORPHINE SULFATE INJ 2 MG/ml SYRG IV ONE (10:11)
--- NOTE | 2024-11-19 10:51 | DVHPN2 ---
Reviewed: Care Plan, H&P, Labs, Medications, Previous Orders, Radiology Changes from previous H/P or p: No Changes Eyes: No Pain, No Vision change, No Conjunctivae inflammation, No Eyelid inflammation, No Other, No Redness ENT: No Ear pain, No Ear discharge, No Nose pain, No Nose discharge, No Nose congestion, No Mouth pain, No Mouth swelling, No Throat pain, No Throat swelling, No Other Cardiovascular: No Chest Pain, No Palpitations, No Orthopnea, No Paroxysmal Noc. Dyspnea, No Edema, No Lt Headedness, No Other Respiratory: Cough, Shortness of breath, SOB with excertion, Wheezing, Other Gastrointestinal: No Nausea, No Vomiting, No Abdominal Pain, No Diarrhea, No Constipation, No Melena, No Hematochezia, No Other Genitourinary: No Dysuria, No Frequency, No Incontinence, No Hematuria, No Retention, No Other Musculoskeletal: No other, No neck pain, No shoulder pain, No arm pain, No back pain, No hand pain, No leg pain, No foot pain Skin: No Rash, No Lesions, No Jaundice, No Bruising, No Other Objective Vitals Vital Signs Date Time Temp Pulse Resp B/P (MAP) Pulse Ox O2 Delivery O2 Flow Rate FiO2 11/19/24 10:11 95 19 132/45 11/19/24 09:00 97.8 94 97.8 11/19/24 06:55 Nasal Cannula 3.0 11/19/24 06:55 32 Intake/Output Intake and Output 11/19/24 07:00 Intake Total 1690 ml Output Total 4700 ml Balance -3010 ml Intake Oral 1580 ml IV Total 110 ml Output Urine Total 4700 ml # Bowel Movements 2 Medications Current Medications Medications Dose Ordered Sig/Winifred Route Start Time Stop Time Status Last Admin Dose Admin Atorvastatin Calcium 20 mg HS PO 11/13/24 22:00 11/18/24 21:07 20 MG Levothyroxine Sodium 25 mcg QAM@0600 PO 11/13/24 06:00 11/18/24 05:46 25 MCG Albuterol 2.5 mg Q4HPRN PRN NEB 11/13/24 05:45 11/15/24 14:23 2.5 MG Ipratropium [place] 0.5 mg Q4HPRN PRN NEB 11/13/24 05:45 11/15/24 14:23 0.5 MG Sodium Chloride 10 ml Q8HR IV 11/13/24 06:00 11/19/24 06:08 10 ML Acetaminophen/ Hydrocodone Bitart 1 tab Q4HP PRN PO 11/13/24 05:45 11/19/24 02:51 1 TAB Ondansetron HCl 4 mg Q4HP PRN IV 11/13/24 05:45 Docusate Sodium 100 mg BIDPRN PRN PO 11/13/24 05:45 11/15/24 08:17 100 MG Acetaminophen 650 mg Q6HP PRN PO 11/13/24 05:45 11/18/24 01:07 650 MG Nitroglycerin 0.4 mg Q5MINP PRN SL 11/13/24 05:45 Morphine Sulfate 2 mg Q30M PRN IV 11/13/24 05:45 Guaifenesin 200 mg Q4HP PRN PO 11/14/24 13:15 11/14/24 14:20 200 MG Albuterol 2.5 mg Q6HR NEB 11/15/24 18:00 11/19/24 06:55 2.5 MG Ipratropium [place] 0.5 mg Q6HR NEB 11/15/24 18:00 11/19/24 06:55 0.5 MG Polyethylene Glycol 17 gm DAILY PO 11/16/24 10:00 Pantoprazole Sodium 40 mg BID@0600,1700 PO 11/16/24 06:00 11/18/24 16:08 40 MG Iron Sucrose 110 ml @ 110 mls/hr DAILY@1200 IV 11/17/24 19:00 11/21/24 12:59 11/18/24 11:56 110 MLS/HR Zolpidem Tartrate 10 mg HSPRN PRN PO 11/18/24 11:45 11/18/24 23:23 10 MG Prednisone 20 mg DAILY PO 11/19/24 18:00 11/22/24 17:59 Laboratory Results Laboratory Tests 11/19/24 06:14 Chemistry Test 11/19/24 06:14 Albumin 2.8 g/dL (3.2-4.8) L Calcium Level 8.0 mg/dL (8.7-10.4) L Total Protein 4.5 g/dL (5.7-8.2) L Coagulation Test 11/18/24 23:59 Prothrombin Time 12.0 sec (9.3-11.8) H Prothrombin Time INR 1.15 (0.9-1.15) Activated Partial Thromboplast Time 23.7 SEC (24.5-34.5) L LFT Test 11/19/24 06:14 Alanine Aminotransferase (ALT) 22 U/L (7-40) Alkaline Phosphatase 67 U/L (46-116) Aspartate Amino Transferase (AST) 32 U/L (13-40) Total Bilirubin 0.4 mg/dL (0.2-1.0) Urinalysis Test 11/13/24 04:20 Urine Color Light-yellow (Yellow) Urine Clarity Clear (Clear) Urine pH 5.5 (5.0-9.0) Urine Specific [place] 1.021 (1.001-1.035) Urine Protein Negative (Negative) Urine Ketones Negative (Negative) Urine Blood Negative /uL (Negative) Urine Nitrite 1+ (Negative) H Urine Bilirubin Negative (Negative) Urine Urobilinogen Normal mg/dL (Negative) Urine Leukocyte Esterase Negative /uL (Negative) Urine RBC <1 /hpf (0 - 4) Urine Microscopic WBC < 1 /HPF (0-5) Urine Squamous Epithelial Cells Few /hpf (<5) Urine Bacteria Few /hpf (None Seen) H Urine Yeast (Budding) Occasional /hpf (None Urine Glucose Normal mg/dL (Normal) Labs and/or images reviewed: Labs reviewed by me, Image(s) reviewed by me Assessment/Plan Assessment/Plan Severe symptomatic anemia hemoglobin 6.2 improved to 8.3 after 3 units RBC transfusion, now on iron transfusion, getting EGD by Dr. Rosaline Gilmore on 11/19/2024 Acute hypoxic respiratory failure: Oxygen by nasal cannula Acute asthma exacerbation: Albuterol Atrovent Solu-Medrol Acute COPD exacerbation: Consult for Dr. Duque appreciated Acute generalized weakness Chronic anemia Arthritis Chronic kidney disease GERD Hypertension Hyperlipidemia Hypothyroidism Lymphedema CT abdomen pelvis with IV contrast negative for any acute pathology Morbid obesity History of gastric bypass 2003 Hiatal hernia repair 2003 History of smoking for 20 years quit in 1998 Previous hospitalizations in [facility] and [facility] History of bilateral inguinal hernia Obstructive Sleep apnea on CPAP History of cholecystectomy DVT ruled out Acute Hyperkalemia potassium 5.3: Consult for Child Welfare Specialist appreciated Time spent 60 minutes Patient is full code Plan discussed with: Patient My Orders Orders - TANO FAJARDO MD Procedure Category Date Status Time Zolpidem Tartrate PHA 11/18/24 In Process (Ambien) 11:45 Communication Order ORDERS 11/19/24 Transmitted 09:11 Date of Service: Nov 19, 2024 Billing Provider: TANO FAJARDO MD Common Visit Codes: [id number] CARE 30-74 MIN TANO FAJAROD MD Nov 19, 2024 10:51
--- NOTE | 2024-11-19 12:15 | DVHPN2 ---
Progress Note Date Seen: Nov 19, 2024 Resident Creating Document: NORMA ABERNATHY RESIDENT Medical Necessity Reason Pt with a Central, PICC or Fol: Yes The following are medically ne: Patterson Catheter Reason for patterson catheter: Strict I&O Subjective Review of Systems The patient is a 64-year-old female morbidly obese with multiple past medical history including arthritis, asthma, anemia, thyroid disease, and hypertension who presented to [facility] ED with complaint of shortness of breaths. Patient reports she has been experiencing shortness of breaths associated with generalized weakness, dry cough, wheezing, getting worse that prompted this visit. She states she has used her home nebulizer and inhaler without relief. Patient also notes worsening lower extremity edema for the past 3 weeks, with edema now extending to her torso and upper extremities. She reports she has been seen by a glove presser in the past, underwent workup including Holter monitoring, and was told there was no heart disease. Nephrology consulted for hyperkalemia 11/15-Patient seen and examined at bedside. Chocolate and jello seen at bedside, patient was counseled regarding healthy diet and low-potassium diet. 11/16-patient seen and examined at the bedside. Urine output 4850 cc in 24 hours. Continue Bumex. Stool occult is positive. One packed RBC pending. 11/17-patient seen and examined, urine output 11684 cc in 24 hours. Continue Bumex. 11/18-patient seen and examined at bedside. Urine output 950 cc. IV iron daily started. Solu-Medrol started by valve seater operator. Plan for possible EGD tomorrow. 11/19-patient seen and examined. Urine output 4700. Patient is NPO given possible endoscopy today. Bumex on hold. Creatinine trending down. Objective vital signs Vital Sign Date Time Temp Pulse Resp B/P (MAP) Pulse Ox O2 Delivery O2 Flow Rate FiO2 11/19/24 11:53 96 16 91 11/19/24 11:53 Room Air 0.0 11/19/24 11:53 21 11/19/24 10:11 132/45 11/19/24 09:00 97.8 97.8 Total Intake and Output 11/18/24 11/18/24 11/19/24 15:00 23:00 07:00 Intake Total 110 ml 880 ml 700 ml Output Total 3300 ml 1400 ml Balance 110 ml -2420 ml -700 ml medications Current Medications Medications Dose Ordered Sig/Winifred Route Start Time Stop Time Status Last Admin Dose Admin Atorvastatin Calcium 20 mg HS PO 11/13/24 22:00 11/18/24 21:07 20 MG Levothyroxine Sodium 25 mcg QAM@0600 PO 11/13/24 06:00 11/18/24 05:46 25 MCG Albuterol 2.5 mg Q4HPRN PRN NEB 11/13/24 05:45 11/15/24 14:23 2.5 MG Ipratropium [place] 0.5 mg Q4HPRN PRN NEB 11/13/24 05:45 11/15/24 14:23 0.5 MG Sodium Chloride 10 ml Q8HR IV 11/13/24 06:00 11/19/24 06:08 10 ML Acetaminophen/ Hydrocodone Bitart 1 tab Q4HP PRN PO 11/13/24 05:45 11/19/24 02:51 1 TAB Ondansetron HCl 4 mg Q4HP PRN IV 11/13/24 05:45 Docusate Sodium 100 mg BIDPRN PRN PO 11/13/24 05:45 11/15/24 08:17 100 MG Acetaminophen 650 mg Q6HP PRN PO 11/13/24 05:45 11/18/24 01:07 650 MG Nitroglycerin 0.4 mg Q5MINP PRN SL 11/13/24 05:45 Morphine Sulfate 2 mg Q30M PRN IV 11/13/24 05:45 Guaifenesin 200 mg Q4HP PRN PO 11/14/24 13:15 11/14/24 14:20 200 MG Albuterol 2.5 mg Q6HR NEB 11/15/24 18:00 11/19/24 11:53 2.5 MG Ipratropium [place] 0.5 mg Q6HR NEB 11/15/24 18:00 11/19/24 11:53 0.5 MG Polyethylene Glycol 17 gm DAILY PO 11/16/24 10:00 Pantoprazole Sodium 40 mg BID@0600,1700 PO 11/16/24 06:00 11/18/24 16:08 40 MG Iron Sucrose 110 ml @ 110 mls/hr DAILY@1200 IV 11/17/24 19:00 11/21/24 12:59 11/18/24 11:56 110 MLS/HR Zolpidem Tartrate 10 mg HSPRN PRN PO 11/18/24 11:45 11/18/24 23:23 10 MG Prednisone 20 mg DAILY PO 11/19/24 18:00 11/22/24 17:59 Examination Morbidly obese female patient lying in the bed, no acute distress General: Generalized anasarca. Morbidly obese, pillar, mucosae are moist Cardiovascular: Regular S1 and S2. No murmurs, gallops or rubs. No JVD elevation. 3+ pedal edema Respiratory: On NC 2 L supplementation Abdomen: Soft, nontender, nondistended, normoactive bowel sounds, no rebound tenderness, no organomegaly, no masses Genitourinary: Deferred MSK/skin: Mobilizes 4 limbs. Skin is dry and warm Neurological: No motor, no sensitive deficits, normal speech. Pupils are isocoric and reactive. Psych/Mental Status: A/Ox3 laboratory and microbiology Laboratory Tests 11/19/24 06:14 Test 11/19/24 06:14 Range/Units Serum Glucose 88 74-106 mg/dL Labs and/or images reviewed: Labs reviewed by me, Image(s) reviewed by me Problem List/Assessment/Plan Problem List/Assessment/Plan Hyperkalemia Pulmonary edema Acute hypoxic respiratory failure secondary to above Acute microcytic anemia questionable blood loss status post blood transfusion x2 Iron-deficiency anemia ? Liver cirrhosis Diverticulosis Small bilateral pleural effusion Morbid obesity History of gastric bypass Chest CT shows moderate to large stool volume within the colon, small bilateral pleural effusion, hepatic steatosis, liver capsule is nodular may represent cirrhosis. Plan: Given the stable potassium, creatinine back to baseline, we recommend continuing Bumex 1 mg p.o. b.i.d. nephrology will sign off at this time. Please reconsult us if necessary Patient will benefit from 1 mg bid po Bumex once daily on discharge with kcl . Started IV iron daily 11/17 Status post 2 packed RBC transfusion Low-potassium diet advised Avoid preserved and processed food high in potassium Outpatient Nephrology workup advised Plan discussed with patient, at bedside in which all questions have been answered Case discussed with Dr. Franco Addendum Patient seen and examined, plan discussed with resident. Agree with above, Plan discussed with: Patient Dietary Evaluation Review Recommendations by RD: Decrease Calorie Intake Comments: 1) MVI 1 tab daily, ferrous sulfate 325mg BID 2) Check VitD level 3) Consider Cardiac diet 4) Refer CDE for weight management on DC Expected Outcomes/Goals: To meet 75% estimated needs FU 3-5 days CC Plasma Assessment Blood Product Administration S: [id number] NORMA ABERNATHY RESIDENT Nov 19, 2024 12:15 CY FRANCO MD Nov 19, 2024 20:16
[2024-11-19 12:49] LABS: Base Excess 8.5 mmol/L (-2.0-3.0)
[2024-11-19] MEDS ORDERED: GLYCOPYRROLATE 0.2 MG/ML 1ML VIAL ONE (13:10)
[2024-11-19] MEDS ORDERED: LIDOCAINE 2% (LOCAL ANESTH.) PF 5ml SDV ONE (13:10)
[2024-11-19] MEDS ORDERED: fentaNYL CITRATE 100 MCG/2 ML VL ONE (13:10)
[2024-11-19] MEDS ORDERED: MIDAZOLAM HCL 2MG/2ML 2ml VIAL (1mg/ml) ONE (13:10)
[2024-11-19] MEDS ORDERED: ONDANSETRON HCL 4 MG/2 ML VIAL ONE (13:10)
[2024-11-19] MEDS ORDERED: PROPOFOL 10 MG/ML 20 ML IV ONE (13:10)
--- NOTE | 2024-11-19 13:24 | DVHPN2 ---
Progress Note - Dictate Date Seen: Nov 19, 2024 Medical Necessity Reason Pt with a Central, PICC or Fol: Yes The following are medically ne: Patterson Catheter Reason for patterson catheter: Strict I&O vital signs Vital Sign Date Time Temp Pulse Resp B/P (MAP) Pulse Ox O2 Delivery O2 Flow Rate FiO2 11/19/24 11:53 96 16 91 11/19/24 11:53 Room Air 0.0 11/19/24 11:53 21 11/19/24 10:11 132/45 11/19/24 09:00 97.8 97.8 Total Intake and Output 11/18/24 11/18/24 11/19/24 15:00 23:00 07:00 Intake Total 110 ml 880 ml 700 ml Output Total 3300 ml 1400 ml Balance 110 ml -2420 ml -700 ml medications Current Medications Medications Dose Ordered Sig/Winifred Route Start Time Stop Time Status Last Admin Dose Admin Atorvastatin Calcium 20 mg HS PO 11/13/24 22:00 11/18/24 21:07 20 MG Levothyroxine Sodium 25 mcg QAM@0600 PO 11/13/24 06:00 11/18/24 05:46 25 MCG Albuterol 2.5 mg Q4HPRN PRN NEB 11/13/24 05:45 11/15/24 14:23 2.5 MG Ipratropium [place] 0.5 mg Q4HPRN PRN NEB 11/13/24 05:45 11/15/24 14:23 0.5 MG Sodium Chloride 10 ml Q8HR IV 11/13/24 06:00 11/19/24 06:08 10 ML Acetaminophen/ Hydrocodone Bitart 1 tab Q4HP PRN PO 11/13/24 05:45 11/19/24 02:51 1 TAB Ondansetron HCl 4 mg Q4HP PRN IV 11/13/24 05:45 Docusate Sodium 100 mg BIDPRN PRN PO 11/13/24 05:45 11/15/24 08:17 100 MG Acetaminophen 650 mg Q6HP PRN PO 11/13/24 05:45 11/18/24 01:07 650 MG Nitroglycerin 0.4 mg Q5MINP PRN SL 11/13/24 05:45 Morphine Sulfate 2 mg Q30M PRN IV 11/13/24 05:45 Guaifenesin 200 mg Q4HP PRN PO 11/14/24 13:15 11/14/24 14:20 200 MG Albuterol 2.5 mg Q6HR NEB 11/15/24 18:00 11/19/24 11:53 2.5 MG Ipratropium [place] 0.5 mg Q6HR NEB 11/15/24 18:00 11/19/24 11:53 0.5 MG Polyethylene Glycol 17 gm DAILY PO 11/16/24 10:00 Pantoprazole Sodium 40 mg BID@0600,1700 PO 11/16/24 06:00 11/18/24 16:08 40 MG Iron Sucrose 110 ml @ 110 mls/hr DAILY@1200 IV 11/17/24 19:00 11/21/24 12:59 11/18/24 11:56 110 MLS/HR Zolpidem Tartrate 10 mg HSPRN PRN PO 11/18/24 11:45 11/18/24 23:23 10 MG Prednisone 20 mg DAILY PO 11/19/24 18:00 11/22/24 17:59 laboratory and microbiology Laboratory Tests 11/19/24 06:14 Test 11/19/24 06:14 Range/Units Serum Glucose 88 74-106 mg/dL Assessment/Plan Acute hypoxic respiratory failure Dependence on supplemental oxygen Asthma exacerbation Pulmonary edema Atelectasis Anemia Super morbid obesity, BMI 68.6 Events: Remains on supplemental oxygen, 2 LPM NC Taper O2 as tolerated Continue bronchodilators Continue steroids - prednisone 20 mg PO BID for 3 days Stop Solu-Medrol Antitussive PRN cough. Incentive spirometry Patient to be NPO at midnight Plan for EGD in the AM. GI recommendations appreciated. Bumex was held Nephrology recommendations appreciated. Monitor renal function. Monitor electrolytes. Supplement as necessary. Monitor ins and outs. Protonix for GI ppx CT abdomen-pelvis on 11/15/24 revealed: Small bilateral pleural effusions. Moderate to large volume stool within the colon most pronounced within the rectum. Colonic diverticular disease. Soft tissue edema/anasarca. Hepatic steatosis. Liver capsule nodular morphology, may represent sequela of cirrhosis. Distended IVC which can be seen with volume overload. Labs and imaging reviewed. Rest of plan as noted below. Plan: Supplemental oxygen Titrate to keep O2 sats above 92%. Continue bronchodilators, q.6 hours scheduled. Continue steroids Incentive spirometry Antitussive PRN cough Monitor hemoglobin Monitor renal function. Monitor electrolytes. Supplement as necessary. Monitor ins and outs. Diet and lifestyle modifications for weight reduction Obesity complicates all care GI/DVT prophylaxis. Prognosis: Guarded given patient's multiple co-morbidities. Dietary Evaluation Review Recommendations by RD: Decrease Calorie Intake Comments: 1) MVI 1 tab daily, ferrous sulfate 325mg BID 2) Check VitD level 3) Consider Cardiac diet 4) Refer CDE for weight management on DC Expected Outcomes/Goals: To meet 75% estimated needs FU 3-5 days Plan discussed with: Patient CC Plasma Assessment Blood Product Administration S: [id number] REJI WELDON MD Nov 19, 2024 13:24
--- NOTE | 2024-11-19 13:59 | DVHOP2 ---
Operative Report DATE OF OPERATION: 11/19/24 PROCEDURE: Upper Endoscopy with biopsy. PREOPERATIVE INDICATION: The patient is a 64 -year-old female undergoing endoscopy for epigastric pain and anemia POSTOPERATIVE DIAGNOSES: 1. Patient has an intact gastrojejunostomy with no evidence of anastomotic ulcer and no bleeding in the upper GI tract 2. 2 cm sliding-type hiatal hernia with slightly irregular squamocolumnar junction otherwise normal examination up to the efferent and afferent loop of the gastrojejunostomy PROCEDURE PERFORMED BY: Yolanda Gilmore GI NURSE: Willow SCOPE: Olympus videoendoscope. ASA CLASS: 3. PREOPERATIVE MEDICATIONS: Mac Dr. Figueroa chery PROCEDURE IN DETAIL: After obtaining an informed consent, the patient was placed on left lateral decubitus position. The patient was then sedated with the above medications. A bite block was placed between her teeth. The endoscope was then passed through the oropharynx, into the esophagus, and through the stomach remnant Into the efferent and afferent loop of the gastrojejunostomy. The small bowel mucosa was normal and small-bowel biopsies were obtained There was no anastomotic ulcer. Patient had a small gastric remnant which appeared to be normal. Gastric biopsies were obtained Patient had a 2 cm sliding-type hiatal hernia with slightly irregular squamocolumnar junction and minimal grade a erosive esophagitis GE junction biopsies were obtained. The remaining distal and proximal esophagus and oropharynx were unremarkable The patient tolerated the procedure well without difficulty. COMPLICATIONS : None SPECIMENS: Small-bowel biopsies Gastric biopsies DISPOSITION: Transfer back to the floor Stable PLAN: 1. Await for biopsy result 2. Will place pt on Protonix 40 mg p.o. daily 3. Resume GI soft diet advance as tolerated YOLANDA GILMORE MD Nov 19, 2024 13:59
[2024-11-19] MEDS: BUMETANIDE 1 MG TAB PO SCH (17:02)
[2024-11-19] MEDS: predniSONE 20 MG TAB PO SCH (17:13)
[2024-11-20] VITALS (11 sets, daily range): BP systolic 115–124; BP diastolic 46–65; PULSE 64–107; RESP 12–20; TEMP 97.4–98.4; O2SAT 90–100
[2024-11-20 06:43] LABS: Alanine Aminotransferase 27 U/L (7-40); Alkaline Phosphatase 67 U/L (46-116); Anion Gap 5 (5-15); BUN/Creatinine Ratio 28.4 (10.0-20.0); Bilirubin, Total 0.4 mg/dL (0.2-1.0); Chloride 100 mmol/L (98-107); Glucose 103 mg/dL (74-106); Potassium 3.9 mmol/L (3.5-5.1); Sodium 141 mmol/L (136-145)
[2024-11-20 06:44] LABS: Albumin 2.8 g/dL (3.2-4.8); Blood Urea Nitrogen 23 mg/dL (9-23); Calcium 8.4 mg/dL (8.7-10.4); Carbon Dioxide 36 mmol/L (20-31); Total Protein 4.5 g/dL (5.7-8.2)
[2024-11-20 06:47] LABS: Hematocrit 26.3 % (36.0-46.0); Hemoglobin 8.0 g/dL (12.2-16.2); Mean Corpuscular Hemoglobin 22.3 pg (28.0-32.0); Mean Corpuscular Volume 72.8 fL (80.0-100.0); Nucleated Red Blood Cells % 0.1 %
--- NOTE | 2024-11-20 10:59 | DVHPN2 ---
Reviewed: Care Plan, H&P, Labs, Medications, Previous Orders, Radiology Changes from previous H/P or p: No Changes Eyes: No Pain, No Vision change, No Conjunctivae inflammation, No Eyelid inflammation, No Other, No Redness ENT: No Ear pain, No Ear discharge, No Nose pain, No Nose discharge, No Nose congestion, No Mouth pain, No Mouth swelling, No Throat pain, No Throat swelling, No Other Cardiovascular: No Chest Pain, No Palpitations, No Orthopnea, No Paroxysmal Noc. Dyspnea, No Edema, No Lt Headedness, No Other Respiratory: Cough, Shortness of breath, SOB with excertion, Wheezing, Other Gastrointestinal: No Nausea, No Vomiting, No Abdominal Pain, No Diarrhea, No Constipation, No Melena, No Hematochezia, No Other Genitourinary: No Dysuria, No Frequency, No Incontinence, No Hematuria, No Retention, No Other Musculoskeletal: No other, No neck pain, No shoulder pain, No arm pain, No back pain, No hand pain, No leg pain, No foot pain Skin: No Rash, No Lesions, No Jaundice, No Bruising, No Other Objective Vitals Vital Signs Date Time Temp Pulse Resp B/P (MAP) Pulse Ox O2 Delivery O2 Flow Rate FiO2 11/20/24 08:30 98.2 80 12 115/54 (74) 97 98.2 11/19/24 20:00 Nasal Cannula* 2 28 Intake/Output Intake and Output 11/20/24 07:00 Intake Total 1475 ml Output Total 5050 ml Balance -3575 ml Intake Oral 1450 ml IV Total 25 ml Output Urine Total 5050 ml # Bowel Movements 1 Medications Current Medications Medications Dose Ordered Sig/Winifred Route Start Time Stop Time Status Last Admin Dose Admin Atorvastatin Calcium 20 mg HS PO 11/13/24 22:00 11/19/24 21:53 20 MG Levothyroxine Sodium 25 mcg QAM@0600 PO 11/13/24 06:00 11/20/24 05:23 25 MCG Albuterol 2.5 mg Q4HPRN PRN NEB 11/13/24 05:45 11/15/24 14:23 2.5 MG Ipratropium [place] 0.5 mg Q4HPRN PRN NEB 11/13/24 05:45 11/15/24 14:23 0.5 MG Sodium Chloride 10 ml Q8HR IV 11/13/24 06:00 11/20/24 05:26 10 ML Acetaminophen/ Hydrocodone Bitart 1 tab Q4HP PRN PO 11/13/24 05:45 11/20/24 03:00 1 TAB Ondansetron HCl 4 mg Q4HP PRN IV 11/13/24 05:45 Docusate Sodium 100 mg BIDPRN PRN PO 11/13/24 05:45 11/15/24 08:17 100 MG Acetaminophen 650 mg Q6HP PRN PO 11/13/24 05:45 11/20/24 01:31 650 MG Nitroglycerin 0.4 mg Q5MINP PRN SL 11/13/24 05:45 Morphine Sulfate 2 mg Q30M PRN IV 11/13/24 05:45 Guaifenesin 200 mg Q4HP PRN PO 11/14/24 13:15 11/14/24 14:20 200 MG Albuterol 2.5 mg Q6HR NEB 11/15/24 18:00 11/20/24 00:00 2.5 MG Ipratropium [place] 0.5 mg Q6HR NEB 11/15/24 18:00 11/20/24 00:00 0.5 MG Polyethylene Glycol 17 gm DAILY PO 11/16/24 10:00 11/20/24 09:31 17 GM Pantoprazole Sodium 40 mg BID@0600,1700 PO 11/16/24 06:00 11/20/24 05:23 40 MG Iron Sucrose 110 ml @ 110 mls/hr DAILY@1200 IV 11/17/24 19:00 11/21/24 12:59 11/18/24 11:56 110 MLS/HR Zolpidem Tartrate 10 mg HSPRN PRN PO 11/18/24 11:45 11/19/24 22:54 10 MG Prednisone 20 mg DAILY PO 11/19/24 18:00 11/22/24 17:59 11/20/24 09:30 20 MG Bumetanide 1 mg DAILY PO 11/20/24 10:00 Laboratory Results Laboratory Tests 11/20/24 05:43 Chemistry Test 11/20/24 05:43 Albumin 2.8 g/dL (3.2-4.8) L Calcium Level 8.4 mg/dL (8.7-10.4) L Total Protein 4.5 g/dL (5.7-8.2) L LFT Test 11/20/24 05:43 Alanine Aminotransferase (ALT) 27 U/L (7-40) Alkaline Phosphatase 67 U/L (46-116) Aspartate Amino Transferase (AST) 33 U/L (13-40) Total Bilirubin 0.4 mg/dL (0.2-1.0) Urinalysis Test 11/13/24 04:20 Urine Color Light-yellow (Yellow) Urine Clarity Clear (Clear) Urine pH 5.5 (5.0-9.0) Urine Specific [place] 1.021 (1.001-1.035) Urine Protein Negative (Negative) Urine Ketones Negative (Negative) Urine Blood Negative /uL (Negative) Urine Nitrite 1+ (Negative) H Urine Bilirubin Negative (Negative) Urine Urobilinogen Normal mg/dL (Negative) Urine Leukocyte Esterase Negative /uL (Negative) Urine RBC <1 /hpf (0 - 4) Urine Microscopic WBC < 1 /HPF (0-5) Urine Squamous Epithelial Cells Few /hpf (<5) Urine Bacteria Few /hpf (None Seen) H Urine Yeast (Budding) Occasional /hpf (None Urine Glucose Normal mg/dL (Normal) Blood Gas Results Test 11/19/24 12:45 Arterial Blood pH 7.527 (7.350-7.450) FiO2 % 28.0 Labs and/or images reviewed: Labs reviewed by me, Image(s) reviewed by me Assessment/Plan Assessment/Plan Severe symptomatic anemia hemoglobin 6.2 improved to 8.3 after 3 units RBC transfusion, now on iron transfusion, Intact gastrojejunostomy with no evidence of anastomotic ulcer and no bleeding in the upper GI tract by EGD by Dr. Rosaline Gilmore on 11/19/2024 Acute hypoxic respiratory failure: Oxygen by nasal cannula Acute asthma exacerbation: Albuterol Atrovent Solu-Medrol Acute COPD exacerbation: Consult for Dr. Duque appreciated Acute generalized weakness Chronic anemia Arthritis Chronic kidney disease GERD Hypertension Hyperlipidemia Hypothyroidism Lymphedema CT abdomen pelvis with IV contrast negative for any acute pathology Morbid obesity History of gastric bypass 2002 Hiatal hernia repair 2003 History of smoking for 20 years quit in 1998 Previous hospitalizations in [facility] History of bilateral inguinal hernia Obstructive Sleep apnea on CPAP History of cholecystectomy DVT ruled out Acute Hyperkalemia potassium 5.3: Consult for [employer] appreciated Time spent 60 minutes Patient is full code Plan discussed with: Patient Date of Service: Nov 20, 2024 Billing Provider: TANO FAJARDO MD Common Visit Codes: 21211-[id number] CARE 30-74 MIN TANO FAJARDO MD Nov 20, 2024 10:59
[2024-11-20] MEDS: BUMETANIDE 1 MG TAB PO SCH (13:06)
--- NOTE | 2024-11-20 13:10 | DVHPN2 ---
Progress Note - Dictate Date Seen: Nov 20, 2024 Medical Necessity Reason Pt with a Central, PICC or Fol: Yes The following are medically ne: Patterson Catheter Reason for patterson catheter: Strict I&O vital signs Vital Sign Date Time Temp Pulse Resp B/P (MAP) Pulse Ox O2 Delivery O2 Flow Rate FiO2 11/20/24 13:06 122/57 11/20/24 11:47 67 18 99 11/20/24 11:39 Nasal Cannula* 3 32 11/20/24 08:30 98.2 98.2 Total Intake and Output 11/19/24 11/19/24 11/20/24 15:00 23:00 07:00 Intake Total 25 ml 650 ml 800 ml Output Total 800 ml 1200 ml 3050 ml Balance -775 ml -550 ml -2250 ml medications Current Medications Medications Dose Ordered Sig/Winifred Route Start Time Stop Time Status Last Admin Dose Admin Atorvastatin Calcium 20 mg HS PO 11/13/24 22:00 11/19/24 21:53 20 MG Levothyroxine Sodium 25 mcg QAM@0600 PO 11/13/24 06:00 11/20/24 05:23 25 MCG Albuterol 2.5 mg Q4HPRN PRN NEB 11/13/24 05:45 11/15/24 14:23 2.5 MG Ipratropium [place] 0.5 mg Q4HPRN PRN NEB 11/13/24 05:45 11/15/24 14:23 0.5 MG Sodium Chloride 10 ml Q8HR IV 11/13/24 06:00 11/20/24 05:26 10 ML Acetaminophen/ Hydrocodone Bitart 1 tab Q4HP PRN PO 11/13/24 05:45 11/20/24 03:00 1 TAB Ondansetron HCl 4 mg Q4HP PRN IV 11/13/24 05:45 Docusate Sodium 100 mg BIDPRN PRN PO 11/13/24 05:45 11/15/24 08:17 100 MG Acetaminophen 650 mg Q6HP PRN PO 11/13/24 05:45 11/20/24 01:31 650 MG Nitroglycerin 0.4 mg Q5MINP PRN SL 11/13/24 05:45 Morphine Sulfate 2 mg Q30M PRN IV 11/13/24 05:45 Guaifenesin 200 mg Q4HP PRN PO 11/14/24 13:15 11/14/24 14:20 200 MG Albuterol 2.5 mg Q6HR NEB 11/15/24 18:00 11/20/24 11:39 2.5 MG Ipratropium [place] 0.5 mg Q6HR NEB 11/15/24 18:00 11/20/24 11:39 0.5 MG Polyethylene Glycol 17 gm DAILY PO 11/16/24 10:00 11/20/24 09:31 17 GM Pantoprazole Sodium 40 mg BID@0600,1700 PO 11/16/24 06:00 11/20/24 05:23 40 MG Iron Sucrose 110 ml @ 110 mls/hr DAILY@1200 IV 11/17/24 19:00 11/20/24 18:59 11/20/24 12:16 110 MLS/HR Zolpidem Tartrate 10 mg HSPRN PRN PO 11/18/24 11:45 11/19/24 22:54 10 MG Prednisone 20 mg DAILY PO 11/19/24 18:00 11/22/24 17:59 11/20/24 09:30 20 MG Bumetanide 1 mg DAILY PO 11/20/24 10:00 11/20/24 13:06 1 MG Ferrous Sulfate 325 mg BID PO 11/21/24 10:00 laboratory and microbiology Laboratory Tests 11/20/24 05:43 Test 11/20/24 05:43 Range/Units Serum Glucose 103 74-106 mg/dL Assessment/Plan Acute hypoxic respiratory failure Dependence on supplemental oxygen Asthma exacerbation Pulmonary edema Atelectasis Anemia Super morbid obesity, BMI 68.6 Events: Low oxygen requirements On 2 liters nasal cannula Continues to experience cough Labs and imaging reviewed Plan: Supplemental oxygen Titrate to keep O2 sats above 92%. Continue bronchodilators, q.6 hours scheduled. Continue steroids Incentive spirometry Antitussive PRN cough Monitor hemoglobin Monitor renal function. Monitor electrolytes. Supplement as necessary. Monitor ins and outs. Diet and lifestyle modifications for weight reduction Obesity complicates all care GI/DVT prophylaxis. Repeat chest x-ray in view of persistent cough Dietary Evaluation Review Recommendations by RD: Decrease Calorie Intake Comments: 1) MVI 1 tab daily, ferrous sulfate 325mg BID 2) Check VitD level 3) Consider Cardiac diet 4) Refer CDE for weight management on DC Expected Outcomes/Goals: To meet 75% estimated needs FU 3-5 days Plan discussed with: Patient CC Plasma Assessment Blood Product Administration S: [id number] REJI WELDON MD Nov 20, 2024 13:10
--- NOTE | 2024-11-20 13:18 | DVHPN2 ---
Progress Note Date Seen: Nov 20, 2024 Medical Necessity Reason Pt with a Central, PICC or Fol: Yes The following are medically ne: Patterson Catheter Reason for patterson catheter: Strict I&O Subjective Patient reports: No new complaints Review of Systems: Deferred Objective vital signs Vital Sign Date Time Temp Pulse Resp B/P (MAP) Pulse Ox O2 Delivery O2 Flow Rate FiO2 11/20/24 13:06 122/57 11/20/24 11:47 67 18 99 11/20/24 11:39 Nasal Cannula* 3 32 11/20/24 08:30 98.2 98.2 Total Intake and Output 11/19/24 11/19/24 11/20/24 15:00 23:00 07:00 Intake Total 25 ml 650 ml 800 ml Output Total 800 ml 1200 ml 3050 ml Balance -775 ml -550 ml -2250 ml medications Current Medications Medications Dose Ordered Sig/Winifred Route Start Time Stop Time Status Last Admin Dose Admin Atorvastatin Calcium 20 mg HS PO 11/13/24 22:00 11/19/24 21:53 20 MG Levothyroxine Sodium 25 mcg QAM@0600 PO 11/13/24 06:00 11/20/24 05:23 25 MCG Albuterol 2.5 mg Q4HPRN PRN NEB 11/13/24 05:45 11/15/24 14:23 2.5 MG Ipratropium [place] 0.5 mg Q4HPRN PRN NEB 11/13/24 05:45 11/15/24 14:23 0.5 MG Sodium Chloride 10 ml Q8HR IV 11/13/24 06:00 11/20/24 13:11 10 ML Acetaminophen/ Hydrocodone Bitart 1 tab Q4HP PRN PO 11/13/24 05:45 11/20/24 13:10 1 TAB Ondansetron HCl 4 mg Q4HP PRN IV 11/13/24 05:45 Docusate Sodium 100 mg BIDPRN PRN PO 11/13/24 05:45 11/15/24 08:17 100 MG Acetaminophen 650 mg Q6HP PRN PO 11/13/24 05:45 11/20/24 01:31 650 MG Nitroglycerin 0.4 mg Q5MINP PRN SL 11/13/24 05:45 Morphine Sulfate 2 mg Q30M PRN IV 11/13/24 05:45 Guaifenesin 200 mg Q4HP PRN PO 11/14/24 13:15 11/14/24 14:20 200 MG Albuterol 2.5 mg Q6HR NEB 11/15/24 18:00 11/20/24 11:39 2.5 MG Ipratropium [place] 0.5 mg Q6HR NEB 11/15/24 18:00 11/20/24 11:39 0.5 MG Polyethylene Glycol 17 gm DAILY PO 11/16/24 10:00 11/20/24 09:31 17 GM Pantoprazole Sodium 40 mg BID@0600,1700 PO 11/16/24 06:00 11/20/24 05:23 40 MG Iron Sucrose 110 ml @ 110 mls/hr DAILY@1200 IV 11/17/24 19:00 11/20/24 18:59 11/20/24 12:16 110 MLS/HR Zolpidem Tartrate 10 mg HSPRN PRN PO 11/18/24 11:45 11/19/24 22:54 10 MG Prednisone 20 mg DAILY PO 11/19/24 18:00 11/22/24 17:59 11/20/24 09:30 20 MG Bumetanide 1 mg DAILY PO 11/20/24 10:00 11/20/24 13:06 1 MG Ferrous Sulfate 325 mg BID PO 11/21/24 10:00 Examination: GENERAL:Abnormal, LUNGS:Abnormal, MSK:Abnormal laboratory and microbiology Laboratory Tests 11/20/24 05:43 Test 11/20/24 05:43 Range/Units Serum Glucose 103 74-106 mg/dL Problem List/Assessment/Plan Problem List/Assessment/Plan Hyperkalemia Pulmonary edema Acute hypoxic respiratory failure secondary to above Acute microcytic anemia questionable blood loss status post blood transfusion x2 Iron-deficiency anemia Liver cirrhosis Diverticulosis Small bilateral pleural effusion Morbid obesity History of gastric bypass Chest CT shows moderate to large stool volume within the colon, small bilateral pleural effusion, hepatic steatosis, liver capsule is nodular may represent cirrhosis. Plan: bumex 1mg po daily cxr repeat Plan discussed with: Patient My Orders My Orders Orders - CY FRANCO MD Procedure Category Date Status Time Bumetanide Tablet PHA 11/20/24 In Process (Bumex Tablet) 10:00 Dietary Evaluation Review Recommendations by RD: Decrease Calorie Intake Comments: 1) MVI 1 tab daily, ferrous sulfate 325mg BID 2) Check VitD level 3) Consider Cardiac diet 4) Refer CDE for weight management on DC Expected Outcomes/Goals: To meet 75% estimated needs FU 3-5 days CC Plasma Assessment Blood Product Administration S: [id number] CY FRANCO MD Nov 20, 2024 13:17
--- NOTE | 2024-11-20 22:07 | DVHPN2 ---
Progress Note - Dictate Date Seen: Nov 20, 2024 Medical Necessity Reason Pt with a Central, PICC or Fol: Yes The following are medically ne: Patterson Catheter Reason for patterson catheter: Strict I&O Subjective This 68-year-old female who is morbidly obese admitted symptomatic anemia S/P 1 unit PRBC. Her stool for occult blood is positive with the complaints of weakness tiredness Had colonoscopy a few years ago at the [facility]; She had some polyps never had an EGD after the gastric bypass in 2001 Patient is agreeable to having an endoscopic test for evaluation of her upper GI tract and rule out anastomotic ulcer Patient complains of fluid retention increasing pedal edema and worsening of her lymphedema She denies any active GI bleeding at this time and she is tolerating a diet; she does complain of some mild epigastric tenderness Patient usually tends to be constipated and has a history of anemia related to gastric bypass, currently not taking any vitamin supplements Patient has had multiple bowel movements since admission vital signs Vital Sign Date Time Temp Pulse Resp B/P (MAP) Pulse Ox O2 Delivery O2 Flow Rate FiO2 11/20/24 21:00 97.4 102 18 118/46 (70) 90 97.4 11/20/24 20:00 Nasal Cannula* 2 28 Total Intake and Output 11/19/24 11/19/24 11/20/24 15:00 23:00 07:00 Intake Total 25 ml 650 ml 800 ml Output Total 800 ml 1200 ml 3050 ml Balance -775 ml -550 ml -2250 ml medications Current Medications Medications Dose Ordered Sig/Winifred Route Start Time Stop Time Status Last Admin Dose Admin Atorvastatin Calcium 20 mg HS PO 11/13/24 22:00 11/19/24 21:53 20 MG Levothyroxine Sodium 25 mcg QAM@0600 PO 11/13/24 06:00 11/20/24 05:23 25 MCG Albuterol 2.5 mg Q4HPRN PRN NEB 11/13/24 05:45 11/15/24 14:23 2.5 MG Ipratropium [place] 0.5 mg Q4HPRN PRN NEB 11/13/24 05:45 11/15/24 14:23 0.5 MG Sodium Chloride 10 ml Q8HR IV 11/13/24 06:00 11/20/24 13:11 10 ML Acetaminophen/ Hydrocodone Bitart 1 tab Q4HP PRN PO 11/13/24 05:45 11/20/24 19:48 1 TAB Ondansetron HCl 4 mg Q4HP PRN IV 11/13/24 05:45 Docusate Sodium 100 mg BIDPRN PRN PO 11/13/24 05:45 11/15/24 08:17 100 MG Acetaminophen 650 mg Q6HP PRN PO 11/13/24 05:45 11/20/24 01:31 650 MG Nitroglycerin 0.4 mg Q5MINP PRN SL 11/13/24 05:45 Morphine Sulfate 2 mg Q30M PRN IV 11/13/24 05:45 Guaifenesin 200 mg Q4HP PRN PO 11/14/24 13:15 11/14/24 14:20 200 MG Albuterol 2.5 mg Q6HR NEB 11/15/24 18:00 11/20/24 18:39 2.5 MG Ipratropium [place] 0.5 mg Q6HR NEB 11/15/24 18:00 11/20/24 18:39 0.5 MG Polyethylene Glycol 17 gm DAILY PO 11/16/24 10:00 11/20/24 09:31 17 GM Pantoprazole Sodium 40 mg BID@0600,1700 PO 11/16/24 06:00 11/20/24 17:10 40 MG Zolpidem Tartrate 10 mg HSPRN PRN PO 11/18/24 11:45 11/19/24 22:54 10 MG Prednisone 20 mg DAILY PO 11/19/24 18:00 11/22/24 17:59 11/20/24 09:30 20 MG Bumetanide 1 mg DAILY PO 11/20/24 10:00 11/20/24 13:06 1 MG Ferrous Sulfate 325 mg BID PO 11/21/24 10:00 objective Morbidly obese female patient lying in the bed, no acute distress General: Morbidly obese, mild pallor, mucosae are moist Cardiovascular: Regular S1 and S2. No murmurs, gallops or rubs. No JVD elevation. 3+ pedal edema Respiratory: On NC 2 L supplementation Abdomen: Soft, nontender, nondistended, obese normoactive bowel sounds, no rebound tenderness, no organomegaly, no masses MSK/skin: Mobilizes 4 limbs. Skin is dry and warm; extensive lymphedema laboratory and microbiology Laboratory Tests 11/20/24 05:43 Test 11/20/24 05:43 Range/Units Serum Glucose 103 74-106 mg/dL Problems(with codes): (1) Gastric bypass status for obesity (2) Lymphedema (3) Fluid overload (4) Generalized weakness (5) Symptomatic anemia Prognosis Plan EGD findings were reviewed with the patient Gastrojejunostomy is intact without anastomotic ulcer or bleeding Underlying diagnosis of possible cirrhosis related to mesh Patient was advised that it will be difficult to perform a colonoscopy on her because of her morbid obesity and severe lymphedema in the legs Continue to monitor labs, iron supplements and vitamin B12 supplements and DC aspirin and NSAIDs MiraLax and Colace for her constipation Dietary Evaluation Review Recommendations by RD: Decrease Calorie Intake Comments: 1) MVI 1 tab daily, ferrous sulfate 325mg BID 2) Check VitD level 3) Consider Cardiac diet 4) Refer CDE for weight management on DC Expected Outcomes/Goals: To meet 75% estimated needs FU 3-5 days Plan discussed with: Patient CC Plasma Assessment Blood Product Administration S: [id number] YOLANDA BURKS MD Nov 20, 2024 22:07
[2024-11-21] VITALS (14 sets, daily range): BP systolic 118–146; BP diastolic 41–64; PULSE 84–105; RESP 14–18; TEMP 97.5–98.3; O2SAT 92–99
--- NOTE | 2024-11-21 08:40 | DVHPN2 ---
Progress Note Date Seen: Nov 21, 2024 Medical Necessity Reason Pt with a Central, PICC or Fol: Yes The following are medically ne: Patterson Catheter Reason for patterson catheter: Strict I&O Subjective Patient reports: Feels better, Other Review of Systems: Deferred Objective vital signs Vital Sign Date Time Temp Pulse Resp B/P (MAP) Pulse Ox O2 Delivery O2 Flow Rate FiO2 11/21/24 06:42 85 14 98 11/21/24 06:36 Nasal Cannula* 2 28 11/21/24 05:00 97.5 119/41 (67) 97.5 Total Intake and Output 11/20/24 11/20/24 11/21/24 15:00 23:00 07:00 Intake Total 110 ml 1000 ml Output Total 5525 ml 1900 ml Balance 110 ml -5525 ml -900 ml medications Current Medications Medications Dose Ordered Sig/Winifred Route Start Time Stop Time Status Last Admin Dose Admin Atorvastatin Calcium 20 mg HS PO 11/13/24 22:00 11/20/24 23:30 20 MG Levothyroxine Sodium 25 mcg QAM@0600 PO 11/13/24 06:00 11/21/24 05:35 25 MCG Albuterol 2.5 mg Q4HPRN PRN NEB 11/13/24 05:45 11/15/24 14:23 2.5 MG Ipratropium [place] 0.5 mg Q4HPRN PRN NEB 11/13/24 05:45 11/15/24 14:23 0.5 MG Sodium Chloride 10 ml Q8HR IV 11/13/24 06:00 11/21/24 05:37 10 ML Acetaminophen/ Hydrocodone Bitart 1 tab Q4HP PRN PO 11/13/24 05:45 11/21/24 03:35 1 TAB Ondansetron HCl 4 mg Q4HP PRN IV 11/13/24 05:45 Docusate Sodium 100 mg BIDPRN PRN PO 11/13/24 05:45 11/15/24 08:17 100 MG Acetaminophen 650 mg Q6HP PRN PO 11/13/24 05:45 11/20/24 01:31 650 MG Nitroglycerin 0.4 mg Q5MINP PRN SL 11/13/24 05:45 Morphine Sulfate 2 mg Q30M PRN IV 11/13/24 05:45 Guaifenesin 200 mg Q4HP PRN PO 11/14/24 13:15 11/14/24 14:20 200 MG Albuterol 2.5 mg Q6HR NEB 11/15/24 18:00 11/21/24 06:34 2.5 MG Ipratropium [place] 0.5 mg Q6HR NEB 11/15/24 18:00 11/21/24 06:34 0.5 MG Polyethylene Glycol 17 gm DAILY PO 11/16/24 10:00 11/20/24 09:31 17 GM Pantoprazole Sodium 40 mg BID@0600,1700 PO 11/16/24 06:00 11/21/24 05:35 40 MG Zolpidem Tartrate 10 mg HSPRN PRN PO 11/18/24 11:45 11/20/24 23:30 10 MG Prednisone 20 mg DAILY PO 11/19/24 18:00 11/22/24 17:59 11/20/24 09:30 20 MG Bumetanide 1 mg DAILY PO 11/20/24 10:00 11/20/24 13:06 1 MG Ferrous Sulfate 325 mg BID PO 11/21/24 10:00 Examination: GENERAL:Abnormal, HEENT:Normal, LUNGS:Abnormal, MSK:Abnormal, NEURO:Normal, :Normal laboratory and microbiology Laboratory Tests 11/20/24 05:43 Test 11/20/24 05:43 Range/Units Serum Glucose 103 74-106 mg/dL Problem List/Assessment/Plan Problem List/Assessment/Plan Hyperkalemia Pulmonary edema Acute hypoxic respiratory failure secondary to above Acute microcytic anemia questionable blood loss status post blood transfusion x2 Iron-deficiency anemia Liver cirrhosis Diverticulosis Small bilateral pleural effusion Morbid obesity History of gastric bypass Plan: bumex 1mg po daily cxr repeat--pending from yesterday Labs pending Plan discussed with: Patient My Orders My Orders Orders - CY FRANCO MD Procedure Category Date Status Time Basic Metabolic Panel LAB 11/21/24 Logged 08:35 Basic Metabolic Panel LAB 11/22/24 Verified 05:00 Basic Metabolic Panel LAB 11/23/24 Verified 05:00 Basic Metabolic Panel LAB 11/24/24 Verified 05:00 Basic Metabolic Panel LAB 11/25/24 Verified 05:00 Basic Metabolic Panel LAB 11/26/24 Verified 05:00 Basic Metabolic Panel LAB 11/27/24 Verified 05:00 Basic Metabolic Panel LAB 11/28/24 Verified 05:00 Dietary Evaluation Review Recommendations by RD: Decrease Calorie Intake Comments: 1) MVI 1 tab daily, ferrous sulfate 325mg BID 2) Check VitD level 3) Consider Cardiac diet 4) Refer CDE for weight management on DC Expected Outcomes/Goals: To meet 75% estimated needs FU 3-5 days CC Plasma Assessment Blood Product Administration S: [id number] CY FRANCO MD Nov 21, 2024 08:40
[2024-11-21 09:02] LABS: Potassium 4.0 mmol/L (3.5-5.1); Sodium 142 mmol/L (136-145)
[2024-11-21 09:03] LABS: Anion Gap 6 (5-15); Calcium 8.6 mg/dL (8.7-10.4); Chloride 98 mmol/L (98-107)
[2024-11-21 09:04] LABS: Carbon Dioxide 38 mmol/L (20-31)
[2024-11-21 09:09] LABS: BUN/Creatinine Ratio 29.5 (10.0-20.0); Glucose 86 mg/dL (74-106)
[2024-11-21 09:13] LABS: Blood Urea Nitrogen 26 mg/dL (9-23)
[2024-11-21] MEDS: FERROUS SULFATE 325mg EC TAB PO SCH (09:35)
--- NOTE | 2024-11-21 12:42 | DVHPN2 ---
Progress Note - Dictate Date Seen: Nov 21, 2024 Medical Necessity Reason Pt with a Central, PICC or Fol: Yes The following are medically ne: Patterson Catheter Reason for patterson catheter: Strict I&O vital signs Vital Sign Date Time Temp Pulse Resp B/P (MAP) Pulse Ox O2 Delivery O2 Flow Rate FiO2 11/21/24 11:50 88 14 97 11/21/24 09:36 120/62 11/21/24 08:30 97.9 97.9 11/21/24 08:05 Nasal Cannula* 2 28 Total Intake and Output 11/20/24 11/20/24 11/21/24 15:00 23:00 07:00 Intake Total 110 ml 1000 ml Output Total 5525 ml 1900 ml Balance 110 ml -5525 ml -900 ml medications Current Medications Medications Dose Ordered Sig/Winifred Route Start Time Stop Time Status Last Admin Dose Admin Atorvastatin Calcium 20 mg HS PO 11/13/24 22:00 11/20/24 23:30 20 MG Levothyroxine Sodium 25 mcg QAM@0600 PO 11/13/24 06:00 11/21/24 05:35 25 MCG Albuterol 2.5 mg Q4HPRN PRN NEB 11/13/24 05:45 11/15/24 14:23 2.5 MG Ipratropium [place] 0.5 mg Q4HPRN PRN NEB 11/13/24 05:45 11/15/24 14:23 0.5 MG Sodium Chloride 10 ml Q8HR IV 11/13/24 06:00 11/21/24 05:37 10 ML Acetaminophen/ Hydrocodone Bitart 1 tab Q4HP PRN PO 11/13/24 05:45 11/21/24 09:36 1 TAB Ondansetron HCl 4 mg Q4HP PRN IV 11/13/24 05:45 Docusate Sodium 100 mg BIDPRN PRN PO 11/13/24 05:45 11/15/24 08:17 100 MG Acetaminophen 650 mg Q6HP PRN PO 11/13/24 05:45 11/20/24 01:31 650 MG Nitroglycerin 0.4 mg Q5MINP PRN SL 11/13/24 05:45 Morphine Sulfate 2 mg Q30M PRN IV 11/13/24 05:45 Guaifenesin 200 mg Q4HP PRN PO 11/14/24 13:15 11/14/24 14:20 200 MG Albuterol 2.5 mg Q6HR NEB 11/15/24 18:00 11/21/24 11:41 2.5 MG Ipratropium [place] 0.5 mg Q6HR NEB 11/15/24 18:00 11/21/24 11:41 0.5 MG Polyethylene Glycol 17 gm DAILY PO 11/16/24 10:00 11/20/24 09:31 17 GM Pantoprazole Sodium 40 mg BID@0600,1700 PO 11/16/24 06:00 11/21/24 05:35 40 MG Zolpidem Tartrate 10 mg HSPRN PRN PO 11/18/24 11:45 11/20/24 23:30 10 MG Prednisone 20 mg DAILY PO 11/19/24 18:00 11/22/24 17:59 11/21/24 09:35 20 MG Bumetanide 1 mg DAILY PO 11/20/24 10:00 11/21/24 09:36 1 MG Ferrous Sulfate 325 mg BID PO 11/21/24 10:00 11/21/24 09:35 325 MG laboratory and microbiology Laboratory Tests 11/21/24 06:26 11/20/24 05:43 Test 11/21/24 06:26 Range/Units Serum Glucose 86 74-106 mg/dL Assessment/Plan Acute hypoxic respiratory failure Dependence on supplemental oxygen Asthma exacerbation Pulmonary edema Atelectasis Anemia Super morbid obesity, BMI 68.6 Events: Low oxygen requirements On 2 liters nasal cannula No acute events Labs and imaging reviewed Plan: Supplemental oxygen Titrate to keep O2 sats above 92%. Continue bronchodilators Continue steroids Incentive spirometry Antitussive PRN cough Monitor hemoglobin Monitor renal function. Monitor electrolytes. Supplement as necessary. Monitor ins and outs. DVT prophylaxis Dietary Evaluation Review Recommendations by RD: Decrease Calorie Intake Comments: 1) MVI 1 tab daily, ferrous sulfate 325mg BID 2) Check VitD level 3) Consider Cardiac diet 4) Refer CDE for weight management on DC Expected Outcomes/Goals: To meet 75% estimated needs FU 3-5 days Plan discussed with: Patient CC Plasma Assessment Blood Product Administration S: [id number] REJI WELDON MD Nov 21, 2024 12:42
--- NOTE | 2024-11-21 12:43 | DVHPN2 ---
Reviewed: Care Plan, H&P, Labs, Medications, Previous Orders, Radiology Changes from previous H/P or p: No Changes Eyes: No Pain, No Vision change, No Conjunctivae inflammation, No Eyelid inflammation, No Other, No Redness ENT: No Ear pain, No Ear discharge, No Nose pain, No Nose discharge, No Nose congestion, No Mouth pain, No Mouth swelling, No Throat pain, No Throat swelling, No Other Cardiovascular: No Chest Pain, No Palpitations, No Orthopnea, No Paroxysmal Noc. Dyspnea, No Edema, No Lt Headedness, No Other Respiratory: Cough, Shortness of breath, SOB with excertion, Wheezing, Other Gastrointestinal: No Nausea, No Vomiting, No Abdominal Pain, No Diarrhea, No Constipation, No Melena, No Hematochezia, No Other Genitourinary: No Dysuria, No Frequency, No Incontinence, No Hematuria, No Retention, No Other Musculoskeletal: No other, No neck pain, No shoulder pain, No arm pain, No back pain, No hand pain, No leg pain, No foot pain Skin: No Rash, No Lesions, No Jaundice, No Bruising, No Other Objective Vitals Vital Signs Date Time Temp Pulse Resp B/P (MAP) Pulse Ox O2 Delivery O2 Flow Rate FiO2 11/21/24 11:50 88 14 97 11/21/24 09:36 120/62 11/21/24 08:30 97.9 97.9 11/21/24 08:05 Nasal Cannula* 2 28 Intake/Output Intake and Output 11/21/24 07:00 Intake Total 1110 ml Output Total 7425 ml Balance -6315 ml Intake Oral 1000 ml IV Total 110 ml Output Urine Total 7425 ml # Bowel Movements 2 Medications Current Medications Medications Dose Ordered Sig/Winifred Route Start Time Stop Time Status Last Admin Dose Admin Atorvastatin Calcium 20 mg HS PO 11/13/24 22:00 11/20/24 23:30 20 MG Levothyroxine Sodium 25 mcg QAM@0600 PO 11/13/24 06:00 11/21/24 05:35 25 MCG Albuterol 2.5 mg Q4HPRN PRN NEB 11/13/24 05:45 11/15/24 14:23 2.5 MG Ipratropium [place] 0.5 mg Q4HPRN PRN NEB 11/13/24 05:45 11/15/24 14:23 0.5 MG Sodium Chloride 10 ml Q8HR IV 11/13/24 06:00 11/21/24 05:37 10 ML Acetaminophen/ Hydrocodone Bitart 1 tab Q4HP PRN PO 11/13/24 05:45 11/21/24 09:36 1 TAB Ondansetron HCl 4 mg Q4HP PRN IV 11/13/24 05:45 Docusate Sodium 100 mg BIDPRN PRN PO 11/13/24 05:45 11/15/24 08:17 100 MG Acetaminophen 650 mg Q6HP PRN PO 11/13/24 05:45 11/20/24 01:31 650 MG Nitroglycerin 0.4 mg Q5MINP PRN SL 11/13/24 05:45 Morphine Sulfate 2 mg Q30M PRN IV 11/13/24 05:45 Guaifenesin 200 mg Q4HP PRN PO 11/14/24 13:15 11/14/24 14:20 200 MG Albuterol 2.5 mg Q6HR NEB 11/15/24 18:00 11/21/24 11:41 2.5 MG Ipratropium [place] 0.5 mg Q6HR NEB 11/15/24 18:00 11/21/24 11:41 0.5 MG Polyethylene Glycol 17 gm DAILY PO 11/16/24 10:00 11/20/24 09:31 17 GM Pantoprazole Sodium 40 mg BID@0600,1700 PO 11/16/24 06:00 11/21/24 05:35 40 MG Zolpidem Tartrate 10 mg HSPRN PRN PO 11/18/24 11:45 11/20/24 23:30 10 MG Prednisone 20 mg DAILY PO 11/19/24 18:00 11/22/24 17:59 11/21/24 09:35 20 MG Bumetanide 1 mg DAILY PO 11/20/24 10:00 11/21/24 09:36 1 MG Ferrous Sulfate 325 mg BID PO 11/21/24 10:00 11/21/24 09:35 325 MG Laboratory Results Laboratory Tests 11/20/24 05:43 11/21/24 06:26 Chemistry Test 11/21/24 06:26 Calcium Level 8.6 mg/dL (8.7-10.4) L Urinalysis Test 11/13/24 04:20 Urine Color Light-yellow (Yellow) Urine Clarity Clear (Clear) Urine pH 5.5 (5.0-9.0) Urine Specific [place] 1.021 (1.001-1.035) Urine Protein Negative (Negative) Urine Ketones Negative (Negative) Urine Blood Negative /uL (Negative) Urine Nitrite 1+ (Negative) H Urine Bilirubin Negative (Negative) Urine Urobilinogen Normal mg/dL (Negative) Urine Leukocyte Esterase Negative /uL (Negative) Urine RBC <1 /hpf (0 - 4) Urine Microscopic WBC < 1 /HPF (0-5) Urine Squamous Epithelial Cells Few /hpf (<5) Urine Bacteria Few /hpf (None Seen) H Urine Yeast (Budding) Occasional /hpf (None Urine Glucose Normal mg/dL (Normal) Labs and/or images reviewed: Labs reviewed by me, Image(s) reviewed by me Assessment/Plan Assessment/Plan Severe symptomatic anemia hemoglobin 6.2 improved to 8.3 after 3 units RBC transfusion, now on iron transfusion, Intact gastrojejunostomy with no evidence of anastomotic ulcer and no bleeding in the upper GI tract by EGD by Dr. Rosaline Gilmore on 11/19/2024 Acute hypoxic respiratory failure: Oxygen by nasal cannula Acute asthma exacerbation: Albuterol Atrovent Solu-Medrol Acute COPD exacerbation: Consult for Dr. Duque appreciated Acute generalized weakness Chronic anemia Arthritis Chronic kidney disease GERD Hypertension Hyperlipidemia Hypothyroidism Lymphedema CT abdomen pelvis with IV contrast negative for any acute pathology Morbid obesity History of gastric bypass 2003 Hiatal hernia repair 2003 History of smoking for 20 years quit in 1998 [place] [facility] [place] [facility] [place] of bilateral inguinal hernia Obstructive Sleep apnea on CPAP History of cholecystectomy DVT ruled out Dysuria: Will check UA Acute Hyperkalemia potassium 5.3: Consult for Manager Rn Case appreciated Time spent 60 minutes Patient is full code Plan discussed with: Patient My Orders Orders - TANO FAJARDO MD Procedure Category Date Status Time * Wound Consult CONS 11/20/24 Transmitted Urinalysis LAB 11/21/24 Transmitted 12:41 Date of Service: Nov 21, 2024 Billing Provider: TANO FAJARDO MD Common Visit Codes: [id number] INP/OBS CARE(HIGH) TANO FAJARDO MD Nov 21, 2024 12:43
[2024-11-21 15:28] LABS: Urine Budding Yeast OCCASIONAL /hpf (None Seen); Urine Protein, UAD Negative (Negative)
--- NOTE | 2024-11-21 18:12 | DVHPN2 ---
Progress Note - Dictate Date Seen: Nov 21, 2024 Medical Necessity Reason Pt with a Central, PICC or Fol: Yes The following are medically ne: Patterson Catheter Reason for patterson catheter: Strict I&O Subjective This 68-year-old female who is morbidly obese admitted symptomatic anemia S/P 1 unit PRBC. Her stool for occult blood is positive with the complaints of weakness tiredness Had colonoscopy a few years ago at the [facility]; She had some polyps never had an EGD after the gastric bypass in 2001 EGD showed a normal and intact gastrojejunostomy with no ulceration and no bleeding Patient was given MiraLax for her constipation vital signs Vital Sign Date Time Temp Pulse Resp B/P (MAP) Pulse Ox O2 Delivery O2 Flow Rate FiO2 11/21/24 16:49 98.3 91 18 118/60 (79) 97 98.3 11/21/24 08:05 Nasal Cannula* 2 28 Total Intake and Output 11/20/24 11/20/24 11/21/24 15:00 23:00 07:00 Intake Total 110 ml 1000 ml Output Total 5525 ml 1900 ml Balance 110 ml -5525 ml -900 ml medications Current Medications Medications Dose Ordered Sig/Wiinfred Route Start Time Stop Time Status Last Admin Dose Admin Atorvastatin Calcium 20 mg HS PO 11/13/24 22:00 11/20/24 23:30 20 MG Levothyroxine Sodium 25 mcg QAM@0600 PO 11/13/24 06:00 11/21/24 05:35 25 MCG Albuterol 2.5 mg Q4HPRN PRN NEB 11/13/24 05:45 11/15/24 14:23 2.5 MG Ipratropium Lamar 0.5 mg Q4HPRN PRN NEB 11/13/24 05:45 11/15/24 14:23 0.5 MG Sodium Chloride 10 ml Q8HR IV 11/13/24 06:00 11/21/24 14:00 10 ML Acetaminophen/ Hydrocodone Bitart 1 tab Q4HP PRN PO 11/13/24 05:45 11/21/24 09:36 1 TAB Ondansetron HCl 4 mg Q4HP PRN IV 11/13/24 05:45 Docusate Sodium 100 mg BIDPRN PRN PO 11/13/24 05:45 11/15/24 08:17 100 MG Acetaminophen 650 mg Q6HP PRN PO 11/13/24 05:45 11/20/24 01:31 650 MG Nitroglycerin 0.4 mg Q5MINP PRN SL 11/13/24 05:45 Morphine Sulfate 2 mg Q30M PRN IV 11/13/24 05:45 Guaifenesin 200 mg Q4HP PRN PO 11/14/24 13:15 11/14/24 14:20 200 MG Albuterol 2.5 mg Q6HR NEB 11/15/24 18:00 11/21/24 11:41 2.5 MG Ipratropium Lamar 0.5 mg Q6HR NEB 11/15/24 18:00 11/21/24 11:41 0.5 MG Polyethylene Glycol 17 gm DAILY PO 11/16/24 10:00 11/20/24 09:31 17 GM Pantoprazole Sodium 40 mg BID@0600,1700 PO 11/16/24 06:00 11/21/24 17:28 40 MG Zolpidem Tartrate 10 mg HSPRN PRN PO 11/18/24 11:45 11/20/24 23:30 10 MG Prednisone 20 mg DAILY PO 11/19/24 18:00 11/22/24 17:59 11/21/24 09:35 20 MG Bumetanide 1 mg DAILY PO 11/20/24 10:00 11/21/24 09:36 1 MG Ferrous Sulfate 325 mg BID PO 11/21/24 10:00 11/21/24 09:35 325 MG objective Morbidly obese female patient lying in the bed, no acute distress General: Morbidly obese, mild pallor, mucosae are moist Cardiovascular: Regular S1 and S2. No murmurs, gallops or rubs. No JVD elevation. 3+ pedal edema Respiratory: On NC 2 L supplementation Abdomen: Soft, nontender, nondistended, obese normoactive bowel sounds, no rebound tenderness, no organomegaly, no masses MSK/skin: Mobilizes 4 limbs. Skin is dry and warm; extensive lymphedema laboratory and microbiology Laboratory Tests 11/21/24 06:26 11/20/24 05:43 Test 11/21/24 06:26 Range/Units Serum Glucose 86 74-106 mg/dL Problems(with codes): (1) Gastric bypass status for obesity (2) Lymphedema (3) Fluid overload (4) Generalized weakness (5) Symptomatic anemia (6) Asthma exacerbation (7) Acute respiratory failure Prognosis Plan Continue supportive care Patient was given reassurance that she does not need any surgery for a hernia at this time Underlying diagnosis of possible cirrhosis related to mesh Patient was advised that it will be difficult to perform a colonoscopy on her because of her morbid obesity and severe lymphedema in the legs Continue to monitor labs, iron supplements and vitamin B12 supplements and DC aspirin and NSAIDs MiraLax and Colace for her constipation Dietary Evaluation Review Recommendations by RD: Decrease Calorie Intake Comments: 1) MVI 1 tab daily, ferrous sulfate 325mg BID 2) Check VitD level 3) Consider Cardiac diet 4) Refer CDE for weight management on DC Expected Outcomes/Goals: To meet 75% estimated needs FU 3-5 days Plan discussed with: Patient CC Plasma Assessment Blood Product Administration S: [id number] YOLANDA BURKS MD Nov 21, 2024 18:12
[2024-11-22] VITALS (11 sets, daily range): BP systolic 110–120; BP diastolic 52–62; PULSE 66–102; RESP 14–17; TEMP 98.3–98.5; O2SAT 91–100
[2024-11-22 06:33] LABS: Hematocrit 28.4 % (36.0-46.0); Hemoglobin 8.7 g/dL (12.2-16.2); Mean Corpuscular Hemoglobin 22.5 pg (28.0-32.0); Mean Corpuscular Volume 73.5 fL (80.0-100.0); Nucleated Red Blood Cells % 0.1 %
[2024-11-22 06:49] LABS: Anion Gap 5 (5-15); Potassium 3.9 mmol/L (3.5-5.1); Sodium 140 mmol/L (136-145)
[2024-11-22 06:50] LABS: Calcium 8.8 mg/dL (8.7-10.4)
[2024-11-22 06:51] LABS: Carbon Dioxide 38 mmol/L (20-31); Chloride 97 mmol/L (98-107)
[2024-11-22 06:54] LABS: Glucose 76 mg/dL (74-106)
[2024-11-22 06:55] LABS: BUN/Creatinine Ratio 25.3 (10.0-20.0); Blood Urea Nitrogen 23 mg/dL (9-23)
--- NOTE | 2024-11-22 10:51 | DVH ---
EXAM: XY CHEST PORTABLE Indication: cough Technique: Single frontal view of the chest was obtained Comparison: XY CHEST PORTABLE on DOS: 11/13/24 FINDINGS: Lines and Tubes: None Lungs: No focal consolidation. Mild pulmonary vascular congestion. Pleura: No effusion. No pneumothorax. Cardiomediastinal contours: Cardiomegaly. Bones: No acute osseous abnormality. IMPRESSION: Cardiomegaly with mild pulmonary vascular congestion.
[2024-11-22] MEDS ORDERED: FERR-7 PO (12:05)
[2024-11-22] MEDS ORDERED: ALBUAER3 IN (12:05)
[2024-11-22] MEDS ORDERED: ZOLP10TA PO (12:05)
[2024-11-22] MEDS ORDERED: PANT40T PO (12:05)
--- NOTE | 2024-11-22 12:16 | DVHDS2 ---
Discharge Summary Date of Admission Nov 13, 2024 at 05:33 Date of Discharge: Nov 22, 2024 Admitting Diagnosis Generalized weakness Wounds: EGD Labs/Diagnostic Data: Laboratory Results Test 11/22/24 04:46 11/21/24 14:31 11/21/24 06:26 11/20/24 05:43 White Blood Count 8.0 10^3/uL (4.4-10.8) Red Blood Count 3.86 10^6/uL (4.0-5.20) Hemoglobin 8.7 g/dL (12.2-16.2) Hematocrit 28.4 % (36.0-46.0) Mean Corpuscular Volume 73.5 fL (80.0-100.0) Mean Corpuscular Hemoglobin 22.5 pg (28.0-32.0) Mean Corpuscular Hemoglobin Concent 30.6 g/dL (32.0-36.0) Red Cell Distribution Width 24.1 % (11.8-14.3) Platelet Count 166 10^3/uL (140-450) Mean Platelet Volume 9.4 fL (6.9-10.8) Neutrophils (%) (Auto) 47.6 % (37.0-80.0) Lymphocytes (%) (Auto) 40.3 % (10.0-50.0) Monocytes (%) (Auto) 7.5 % (0.0-12.0) Eosinophils (%) (Auto) 4.2 % (0.0-7.0) Basophils (%) (Auto) 0.4 % (0.0-2.0) Neutrophils # (Auto) 3.8 10 ^3/uL (1.6-8.6) Lymphocytes # (Auto) 3.2 10 ^3/uL (0.4-5.4) Monocytes # (Auto) 0.6 10 ^3/uL (0-1.3) Eosinophils # (Auto) 0.3 10 ^3/uL (0-0.8) Basophils # (Auto) 0 10 ^3/uL (0-0.2) Nucleated Red Blood Cells 0.1 % Sodium Level 140 mmol/L (136-145) Potassium Level 3.9 mmol/L (3.5-5.1) Chloride Level 97 mmol/L (98-107) Carbon Dioxide Level 38 mmol/L (20-31) Anion Gap 5 (5-15) Blood Urea Nitrogen 23 mg/dL (9-23) Creatinine 0.91 mg/dL (0.550-1.02) Glomerular Filtration Rate Calc 70 mL/min (>90) BUN/Creatinine Ratio 25.3 (10.0-20.0) Serum Glucose 76 mg/dL (74-106) Calcium Level 8.8 mg/dL (8.7-10.4) Urine Color Colorless (Yellow) Urine Clarity Clear (Clear) Urine pH 7.0 (5.0-9.0) Urine Specific [place]rop 1.007 (1.001-1.035) Urine Protein Negative (Negative) Urine Ketones Negative (Negative) Urine Blood Trace /uL (Negative) Urine Nitrite Negative (Negative) Urine Bilirubin Negative (Negative) Urine Urobilinogen Normal mg/dL (Negative) Urine Leukocyte Esterase 1+ /uL (Negative) Urine RBC 8 /hpf (0 - 4) Urine Microscopic WBC 8 /HPF (0-5) Urine Squamous Epithelial Cells None seen /hpf (<5) Urine Bacteria Few /hpf (None Seen) Urine Yeast (Budding) Occasional /hpf (None Urine Glucose Normal mg/dL (Normal) Carcinoembryonic Antigen 6.98 ng/mL (<=5.0) Total Bilirubin 0.4 mg/dL (0.2-1.0) Aspartate Amino Transferase (AST) 33 U/L (13-40) Alanine Aminotransferase (ALT) 27 U/L (7-40) Alkaline Phosphatase 67 U/L (46-116) Total Protein 4.5 g/dL (5.7-8.2) Albumin 2.8 g/dL (3.2-4.8) Test 11/19/24 12:45 11/18/24 23:59 11/17/24 06:05 11/16/24 00:55 Blood Gas Specimen Type Arterial Blood Gas Sample Site Left radial Blood Gas Patient Temperature 37.0 Arterial Blood Date Drawn [id number] Arterial Blood pH 7.527 (7.350-7.450) Arterial Blood Partial Pressure CO2 39.4 mmHg (32.0-45.0) Arterial Blood Partial Pressure O2 64.7 mmHg (83.0-108.0) Arterial Blood HCO3 32.0 mmol/L (21.0-28.0) Arterial Blood Oxygen Saturation 90.6 % (94.0-98.0) Arterial Blood Base Excess 8.5 mmol/L (-2.0-3.0) Arterial Blood Oxyhemoglobin 89.5 % (94.0-98.0) Arterial Blood Carboxyhemoglobin 1.0 % (0.5-1.5) Arterial Blood Methemoglobin 0.2 % (0.0-1.5) Juan Jose Test Yes Blood Gas Total Hemoglobin 8.80 g/dL (12.0-16.0) Blood Gas Modality Nasal cannula FiO2 % 28.0 Prothrombin Time 12.0 sec (9.3-11.8) Prothrombin Time INR 1.15 (0.9-1.15) Activated Partial Thromboplast Time 23.7 SEC (24.5-34.5) Iron Level 19 ug/dL (50-170) Total Iron Binding Capacity 291 ug/dL (250-425) Percent Iron Saturation 6.5 % (15-50) Ferritin 4.6 ng/mL (10-291) Stool Occult Blood Positive (Negative) Stool Occult Blood Sample #3 (Negative) Test 11/13/24 08:00 11/13/24 01:04 11/13/24 00:10 Thyroid Stimulating Hormone (TSH) 2.28 uIU/mL (0.55-4.78) Troponin I High Sensitivity < 3 ng/L (</=34) Platelet Estimate Adequate Hypochromasia (manual) Moderate Anisocytosis (manual) Slight Microcytosis Slight Stomatocytes Few B-Type Natriuretic Peptide 238.74 pg/mL (0-100) Other Laboratory Tests 11/22/24 04:46 Brief Hx & Hospital Course: 64-year-old female with multiple medical problems including chronic anemia kidney disease hypertension hyperlipidemia hypothyroidism chronic lymphedema history of gastric bypass 2002 history of hiatal hernia repair 2003 history of smoking for 20 years quit in 1998 previous hospitalizations at [facility] and [facility] COPD home oxygen use came in complaining of generalized weakness and shortness of breaths. Hemoglobin 6.2 improved to 8.3 after 3 units RBC transfusion EGD by Dr. Rosaline Gilmore showed no evidence of anastomotic ulcer and no bleeding in the upper GI tract. Patient was seen by Dr. Duque for COPD exacerbation CT abdomen pelvis with IV contrast negative for any acute pathology patient was placed on Bumex by the acid treater for the lymphedema. DVT ruled out. Patient is grossly obese with a BMI of 62. Received physical therapy Patient has significantly improved and being discharged home on home health for physical therapy medication management and safety evaluation Consults/Reason for consult GI Nephrology Operations or Procedures EGD Condition at Discharge: Fair Final Diagnosis/Problems List Severe symptomatic anemia hemoglobin 6.2 improved to 8.3 after 3 units RBC transfusion, now on iron transfusion, Intact gastrojejunostomy with no evidence of anastomotic ulcer and no bleeding in the upper GI tract by EGD by Dr. Rosaline Gilmore on 11/19/2024 Acute hypoxic respiratory failure: Oxygen by nasal cannula Acute asthma exacerbation: Albuterol Atrovent Solu-Medrol Acute COPD exacerbation: Consult for Dr. Duque appreciated Acute generalized weakness Chronic anemia Arthritis Chronic kidney disease GERD Hypertension Hyperlipidemia Hypothyroidism Lymphedema CT abdomen pelvis with IV contrast negative for any acute pathology Morbid obesity History of gastric bypass 2002 Hiatal hernia repair 2003 History of smoking for 20 years quit in 1998 Previous hospitalizations in [facility] and [facility] History of bilateral inguinal hernia Obstructive Sleep apnea on CPAP History of cholecystectomy DVT ruled out Discharge Disposition: Home with Health Services Discharge Instruct/Medications Diet: Cardiac 2g Na,low cholest Activity: Light activity Follow Up/Referral: Follow up with the primary Dr in one week Resume all previous home meds Medications: Iron tablets Bumex Pantoprazole Ambien Transmitted to [facility] Scheduled Albuterol Sulfate (Ventolin Mdi), 90 MCG IN QID Bumetanide (Bumetanide), 0.5 TAB PO DAILY Ferrous Sulfate (Iron), 325 MG PO BID Pantoprazole Sodium Sesquihydr (Pantoprazole Sodium), 40 MG PO BID Scheduled PRN Zolpidem Tartrate (Ambien), 1 TAB PO QPM PRN 39 (Time taken for discharge summary 39 minutes) Discharge Statement: "Patient was advised to return to the ER or call 911 if any headaches, dizziness, shortness of breath, chest pain, abdominal pain, bleeding, fevers, or worsening of medical condition. Patient was counseled about treatment plan, medications, possible side effects, patientverbalized understanding. All questions were answered to the best of my ability. This discharge took greater then 30 minutes in planning, reviewing documentation, counseling the patient, and discussing with other team members." ASSESSMENT ASSESSMENT Hospital Course Improved Assessment Severe symptomatic anemia hemoglobin 6.2 improved to 8.3 after 3 units RBC transfusion, now on iron transfusion, Intact gastrojejunostomy with no evidence of anastomotic ulcer and no bleeding in the upper GI tract by EGD by Dr. Rosaline Gilmore on 11/19/2024 Acute hypoxic respiratory failure: Oxygen by nasal cannula Acute asthma exacerbation: Albuterol Atrovent Solu-Medrol Acute COPD exacerbation: Consult for Dr. Duque appreciated Acute generalized weakness Chronic anemia Arthritis Chronic kidney disease GERD Hypertension Hyperlipidemia Hypothyroidism Lymphedema CT abdomen pelvis with IV contrast negative for any acute pathology Morbid obesity History of gastric bypass 2003 Hiatal hernia repair 2003 History of smoking for 20 years quit in 1998 Previous hospitalizations in [facility] and [facility] History of bilateral inguinal hernia Obstructive Sleep apnea on CPAP History of cholecystectomy DVT ruled out Date of Service: Nov 22, 2024 Billing Provider: TANO FAJARDO MD Common Visit Codes: 30907-CVY/OBS DISCH DAY >30min TANO FAJARDO MD Nov 22, 2024 12:16
--- NOTE | 2024-11-22 13:39 | DVHPN2 ---
Progress Note Date Seen: Nov 22, 2024 Resident Creating Document: NORMA ABERNATHY RESIDENT Medical Necessity Reason Pt with a Central, PICC or Fol: Yes The following are medically ne: Patterson Catheter Reason for patterson catheter: Strict I&O Subjective Review of Systems The patient is a 64-year-old female morbidly obese with multiple past medical history including arthritis, asthma, anemia, thyroid disease, and hypertension who presented to [facility] ED with complaint of shortness of breaths. Patient reports she has been experiencing shortness of breaths associated with generalized weakness, dry cough, wheezing, getting worse that prompted this visit. She states she has used her home nebulizer and inhaler without relief. Patient also notes worsening lower extremity edema for the past 3 weeks, with edema now extending to her torso and upper extremities. She reports she has been seen by a assembling motor builder in the past, underwent workup including Holter monitoring, and was told there was no heart disease. Nephrology consulted for hyperkalemia 11/15-Patient seen and examined at bedside. Chocolate and jello seen at bedside, patient was counseled regarding healthy diet and low-potassium diet. 11/16-patient seen and examined at the bedside. Urine output 4850 cc in 24 hours. Continue Bumex. Stool occult is positive. One packed RBC pending. 11/17-patient seen and examined, urine output 13853 cc in 24 hours. Continue Bumex. 11/18-patient seen and examined at bedside. Urine output 950 cc. IV iron daily started. Solu-Medrol started by recreation aide. Plan for possible EGD tomorrow. 11/19-patient seen and examined. Urine output 4700. Patient is NPO given possible endoscopy today. Bumex on hold. Creatinine trending down. 11/22-patient seen and examined. Urine output around 5 L. continue Bumex 1 mg daily. Objective vital signs Vital Sign Date Time Temp Pulse Resp B/P (MAP) Pulse Ox O2 Delivery O2 Flow Rate FiO2 11/22/24 12:36 98.3 87 17 120/62 (81) 95 98.3 11/22/24 08:35 2.0 28 11/22/24 08:29 Nasal Cannula* Total Intake and Output 11/21/24 11/21/24 11/22/24 15:00 23:00 07:00 Intake Total 600 ml 800 ml Output Total 1100 ml 1800 ml 2500 ml Balance -1100 ml -1200 ml -1700 ml medications Current Medications Medications Dose Ordered Sig/Winifred Route Start Time Stop Time Status Last Admin Dose Admin Atorvastatin Calcium 20 mg HS PO 11/13/24 22:00 11/21/24 22:12 20 MG Levothyroxine Sodium 25 mcg QAM@0600 PO 11/13/24 06:00 11/22/24 05:40 25 MCG Albuterol 2.5 mg Q4HPRN PRN NEB 11/13/24 05:45 11/15/24 14:23 2.5 MG Ipratropium Pease 0.5 mg Q4HPRN PRN NEB 11/13/24 05:45 11/15/24 14:23 0.5 MG Sodium Chloride 10 ml Q8HR IV 11/13/24 06:00 11/22/24 05:40 10 ML Ondansetron HCl 4 mg Q4HP PRN IV 11/13/24 05:45 Docusate Sodium 100 mg BIDPRN PRN PO 11/13/24 05:45 11/15/24 08:17 100 MG Acetaminophen 650 mg Q6HP PRN PO 11/13/24 05:45 11/22/24 08:56 650 MG Nitroglycerin 0.4 mg Q5MINP PRN SL 11/13/24 05:45 Guaifenesin 200 mg Q4HP PRN PO 11/14/24 13:15 11/14/24 14:20 200 MG Albuterol 2.5 mg Q6HR NEB 11/15/24 18:00 11/22/24 11:44 2.5 MG Ipratropium Pease 0.5 mg Q6HR NEB 11/15/24 18:00 11/22/24 11:44 0.5 MG Polyethylene Glycol 17 gm DAILY PO 11/16/24 10:00 11/20/24 09:31 17 GM Pantoprazole Sodium 40 mg BID@0600,1700 PO 11/16/24 06:00 11/22/24 05:40 40 MG Zolpidem Tartrate 10 mg HSPRN PRN PO 11/18/24 11:45 11/22/24 00:17 10 MG Prednisone 20 mg DAILY PO 11/19/24 18:00 11/22/24 17:59 11/22/24 08:55 20 MG Bumetanide 1 mg DAILY PO 11/20/24 10:00 11/22/24 08:55 1 MG Ferrous Sulfate 325 mg BID PO 11/21/24 10:00 11/22/24 08:56 325 MG Examination Morbidly obese female patient lying in the bed, no acute distress General: Generalized anasarca. Morbidly obese, pillar, mucosae are moist Cardiovascular: Regular S1 and S2. No murmurs, gallops or rubs. No JVD elevation. 3+ pedal edema Respiratory: On NC 2 L supplementation Abdomen: Soft, nontender, nondistended, normoactive bowel sounds, no rebound tenderness, no organomegaly, no masses Genitourinary: Deferred MSK/skin: Mobilizes 4 limbs. Skin is dry and warm Neurological: No motor, no sensitive deficits, normal speech. Pupils are isocoric and reactive. Psych/Mental Status: A/Ox3 laboratory and microbiology Laboratory Tests 11/22/24 04:46 Test 11/22/24 04:46 Range/Units Serum Glucose 76 74-106 mg/dL Labs and/or images reviewed: Labs reviewed by me, Image(s) reviewed by me Problem List/Assessment/Plan Problem List/Assessment/Plan Hyperkalemia Pulmonary edema Acute hypoxic respiratory failure secondary to above Acute microcytic anemia questionable blood loss status post blood transfusion x2 Iron-deficiency anemia ? Liver cirrhosis Diverticulosis Small bilateral pleural effusion Morbid obesity History of gastric bypass Chest CT shows moderate to large stool volume within the colon, small bilateral pleural effusion, hepatic steatosis, liver capsule is nodular may represent cirrhosis. Plan: Given the stable potassium, creatinine back to baseline, we recommend continuing Bumex 1 mg p.o. daily Patient will benefit from 1 mg Bumex once daily on discharge. Transitioned IV iron to oral supplementation daily Status post 2 packed RBC transfusion Low-potassium diet advised Avoid preserved and processed food high in potassium Discontinue potassium supplementation-patient takes KCl tablets at home Recommend antibiotics were cystitis Outpatient Nephrology workup advised Plan discussed with patient, at bedside in which all questions have been answered Case discussed with Dr. Esteban Plan discussed with: Patient Dietary Evaluation Review Recommendations by RD: Decrease Calorie Intake Comments: 1) MVI 1 tab daily, ferrous sulfate 325mg BID 2) Check VitD level 3) Consider Cardiac diet 4) Refer CDE for weight management on DC Expected Outcomes/Goals: To meet 75% estimated needs FU 3-5 days CC Plasma Assessment Blood Product Administration S: [id number] NORMA ABERNATHY RESIDENT Nov 22, 2024 13:39
--- NOTE | 2024-11-22 18:23 | DVHPN2 ---
Progress Note - Dictate Date Seen: Nov 22, 2024 Medical Necessity Reason Pt with a Central, PICC or Fol: Yes The following are medically ne: Patterson Catheter Reason for patterson catheter: Strict I&O vital signs Vital Sign Date Time Temp Pulse Resp B/P (MAP) Pulse Ox O2 Delivery O2 Flow Rate FiO2 11/22/24 17:00 98.3 98 17 112/52 (72) 91 98.3 11/22/24 08:35 2.0 28 11/22/24 08:29 Nasal Cannula* Total Intake and Output 11/21/24 11/21/24 11/22/24 15:00 23:00 07:00 Intake Total 600 ml 800 ml Output Total 1100 ml 1800 ml 2500 ml Balance -1100 ml -1200 ml -1700 ml medications Current Medications Medications Dose Ordered Sig/Winifred Route Start Time Stop Time Status Last Admin Dose Admin Atorvastatin Calcium 20 mg HS PO 11/13/24 22:00 11/21/24 22:12 20 MG Levothyroxine Sodium 25 mcg QAM@0600 PO 11/13/24 06:00 11/22/24 05:40 25 MCG Albuterol 2.5 mg Q4HPRN PRN NEB 11/13/24 05:45 11/15/24 14:23 2.5 MG Ipratropium Liberty 0.5 mg Q4HPRN PRN NEB 11/13/24 05:45 11/15/24 14:23 0.5 MG Sodium Chloride 10 ml Q8HR IV 11/13/24 06:00 11/22/24 14:00 10 ML Ondansetron HCl 4 mg Q4HP PRN IV 11/13/24 05:45 Docusate Sodium 100 mg BIDPRN PRN PO 11/13/24 05:45 11/15/24 08:17 100 MG Acetaminophen 650 mg Q6HP PRN PO 11/13/24 05:45 11/22/24 08:56 650 MG Nitroglycerin 0.4 mg Q5MINP PRN SL 11/13/24 05:45 Guaifenesin 200 mg Q4HP PRN PO 11/14/24 13:15 11/14/24 14:20 200 MG Albuterol 2.5 mg Q6HR NEB 11/15/24 18:00 11/22/24 11:44 2.5 MG Ipratropium Liberty 0.5 mg Q6HR NEB 11/15/24 18:00 11/22/24 11:44 0.5 MG Polyethylene Glycol 17 gm DAILY PO 11/16/24 10:00 11/20/24 09:31 17 GM Pantoprazole Sodium 40 mg BID@0600,1700 PO 11/16/24 06:00 11/22/24 17:09 40 MG Zolpidem Tartrate 10 mg HSPRN PRN PO 11/18/24 11:45 11/22/24 00:17 10 MG Bumetanide 1 mg DAILY PO 11/20/24 10:00 11/22/24 08:55 1 MG Ferrous Sulfate 325 mg BID PO 11/21/24 10:00 11/22/24 08:56 325 MG laboratory and microbiology Laboratory Tests 11/22/24 04:46 Test 11/22/24 04:46 Range/Units Serum Glucose 76 74-106 mg/dL Assessment/Plan Acute hypoxic respiratory failure Dependence on supplemental oxygen Asthma exacerbation Pulmonary edema Atelectasis Anemia Super morbid obesity, BMI 68.6 Events: Low oxygen requirements On 2 liters nasal cannula No distress Labs and imaging reviewed Plan: Supplemental oxygen Titrate to keep O2 sats above 92%. Continue bronchodilators Continue steroids Incentive spirometry Antitussive PRN cough Monitor hemoglobin Monitor renal function. Monitor electrolytes. Supplement as necessary. Monitor ins and outs. DVT prophylaxis Dietary Evaluation Review Recommendations by RD: Decrease Calorie Intake Comments: 1) MVI 1 tab daily, ferrous sulfate 325mg BID 2) Check VitD level 3) Consider Cardiac diet 4) Refer CDE for weight management on DC Expected Outcomes/Goals: To meet 75% estimated needs FU 3-5 days Plan discussed with: Patient CC Plasma Assessment Blood Product Administration S: [id number] REJI WELDON MD Nov 22, 2024 18:22
== END 2024-11-22 19:35 | disposition home health service (06) | DRG 811 ==
LOC: EDUNIT# 23:35 → EDBD 23:35 → ER 23:35 → OVERFLOW 11-13 05:33 → TELE-WESTW 11-13 14:33
PROVIDERS: ADMIT Family Medicine; ATTEND Family Medicine
PROC: 30233N1 Transfusion of Nonautologous Red Blood Cells into Peripheral Vein, Percutaneous Approach (ICD-10-PCS; principal; 2024-11-13)
PROC: 5A09357 Assistance with Respiratory Ventilation, Less than 24 Consecutive Hours, Continuous Positive Airway Pressure (ICD-10-PCS; 2024-11-14)
PROC: 5A09357 Assistance with Respiratory Ventilation, Less than 24 Consecutive Hours, Continuous Positive Airway Pressure (ICD-10-PCS; 2024-11-15)
PROC: 5A09357 Assistance with Respiratory Ventilation, Less than 24 Consecutive Hours, Continuous Positive Airway Pressure (ICD-10-PCS; 2024-11-16)
PROC: 5A09357 Assistance with Respiratory Ventilation, Less than 24 Consecutive Hours, Continuous Positive Airway Pressure (ICD-10-PCS; 2024-11-17)
PROC: 0DB68ZX Excision of Stomach, Via Natural or Artificial Opening Endoscopic, Diagnostic (ICD-10-PCS; 2024-11-19)
PROC: 0DB88ZX Excision of Small Intestine, Via Natural or Artificial Opening Endoscopic, Diagnostic (ICD-10-PCS; 2024-11-19)
PROC: 0DB48ZX Excision of Esophagogastric Junction, Via Natural or Artificial Opening Endoscopic, Diagnostic (ICD-10-PCS; 2024-11-19)
DX: D50.9 Iron deficiency anemia, unspecified (principal); J96.01 Acute respiratory failure with hypoxia; J44.1 Chronic obstructive pulmonary disease with (acute) exacerbation; J45.901 Unspecified asthma with (acute) exacerbation; J98.11 Atelectasis; J81.1 Chronic pulmonary edema; Z68.44 Body mass index [BMI] 60.0-69.9, adult; K44.9 Diaphragmatic hernia without obstruction or gangrene; K57.30 Diverticulosis of large intestine without perforation or abscess without bleeding; K21.9 Gastro-esophageal reflux disease without esophagitis; G47.33 Obstructive sleep apnea (adult) (pediatric); N18.9 Chronic kidney disease, unspecified; E66.01 Morbid (severe) obesity due to excess calories; E03.9 Hypothyroidism, unspecified; E78.5 Hyperlipidemia, unspecified; E87.5 Hyperkalemia; K76.0 Fatty (change of) liver, not elsewhere classified; M19.09 Primary osteoarthritis, other specified site; I89.0 Lymphedema, not elsewhere classified; I12.9 Hypertensive chronic kidney disease with stage 1 through stage 4 chronic kidney disease, or unspecified chronic kidney disease; K59.00 Constipation, unspecified; Z90.49 Acquired absence of other specified parts of digestive tract; Z99.81 Dependence on supplemental oxygen; Z98.84 Bariatric surgery status; Z90.710 Acquired absence of both cervix and uterus; Z88.3 Allergy status to other anti-infective agents; Z82.49 Family history of ischemic heart disease and other diseases of the circulatory system; Z82.0 Family history of epilepsy and other diseases of the nervous system; Z80.8 Family history of malignant neoplasm of other organs or systems; Z87.891 Personal history of nicotine dependence; Z86.718 Personal history of other venous thrombosis and embolism; Z88.0 Allergy status to penicillin; Z79.899 Other long term (current) drug therapy
CPT/HCPCS: 36415; 36600; 43239; 71045; 74177; 80048; 80053; 81001; 82270; 82378; 82728; 82805; 83540; 83550; 83880; 84443; 84484; 85018; 85025; 85610; 85730; 86850; 86900; 86901; 86920; 93005; 93306; 93970; 94640; 94660; 97110; 97116; 97163; 97530; 99291; G0378; J1756; J2003; J2250; J2405; J2704; J3490; P9047